=== PATIENT | male | born 1980 | race Caucasian/White ===

== ENCOUNTER 2024-05-23 13:17 | Inpatient (IN) ==
--- NOTE | 2024-05-23 14:05 | XRay Report ---
XR chest 1V portable CLINICAL HISTORY: Chest pain, nonspecific COMPARISON STUDY: 03/15/2024 FINDINGS: The present examination now demonstrates a dense bibasilar airspace opacities with air bron chograms. There are bilateral pleural effusions. There are also prominent reticular densities in the mid and upper lung zones bilaterally. Pulmonary vascularity remains unremarkable. IMPRESSION: Bilateral pneumonia with pleural effusions. ACT 112: Negative or not required by law. Electronically signed by: Cecilia Thomas M.D. 05/23/2024 2:03 PM
[2024-05-23 14:14] LABS: Basophils # (auto) 0.02 K/uL (0.00-0.20); Basophils % (auto) 0.1 %; Eosinophils # (auto) 0.03 K/uL (0.00-0.50); Eosinophils % (auto) 0.2 %; Hematocrit (blood only) 39.8 % (42.0-52.0); Hemoglobin 13.3 g/dl (14.0-18.0); Immature Granulocytes # (auto) 0.06 K/uL (0.01-0.20); Immature Granulocytes % (auto) 0.4 %; Lymphocytes # (auto) 2.46 K/uL (1.20-3.40); Lymphocytes % (auto) 16.5 %; Mean Corpuscular Hemoglobin 29.3 pg (25.0-34.0); Mean Corpuscular Hgb Conc 33.4 g/dL (32.0-36.0); Mean Corpuscular Volume 87.7 fL (80.0-100.0); Mean Platelet Volume 11.4 fL (9.4-12.4); Monocytes # (auto) 1.46 K/uL (0.11-0.59); Monocytes % (auto) 9.8 %; Neutrophils # (auto) 10.85 K/uL (1.40-6.50); Platelet Count 520 K/uL (130-400); RDW Coefficient of Variation 14.7 % (11.5-14.5); RDW Standard Deviation 46.8 fL (36.4-46.3); Red Blood Count 4.54 M/uL (4.70-6.10); White Blood Count 14.88 K/ul (4.8-10.8)
[2024-05-23 14:19] LABS: Anion Gap 9 (3-11); BUN Creatinine Ratio 14.4 (10-20); Blood Urea Nitrogen 15 mg/dl (6-23); Calcium 9.1 mg/dl (8.6-10.3); Carbon Dioxide 29 mmol/L (21-32); Chloride 102 mmol/L (98-107); Creatinine Clr Calc Pharmacy 72.9 ml/min; Glucose 91 mg/dl (70-99(Fasting)); Potassium 3.5 mmol/L (3.5-5.1); Sodium 140 mmol/L (136-145)
[2024-05-23 14:20] LABS: Alanine Aminotransferase 24 U/L (7-52); Albumin Globulin Ratio 1.4 (0.9-2); Albumin Level 3.9 gm/dl (3.4-5.0); Alkaline Phosphatase 74 U/L (34-104); Aspartate Aminotransferase 29 U/L (13-39); Bilirubin,Total 0.8 mg/dl (0.2-1.0); Globulin 2.7 gm/dl (2.5-4.0); Lipase < 3 U/L (11-82); Total Protein 6.6 gm/dl (6.0-8.3)
[2024-05-23 14:46] LABS: Troponin I High Sensitivity 1491.4 pg/ml (0-20)
[2024-05-23] MEDS: OPTIRAY 320 125ml IV ONE (15:28)
--- NOTE | 2024-05-23 15:50 | CT Scan Report ---
CT angio chest PE protocol CT DOSE: 321.9 mGy.cm HISTORY: PE chf. TECHNIQUE: Multiple CTA images of the chest were obtained after the intravenous administration of 118 ml Optiray. Coronal and sagittal MIPS were obtained from the axial data set and were submitted for review. All measurements were obtained according to NASCET criteria. A dose lowering technique was u tilized adhering to the principles of ALARA. COMPARISON STUDY: None FINDINGS: There are large bilateral pleural effusions with the adjacent compressive atelectasis. Ther e is no evidence of pulmonary embolism. There is diffuse prominence of the interstitial lung markings with perihilar haziness. In conjunction with cardiomegaly, this is consistent with CHF. Multiple marilu eolar nodules and groundglass opacities are also found associated with condition and it would be diff icult to exclude a pulmonary nodule on the basis of this examination. The upper airway is unremarkable. There is no evidence of aortic aneurysm or pericardial effusion. Th ere is no significant adenopathy. The upper abdominal images are noncontributory. IMPRESSION: No evidence of a pulmonary embolism. Findings consistent with cardiogenic pulmonary edema . ACT 112: Negative or not required by law. The above report was generated using voice recognition software. It may contain grammatical, syntax o r spelling errors. Electronically signed by: Cecilia Thomas M.D. 05/23/2024 3:49 PM
--- NOTE | 2024-05-23 15:52 | Emergency Department Note ---
Impression & Plan Acute non-ST elevation myocardial infarction (NSTEMI), Pneumonia, Congestive heart failure with cardiomyopathy and cardiomegaly, Acute hypoxic respiratory failure ED Provider Note NAME: JADE ROGERS AGE: 44 SEX: M : 1980 ARRIVES VIA: Walk-In INFORMANT: Patient, ED PROVIDER(S): Gricelda Baxter MD CHIEF COMPLAINT: Shortness of breath, heart failure HPI: this is a 44-year-old male presenting for shortness of breath x 5 days. Patient states that he was seen at an outside hospital yesterday where he was told he had a possible heart attack and diagnosed heart failure. He states he was being transferred to an outside hospital but could not do this due to childcare. Now he has childcare and presents here due to another doctor that he sees being in the area. He notes shortness of breath. He notes no chest pain however. He report exertional shortness of breath. Seen about 1 week ago at outside urgent care where he had signs of pneumonia on x-ray and was started on antibiotics, inhalers and steroids. ROS: See above HPI for pertinent positives & negatives. A total of 10 systems reviewed and were otherwise negative. PAST MEDICAL HISTORY: See Below PAST SURGICAL HISTORY: See Below FAMILY HISTORY: See Below SOCIAL HISTORY: See Below HOME MEDICATIONS: See Below ALLERGIES: See Below VITALS: See Below PHYSICAL EXAMINATION: General: resting comfortably in no acute distress Head: Normocephalic and atraumatic Eyes: Normal inspection, extraocular muscles intact Ear, nose, throat: Normal external exam Neck: Normal range of motion Respiratory: Crackles at the bases Cardiovascular: Regular rate/rhythm, no murmur GI: soft, nontender, no guarding or rebound Extremities: nontender, moves all extremities Neuro: The patient awake and alert, appropriately conversive, no focal deficits, symmetric faces Skin: Warm, dry, and intact MEDICAL DECISION MAKING: This is a 44-year-old male presenting for shortness of breath x 5 days. Patient reportedly had outside labs that showed elevated troponin and signs of heart failure as per the patient. -Vital signs reviewed showing tachycardia, hypoxia with 3 L oxygen requirement. He has signs of fluid overload with leg swelling, pleural effusions -Able to review the records outside facility where he was thought to be in either new onset heart failure from an NSTEMI versus sepsis from pneumonia. Patient left AGAINST MEDICAL ADVICE at this hospital presented here 1 day later. -Chest Xray independently interpreted by me showing likely large pleural effusions bilaterally versus focal opacities bilaterally -Patient troponin is elevated significantly here -The bloodwork is reviewed showing a leukocytosis of 14.88 with neutrophilic predominance. Otherwise electrolytes are within normal limits. Patient's troponin is significantly elevated at 1491. -Based on EKG as below, consider NSTEMI is high likelihood. Also consider pneumonia as this is what is reported on chest x-ray however this could be CHF concomitantly -Will start patient on heparin drip at this time for suspected NSTEMI. -Will met the patient for CHF, NSTEMI, possible pneumonia -Care discussed Dr. Street for admission Differential diagnosis: STEMI, NSTEMI, CHF, PE, pneumonia, sepsis Independent History obtained from: [facility] interpreted by me: ECG: ECG independently interpreted by me with sinus tachycardia rate of 128, normal [place], normal QRS, normal QTc, no ST segment elevations consistent with STEMI criteria Cardiac Monitoring: An order was placed for continuous cardiac monitoring. The monitor shows a rate of 112 with sinus tachycardia rhythm. Critical Care Note: I have personally spent 35 minutes of critical care time in the direct management of this patient. This includes bedside care, interpretation of diagnostic studies, and testing, discussion with consultants, patient, and family members, and other required patient management activities. This 35 minutes is in excess of all separately billable procedures. Past Med/Surg History Problem List (Updated 05/24/24 @ 13:26 by Gricelda Baxter MD) Acute hypoxic respiratory failure (Acute) Congestive heart failure with cardiomyopathy and cardiomegaly (Acute) Pneumonia (Acute) Acute non-ST elevation myocardial infarction (NSTEMI) (Acute) Valvular heart disease PNA (pneumonia) NSTEMI (non-ST elevated myocardial infarction) New onset of congestive heart failure Peripheral vascular disease Tobacco use Chronic kidney disease, stage I Persistent albuminuria Elevated bilirubin Serum calcium elevated Stenosis of right iliac artery Dyslipidemia Microalbuminuria Scapular dyskinesis Leg pain, right Foot pain, left (Acute) Diabetes mellitus (Chronic) Cellulitis of elbow (Acute) Foot pain, left (Acute) Hypoglycemia (Acute) Hypoglycemia (Acute) Encounter for pre-operative examination Elevated blood pressure reading Skin lesion Uncontrolled type 1 diabetes mellitus with retinopathy, with long-term current use of insulin (Chronic) Diabetic proliferative retinopathy Vitamin D deficiency Right shoulder pain Adhesive capsulitis of right shoulder Encounter for pre-operative examination Status post arthroscopy of shoulder Pain, dental (Chronic) Impacted teeth Tobacco abuse (Chronic) Soft tissue mass Depression Diabetes mellitus type 1 Medical History Hyperlipidemia Surgical History H/O arthroscopy of shoulder History of tooth extraction H/O shoulder surgery History of eye surgery Family History Father Diabetes Other No family history of adverse response to anesthesia Denies family history of Ovarian cancer Prostate cancer Heart disease Breast cancer Colorectal cancer Social History Smoking Status: Current every day smoker Tobacco Type: Cigarettes Age Started Using Tobacco: 17; packs per day: 1; Cigarettes Per Day: 1 PPD; Second Hand Exposure: No; Do You Dip or Chew Tobacco: No; Tobacco Cessation Education Requested by Patient: No Hx Alcohol Use: No Hx Substance Use: No Preferred Language: Trinidadian Communication Ability: Effective 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 Apprentice Required: No Beliefs That Will Affect Care: None marital status: Single Current Living Situation: Family Current Living Situation Comment: Lives at home with children current occupational status: unemployed Other Information That Helps Us Care for You: No Feels Safe at Home: Yes Safety Concerns: Feels Safe At This Time Diet: regular caffeine: Yes Dental Care, Regularly: Yes Physical Activity Frequency: Does not Exercise Seatbelt Use: never Assistive Devices: None Allergies Allergies Allergy/AdvReac Type Severity Reaction Status Date / Time mirtazapine AdvReac Mild Fatigued Verified 03/18/24 10:38 Home Meds Home Medications Medication Instructions Recorded Confirmed cholecalciferol (vitamin D3) 100 5,000 unit PO DAILY 09/11/22 05/23/24 mcg (4,000 unit) tablet albuterol sulfate 90 mcg/actuation 2 puff inhalation QID PRN 05/23/24 05/23/24 aerosol inhaler sob/wheeze amoxicillin 875 mg-potassium 1 tab PO BID 05/23/24 05/23/24 clavulanate 125 mg tablet insulin aspart U-100 100 unit/mL 100 unit subcut UD 05/23/24 05/23/24 subcutaneous solution (Novolog U-100 Insulin aspart) insulin glargine 100 unit/mL 25 - 30 unit subcut UD 05/23/24 05/23/24 subcutaneous solution (Lantus U-100 Insulin) lisinopril 2.5 mg tablet 2.5 mg PO UD 05/23/24 05/23/24 Previous Rx's Medication Instructions Recorded blood pressure monitor (Blood #1 ea 12/19/22 Pressure Kit) insulin syringe,safety needle 0.5 #700 ea 03/13/23 mL 30 gauge x 5/16" (BD SafetyGlide Insulin Syringe) blood sugar diagnostic (OneTouch #100 ea 06/15/23 Verio test strips) blood-glucose meter,continuous #1 ea 06/16/23 (Dexcom G6 Bed Operator) glucagon 3 mg/actuation nasal 3 mg intranasal ONCE #2 ea 10/21/23 spray (Baqsimi) urine glucose-ketones test #50 ea 11/04/23 atorvastatin 10 mg tablet 10 mg PO DAILY #30 tabs 04/13/24 blood-glucose sensor (Dexcom G6 #9 ea 04/18/24 Sensor device) blood-glucose transmitter (Dexcom #1 ea 04/18/24 G6 Transmitter device) Results & Data (ED) Vital Signs Vital Signs - 24 hr 05/23/24 13:31 05/23/24 13:56 05/23/24 13:56 Temperature 36.6 C Temperature Source Temporal Artery Scan Pulse Rate 117 H Pulse Rate [Apical] 110 H Pulse Rate from SpO2 Sensor Pulse Rhythm Pulse Rhythm [Apical] Respiratory Rate 20 18 Respiratory Effort / Characteristics Non-Labored Spontaneous Non-Labored Spontaneous Respiratory Depth Normal Normal Respiratory Pattern Regular Regular Blood Pressure 149/80 H Blood Pressure [Right Arm] 151/110 H Blood Pressure Mean 103 Blood Pressure Mean [Right Arm] 123 Blood Pressure Position Sitting Blood Pressure Position [Right Arm] Sitting Pulse Oximetry 90 87 L 92 Oxygen Delivery Method Room Air Nasal Cannula Nasal Cannula Oxygen Flow Rate 0 2 Sepsis Recent Fever Within 48 Hours No Sepsis New/Unexplained Change in Mental Status N/A Sepsis Action Taken by Nursing No Action Required Oxygen Flow Rate - Titration 2 Pulse Oximetry Post Tiitration 92 05/23/24 13:56 05/23/24 14:11 05/23/24 15:55 Temperature Temperature Source Pulse Rate 110 H 106 H Pulse Rate [Apical] 117 H Pulse Rate from SpO2 Sensor Pulse Rhythm Regular Pulse Rhythm [Apical] Regular Respiratory Rate 24 24 Respiratory Effort / Characteristics Non-Labored Spontaneous Respiratory Depth Normal Respiratory Pattern Regular Blood Pressure Blood Pressure [Right Arm] 161/104 H Blood Pressure Mean Blood Pressure Mean [Right Arm] 123 Blood Pressure Position Blood Pressure Position [Right Arm] Pulse Oximetry 92 92 Oxygen Delivery Method Nasal Cannula Nasal Cannula Oxygen Flow Rate 2 3 Sepsis Recent Fever Within 48 Hours Sepsis New/Unexplained Change in Mental Status Sepsis Action Taken by Nursing Oxygen Flow Rate - Titration Pulse Oximetry Post Tiitration 05/23/24 16:21 Temperature Temperature Source Pulse Rate 108 H Pulse Rate [Apical] Pulse Rate from SpO2 Sensor 108 H Pulse Rhythm Pulse Rhythm [Apical] Respiratory Rate 25 H Respiratory Effort / Characteristics Respiratory Depth Respiratory Pattern Blood Pressure Blood Pressure [Right Arm] Blood Pressure Mean Blood Pressure Mean [Right Arm] Blood Pressure Position Blood Pressure Position [Right Arm] Pulse Oximetry 92 Oxygen Delivery Method Oxygen Flow Rate Sepsis Recent Fever Within 48 Hours Sepsis New/Unexplained Change in Mental Status Sepsis Action Taken by Nursing Oxygen Flow Rate - Titration Pulse Oximetry Post Tiitration Laboratory Data 05/24/24 05:42 05/24/24 05:42 Lab Results 05/23/24 05/23/24 Range/Units 13:44 15:18 WBC 14.88 H (4.8-10.8) K/ul RBC 4.54 L (4.70-6.10) M/uL Hgb 13.3 L (14.0-18.0) g/dl Hct 39.8 L (42.0-52.0) % MCV 87.7 (80.0-100.0) fL MCH 29.3 (25.0-34.0) pg MCHC 33.4 (32.0-36.0) g/dL RDW Std Deviation 46.8 H (36.4-46.3) fL RDW Coeff of Ulises 14.7 H (11.5-14.5) % Plt Count 520 H (130-400) K/uL MPV 11.4 (9.4-12.4) fL Immature Gran % (Auto) 0.4 % Neut % (Auto) 73.0 % Lymph % (Auto) 16.5 % [place] % (Auto) 9.8 % Eos % (Auto) 0.2 % Baso % (Auto) 0.1 % Neut # (Auto) 10.85 H (1.40-6.50) K/uL Lymph # (Auto) 2.46 (1.20-3.40) K/uL [place] # (Auto) 1.46 H (0.11-0.59) K/uL Eos # (Auto) 0.03 (0.00-0.50) K/uL Baso # (Auto) 0.02 (0.00-0.20) K/uL Immature Gran # (Auto) 0.06 (0.01-0.20) K/uL PT 12.1 H (9.0-12.0) Seconds INR 1.1 (0.9-1.1) APTT 27 (21-31) Seconds PTT Ratio 1.0 Sodium 140 (136-145) mmol/L Potassium 3.5 (3.5-5.1) mmol/L Chloride 102 (98-107) mmol/L Carbon Dioxide 29 (21-32) mmol/L Anion Gap 9 (3-11) BUN 15 (6-23) mg/dl Creatinine 1.04 (0.6-1.4) mg/dl Est Cr Clr Drug Dosing 72.9 ml/min eGFR 90.80 BUN/Creatinine Ratio 14.4 (10-20) Glucose 91 (70-99(Fasting)) mg/dl Calcium 9.1 (8.6-10.3) mg/dl Total Bilirubin 0.8 (0.2-1.0) mg/dl AST 29 (13-39) U/L ALT 24 (7-52) U/L Alkaline Phosphatase 74 (34-104) U/L Troponin I High Sens 1491.4 H* 1554.4 H* (0-20) pg/ml Total Protein 6.6 (6.0-8.3) gm/dl Albumin 3.9 (3.4-5.0) gm/dl Globulin 2.7 (2.5-4.0) gm/dl Albumin/Globulin Ratio 1.4 (0.9-2) Lipase < 3 L (11-82) U/L Administered Medications Aspirin (Aspirin 81 Mg Ectab) 81 mg PO DAILY KIERAN Stop: 06/23/24 08:59 Last Admin: 05/24/24 08:00 Dose: 81 mg Documented By: COURTNEY Atorvastatin Calcium (Atorvastatin 40 Mg Tab) 40 mg PO [facility] Stop: 06/23/24 08:59 Last Admin: 05/24/24 08:00 Dose: 40 mg Documented By: COURTNEY Clopidogrel Bisulfate (Clopidogrel Bisulfate 75 Mg Tab) 75 mg PO [facility] Stop: 06/23/24 08:59 Last Admin: 05/24/24 07:59 Dose: 75 mg Documented By: COURTNEY Dextrose (Dextrose 50% 50 Ml Syringe) 25 - 50 ml IV UD PRN; Protocol PRN Reason: Hypoglycemia Protocol Stop: 06/22/24 16:46 Last Admin: 05/24/24 06:27 Dose: 25 ml Documented By: [facility] Furosemide (Furosemide 40 Mg/4 Ml Vial) 40 mg IV BID17 [facility] Stop: 06/23/24 08:59 Last Admin: 05/24/24 08:01 Dose: 40 mg Documented By: COURTNEY Heparin Sodium/Dextrose (Heparin 96682 Unit/500 Ml D5w) 25,000 units in 500 mls @ 15 mls/hr IV .Q24H [facility]; Protocol Stop: 06/22/24 16:14 Last Titration: 05/24/24 07:14 Dose: 750 units/hr, 15 mls/hr Documented By: NEW Co-signed By: COURTNEY Titration: 05/24/24 00:27 Dose: 700 units/hr, 14 mls/hr Documented By: NEW Co-signed By: ALEX Admin: 05/23/24 17:45 Dose: 700 units/hr, 14 mls/hr Documented By: MARIANA Co-signed By: PAMELAD Insulin Aspart (Insulin Aspart Per Unit Charge) 0 units SC ACHS [facility] Stop: 06/22/24 20:59 Last Admin: 05/24/24 11:44 Dose: Not Given Documented By: Admin: 05/24/24 07:52 Dose: Not Given Documented By: Admin: 05/23/24 20:39 Dose: Not Given Documented By: NALLELY Lisinopril (Lisinopril 2.5 Mg Tab) 2.5 mg PO BID [facility] Stop: 06/22/24 20:59 Last Admin: 05/24/24 08:01 Dose: 2.5 mg Documented By: Admin: 05/23/24 22:29 Dose: 2.5 mg Documented By: NALLELY Metoprolol Tartrate (Metoprolol Tartrate 25 Mg Tab) 12.5 mg PO BID [facility] Stop: 06/22/24 16:49 Last Admin: 05/24/24 08:00 Dose: 12.5 mg Documented By: Admin: 05/23/24 22:29 Dose: 12.5 mg Documented By: Admin: 05/23/24 17:38 Dose: 12.5 mg Documented By: MARIANA Nitroglycerin (Nitroglycerin 2% Ointment 30gm Tube) 0.5 inch EXT Q6H [facility] Stop: 06/22/24 16:59 Last Admin: 05/24/24 11:27 Dose: 0.5 inch Documented By: Admin: 05/24/24 06:03 Dose: 0.5 inch Documented By: Admin: 05/23/24 22:29 Dose: 0.5 inch Documented By: Admin: 05/23/24 18:07 Dose: 0.5 inch Documented By: MARIANA Discontinued Medications Clopidogrel Bisulfate (Clopidogrel Bisulfate 300 Mg Tab) 300 mg PO NOW STA Stop: 05/23/24 16:43 Last Admin: 05/23/24 17:37 Dose: 300 mg Documented By: MARIANA Furosemide (Furosemide 40 Mg/4 Ml Vial) 40 mg IV ONE ONE Stop: 05/23/24 16:43 Last Admin: 05/23/24 17:38 Dose: 40 mg Documented By: MARIANA Heparin Sodium (Porcine) (Heparin Sod (Porcine) 1000 Unit/Ml) 1 units IV NOW ONE Stop: 05/23/24 16:15 Last Admin: 05/23/24 17:43 Dose: 4,000 units Documented By: MARIANA Co-signed By: JENNIFER Heparin Sodium/Dextrose (Heparin Iv Adult Wt-Based Low-Dose W/ Initial Bolus Protocol) 1 each IV NOW STA; Protocol Stop: 05/23/24 16:00 Last Admin: 05/23/24 18:05 Dose: Not Given Documented By: MARIANA Insulin Glargine (Lantus Per Unit Charge) 10 units SQ NOW ONE Stop: 05/23/24 17:11 Last Admin: 05/23/24 17:41 Dose: 10 units Documented By: MARIANA Co-signed By: JENNIFER Ioversol (Optiray 320 125ml) 118 ml IV ONCE ONE Stop: 05/23/24 15:28 Last Admin: 05/23/24 15:28 Dose: 118 ml Documented By: [facility] Imaging Data Radiologist's Impression: Chest X-Ray 05/23/24 13:37 XR chest 1V portable CLINICAL HISTORY: Chest pain, nonspecific COMPARISON STUDY: 03/15/2024 FINDINGS: The present examination now demonstrates a dense bibasilar airspace opacities with air bronchograms. There are bilateral pleural effusions. There are also prominent reticular densities in the mid and upper lung zones bilaterally. Pulmonary vascularity remains unremarkable. IMPRESSION: Bilateral pneumonia with pleural effusions. ACT 112: Negative or not required by law. Electronically signed by: Cecilia Thomas M.D. 05/23/2024 2:03 PM Chest CTA 05/23/24 15:05 CT angio chest PE protocol CT DOSE: 321.9 mGy.cm HISTORY: PE chf. TECHNIQUE: Multiple CTA images of the chest were obtained after the intravenous administration of 118 ml Optiray. Coronal and sagittal MIPS were obtained from the axial data set and were submitted for review. All measurements were obtained according to NASCET criteria. A dose lowering technique was utilized adhering to the principles of ALARA. COMPARISON STUDY: None FINDINGS: There are large bilateral pleural effusions with the adjacent compressive atelectasis. There is no evidence of pulmonary embolism. There is diffuse prominence of the interstitial lung markings with perihilar haziness. In conjunction with cardiomegaly, this is consistent with CHF. Multiple alveolar nodules and groundglass opacities are also found associated with condition and it would be difficult to exclude a pulmonary nodule on the basis of this examination. The upper airway is unremarkable. There is no evidence of aortic aneurysm or pericardial effusion. There is no significant adenopathy. The upper abdominal images are noncontributory. IMPRESSION: No evidence of a pulmonary embolism. Findings consistent with cardiogenic pulmonary edema. ACT 112: Negative or not required by law. The above report was generated using voice recognition software. It may contain grammatical, syntax or spelling errors. Electronically signed by: Cecilia Thomas M.D. 05/23/2024 3:49 PM Discharge Plan Visit Data Chief Complaint: Shortness of Breath/Dyspnea Stated Complaint: SOB, ED Provider: Gricelda Baxter Discharge Problem: Acute non-ST elevation myocardial infarction (NSTEMI), Pneumonia, Congestive heart failure with cardiomyopathy and cardiomegaly, Acute hypoxic respiratory failure Patient Disposition: Admitted As Inpatient Discharge Instructions Interventions: ED Discharge Assessment Last Done: 05/23/24 20:57
--- NOTE | 2024-05-23 16:08 | Electrocardiogram Report ---
Test Reason : Blood Pressure : */* mmHG Vent. Rate : 128 BPM Atrial Rate : 128 BPM P-R Int : 114 ms QRS Dur : 76 ms QT Int : 304 ms P-R-T Axes : 43 68 160 degrees QTcB Int : 443 ms Sinus tachycardia Possible Left atrial enlargement Abnormal ECG When compared with ECG of 15-Mar-2024 08:46, Vent. rate has increased by 48 bpm Nonspecific T wave abnormality now evident in Inferior leads T wave inversion no longer evident in Anterior leads Confirmed by Ethan Rodriguez ([id number]) on 05/23/2024 4:06:31 PM Referred By: Confirmed By: Ethan Rodriguez
--- NOTE | 2024-05-23 16:18 | History & Physical Report ---
Date of Service May 23, 2024 Assessment & Plan (1) New onset of congestive heart failure: (2) NSTEMI (non-ST elevated myocardial infarction): (3) Peripheral vascular disease: (4) Tobacco use: (5) Chronic kidney disease, stage I: Plan 44-year-old male with past medical history of poorly controlled type I DM, CKD, PVD who left [facility] AMA after being diagnosed with an NSTEMI 05/22/2024, and he was been treated for pneumonia in the last week who presents to the ER with dyspnea, hypoxia a uptrending troponin and clinical evidence of CHF. Secondary pneumonia is also suspected due to persistent leukocytosis and mixed opacities in addition to edema. Patient has been heparinized for new acute decompensated heart failure without ST elevation on EKG. He is admitted for treatment of new CHF with Lasix, will continue treatment for potential underlying pneumonia, and consult cardiology for ischemic workup? Catheterization Recent NSTEMI, new onset heart failure Seen at OSH, patient left AGAINST MEDICAL ADVICE 05/22/2024 3L new oxygen requirement with fluid overload of the legs, bilateral pleural effusions CTA with bilateral pleural effusions, no PE, and multiple prior glass capacities/pulmonary edema Multiple cardiac risk factors including type I DM poorly controlled, tobacco use, hypertension. Patient with an uncle with an MT at age 37 and his father had an MT at 50s Suspect progressive angina, unstable angina and possible type I event morning of 05/22 Initial troponin 1491.4, repeat pending. Trended every 6 hours. OSH 2035 --> 1495 on 05/22 at [facility]. Uptrending today Echo pending Continue statin increased to 40 mg, adjust further based on AM lipid panel. - +Metoprolol 12.5mg BID tartrate - Nitro 0.5inch q6h Lasix 40 mg IV twice daily, potassium supplementation ordered Pneumonia Leukocytosis of 14 with neutrophilic predominance Has had chills in the last week and a cough preceding his chest pain, received 1 dose of an antibiotic yesterday and is otherwise not taking prednisone or an antibiotic since. Chest x-ray: Bilateral pneumonia CTAchest: No acute PE. Consistent with CHF, some groundglass opacities, pulmonary edema Will continue on treatment with Rocephin/doxycycline for immunity acquired pneumonia. Suspect predominantly due to NSTEMI and new onset heart failure Type I DM Last A1c 8% Reviewed patient's insulin pump on admission. Per settings uses approximately 20 units basal, 4-6 meals sliding scale with meals SSI based on basal rate ordered, will transition to pharmacy controlled glycemic management from pump due to patient having some difficulty with his pump recently. BSG 91 adequate at time of admission CKD Baseline creatinine around 0.93 Continue KARLA Hypertension Continue KARLA, metoprolol Peripheral vascular disease With ongoing tobacco use Had been seen for claudication in 2022. Preferred conservative medical therapy and was continued on cilostazol at that time. Has not been taking this recently. Aspirin, anticoagulation as noted DVT prophylaxis: Anticoagulated Diet: Clears/DM2, n.p.o. midnight pending cath evaluation CODE STATUS: Full code Disposition: PCU History of Present Illness Primary Care Provider: Jignesh Kingston DO Jm is a 44-year-old male with past medical history of CKD, PVD, tobacco use, uncontrolled type 1 diabetes, depression who presents to the ER with 5 days of dyspnea and fatigue, was told at an OSH that he may have had a heart attack and heart failure and was being transferred to another hospital but could not follow through with this due to childcare needs. After securing childcare does return to the ER at [facility] as he has providers in the area. Reports pneumonia on chest x-ray 1 week ago and was started on antibiotics, inhalers, steroids Isreal is seen at the bedside. Reports he had intermittent chest pain with exertion for a few weeks, but hadn't followed up on this yet. Missed his stress test due to son having th eflu. last week chest pain is much worse with exertion and going up stairs, takes longer to improve. yesterday occured for the first time while sleeping and woke him from sleep. That was the first time he had cp at rest. Did seem more severe than previously. Went to [facility] and was dx with NSTEMI. Left AMA due to childcare conerns Today 2-3x episdoes of cehst pain at rest lasting less than a minute. Chest pain free on admit assessment. Shortness of breath developed abruptly yesterday, and progressively worsening since. WOrse trying to lay flat/sleep. Legs are swollen in the last day. takes baby aspirin daily usually, did not take today beacuse they gave him 3 doses yesterday, a steroid, and an antibiotic yesterday Patient's uncle had an MT at age 37, father had an MT in 50s prescribed lisinopril but hasn't taken recently due to lightheadedness Is also had a feeling of feverishness and chills although no documented temperature in the last week. Has had a cough. DM1, on insulin pump. Not sure of basal rate. Not sure of 24 hour TDD. 20 u basal, 4-6 per meal based on PUMP No aspirin today Medical History: Reviewed Medications: Reviewed Surgical History: Reviewed Family history: Reviewed Allergies: Reviewed Social History: +Tobacco use. 1ppd. No ETOH Code Status: Full. Surrogate DM Yenifer Cleary. Allergies Allergy/AdvReac Type Severity Reaction Status Date / Time mirtazapine AdvReac Mild Fatigued Verified 03/18/24 10:38 Home Medications Medication Instructions Recorded Confirmed Type cholecalciferol (vitamin D3) 100 5,000 unit PO DAILY 09/11/22 03/25/24 History mcg (4,000 unit) tablet blood pressure monitor (Blood #1 ea 12/19/22 03/25/24 Rx Pressure Kit) insulin syringe,safety needle 0.5 #700 ea 03/13/23 03/25/24 Rx mL 30 gauge x 5/16" (BD SafetyGlide Insulin Syringe) blood sugar diagnostic (OneTouch #100 ea 06/15/23 03/25/24 Rx Verio test strips) blood-glucose meter,continuous #1 ea 06/16/23 03/25/24 Rx (Dexcom G6 Production Mechanic) glucagon 3 mg/actuation nasal 3 mg intranasal ONCE #2 ea 10/21/23 03/25/24 Rx spray (Baqsimi) urine glucose-ketones test #50 ea 11/04/23 03/25/24 Rx Lantus U-100 Insulin 100 unit/mL 25 - 30 unit (0.25 - 0.3 mL) 11/23/23 03/25/24 Rx subcutaneous solution (insulin subcut HS #3 vials glargine) lisinopril 2.5 mg tablet 2.5 mg PO BID #180 tabs 03/25/24 03/25/24 Rx atorvastatin 10 mg tablet 10 mg PO DAILY #30 tabs 04/13/24 Rx blood-glucose sensor (Dexcom G6 #9 ea 04/18/24 04/18/24 Rx Sensor device) blood-glucose transmitter (Dexcom #1 ea 04/18/24 04/18/24 Rx G6 Transmitter device) insulin aspart U-100 100 unit/mL See Rx Instructions .Route 04/26/24 Rx subcutaneous solution .COMPLEX #80 mL Past Med/Surg History Problem List (Updated 05/23/24 @ 16:[address] MD) NSTEMI (non-ST elevated myocardial infarction) New onset of congestive heart failure Peripheral vascular disease Tobacco use Chronic kidney disease, stage I Persistent albuminuria Elevated bilirubin Serum calcium elevated Stenosis of right iliac artery Dyslipidemia Microalbuminuria Scapular dyskinesis Leg pain, right Foot pain, left (Acute) Diabetes mellitus (Chronic) Cellulitis of elbow (Acute) Foot pain, left (Acute) Hypoglycemia (Acute) Hypoglycemia (Acute) Encounter for pre-operative examination Elevated blood pressure reading Skin lesion Uncontrolled type 1 diabetes mellitus with retinopathy, with long-term current use of insulin (Chronic) Diabetic proliferative retinopathy Vitamin D deficiency Right shoulder pain Adhesive capsulitis of right shoulder Encounter for pre-operative examination Status post arthroscopy of shoulder Pain, dental (Chronic) Impacted teeth Tobacco abuse (Chronic) Soft tissue mass Depression Diabetes mellitus type 1 Medical History Hyperlipidemia Surgical History H/O arthroscopy of shoulder History of tooth extraction H/O shoulder surgery History of eye surgery Family History Father Diabetes Other No family history of adverse response to anesthesia Denies family history of Ovarian cancer Prostate cancer Heart disease Breast cancer Colorectal cancer Social History Smoking Status: Current every day smoker Tobacco Type: Cigarettes Age Started Using Tobacco: 17; packs per day: 1; Cigarettes Per Day: 1 ppd- ADVISED; Second Hand Exposure: No; Do You Dip or Chew Tobacco: No; Hx Alcohol Use: Yes Alcohol type: beer and hard liquor Hx Substance Use: No Preferred Language: Chinese Communication Ability: Effective Cosmetic Account Coordinator Required: No Beliefs That Will Affect Care: None marital status: Single Current Living Situation: Family Current Living Situation Comment: LIVES W/ SONS current occupational status: unemployed Feels Safe at Home: Yes Diet: regular caffeine: Yes Dental Care, Regularly: Yes Physical Activity Frequency: Does not Exercise Seatbelt Use: never Assistive Devices: Glasses Physical Exam Physical Exam: General: A&Ox3. NAD. Cooperative. HEENT: Atraumatic, normocephalic. Pulm: Bibasilar rales. Comfortable on 3L NC. Cardiac: Regular, tachycardic. Radial pulses intact and symmetrical. +JVD Abdominal: Nontender, nondistended, soft. BS present. Ext: Bilateral LE pitting edema RUE with healing scabs/wounds from picking and cat scratches. No areas of demarkated erythema/warmth/tenderness suggestive of cellulitis Results & Data Results & Data Vital Signs (Past 12 Hours) Vital Signs Temp Pulse Pulse Resp BP BP Pulse Ox 05/23/24 15:55 117 H 24 161/104 H 92 05/23/24 14:11 106 H 05/23/24 13:56 110 H 24 92 05/23/24 13:56 110 H 18 151/110 H 92 05/23/24 13:56 87 L 05/23/24 13:31 36.6 C 117 H 20 149/80 H 90 O2 Del Method O2 Flow Rate 05/23/24 15:55 Nasal Cannula 3 05/23/24 14:11 05/23/24 13:56 Nasal Cannula 2 05/23/24 13:56 Nasal Cannula 2 05/23/24 13:56 Nasal Cannula 0 05/23/24 13:31 Room Air PG Care Time/CCT Total # of Minutes Spent Total Time Spent with Patient: Total time spent is greater than 50% in coordination of care (as documented) at patient's floor/unit and/or counseling patient: Coding Level of Care Code 42549 INT INP/OBS CARE 3/75MIN Diagnoses New onset of congestive heart failure I50.9 NSTEMI (non-ST elevated myocardial infarction) I21.4 Peripheral vascular disease I73.9 Tobacco use Z72.0 Chronic kidney disease, stage I N18.1
[2024-05-23] MEDS ORDERED: GLUCOSE 40% GEL 15 GM TUBE PO PRN (16:47)
[2024-05-23] MEDS ORDERED: PHARMACY GLYCEMIC MGMT CONSULT PRN (16:47)
[2024-05-23] MEDS ORDERED: GLUCAGON FOR INJ 1 MG VIAL SQ PRN (16:47)
[2024-05-23] MEDS ORDERED: GLUCOSE 10 TAB/TUBE PO PRN (16:47)
[2024-05-23] MEDS ORDERED: NITROGLYCERIN SL 0.4 MG/TAB TAB SL PRN (16:47)
[2024-05-23 17:07] LABS: INR 1.1 (0.9-1.1); Partial Thromboplastin Time 27 Seconds (21-31); Prothrombin Time 12.1 Seconds (9.0-12.0)
[2024-05-23] MEDS: CLOPIDOGREL BISULFATE 300 MG TAB PO STA (17:37)
[2024-05-23] MEDS: METOPROLOL TARTRATE 25 MG TAB PO SCH (17:38)
[2024-05-23] MEDS: FUROSEMIDE 40 MG/4 ML VIAL IV ONE (17:38)
[2024-05-23] MEDS: LANTUS PER UNIT CHARGE SQ ONE (17:41)
[2024-05-23] MEDS: HEPARIN SOD (PORCINE) 1000 UNIT/ML IV ONE (17:43)
[2024-05-23] MEDS: HEPARIN 25000 UNIT/500 ML D5W 25,000 UNITS/500 ML BAG IV SCH (17:45)
[2024-05-23] MEDS: Heparin IV Adult Wt-Based Low-Dose w/ INITIAL Bolus Protocol IV STA (18:05)
[2024-05-23] MEDS: NITROGLYCERIN 2% OINTMENT 30GM TUBE EXT SCH (18:07)
[2024-05-23] MEDS: INSULIN ASPART PER UNIT CHARGE SC SCH (20:39)
--- OUTSIDE RECORDS SUMMARY | 2024-05-23 20:58 | External Medical Summary ---
Author Name Unknown Address Unknown Organization R4LH:[facility] [address] [address] Laboratory Report Ordering Provider Test Date Status APRIL AIKEN 05/22/2024 15:19:00 Final Observation Date Value Abnormality Reference (Units ) Status Urine WBC 05/22/2024 15:43 4-6 Abnormal ZTF (/hpf) Fi nal Urine RBC 05/22/2024 15:43 0-4 ZTFR (/hpf) F inal Urine Bacteria 05/22/2024 15:43 None NONE (/h pf) Final Epithelial Cells 05/22/2024 15:43 0-5 ZTF (/ lpf) Final Finely Granular Casts 05/22/2024 15:43 0-1 0 (/lpf) Final Mucous, Urine 05/22/2024 15:43 None Seen Abnormal NONE Final Performing Location [facility] [address] [place] [id number]
--- OUTSIDE RECORDS SUMMARY | 2024-05-23 20:58 | External Medical Summary ---
Author Name Unknown Address Unknown Organization R4LH:[facility] [address] [address] Laboratory Report Ordering Provider Test Date Status APRIL AIKEN 05/22/2024 15:24:00 Final Observation Date Value Abnormality Reference (Units ) Status High Sensitivity Troponin I 05/22/2024 16:05 1495 Above upper panic limits <18 (ng/L) Final CubresaCoulter Access hs-Tro ponin I assay CRITICAL VALUE CALLED / READ BACK BY: DR. Zavala at ER 05/22/24 16:04v NL Performing Location [facility] [address] [address]
--- OUTSIDE RECORDS SUMMARY | 2024-05-23 20:58 | External Medical Summary ---
Author Name Unknown Address Unknown Organization R4LH:[facility] [address] [address] Laboratory Report Ordering Provider Test Date Status TANJA AIKENRaven 05/22/2024 13:55:00 Final Observation Date Value Abnormality Reference (Units ) Status B-Type Natriuretic Peptide 05/22/2024 14:50 1183 Above high normal <100 (pg/mL) Final Less than 100 pg/mL: heart f ailure is improbable. Greater than 100 pg/mL; heart failure is increasingly probable. At levels greater than 500 pg/mL; heart failure is the most likely diagnosis. BNP results should always be interpreted in the context of other clinical information, especially in the range between 100 and 500 pg/mL. *NEJM 350, No.7; 010-996; 05/18/03 Performing Location [facility] [address] [address]
--- OUTSIDE RECORDS SUMMARY | 2024-05-23 20:58 | External Medical Summary ---
Author Name Unknown Address Unknown Organization R4LH:[facility] [address] [address] Laboratory Report Ordering Provider Test Date Status APRIL AIKEN 05/22/2024 15:24:00 Final Observation Date Value Abnormality Reference (Units ) Status Lactic Acid 05/22/2024 15:54 3.3 Above upper panic pérez its 0.4-2.0 (mmol/L) Final CRITICAL VALUE CALLED / READ BACK BY: DR. Zavala 05/22/24 16:50 NL Performing Location [facility] [address] [address]
--- OUTSIDE RECORDS SUMMARY | 2024-05-23 20:58 | External Medical Summary ---
Author Name Unknown Address Unknown Organization R4LH:[facility] [address] [address] Laboratory Report Ordering Provider Test Date Status APRIL AIKEN 05/22/2024 15:19:00 Final Observation Date Value Abnormality Reference (Units ) Status UA Culture Screen 05/22/2024 15:43 Negative screen. Culture not indicated. Final Urine Clarity 05/22/2024 15:43 Clear CLER Final Urine Color 05/22/2024 15:43 Yellow YELL Final Specific [place], Urine 05/22/2024 15:43 1.025 1.000-1.025 Final Urine pH 05/22/2024 15:43 6.0 5.0-8.0 Final Urine Leukocyte Esterase 05/22/2024 15:43 Negative NEGAT Final Urine Nitrites 05/22/2024 15:43 Negative NEGAT Final Protein, Urine 05/22/2024 15:43 Moderate Abnormal NEGAT (mg/dL) Final Glucose, Urine 05/22/2024 15:43 Negative NEGAT (mg/dL) Final Urine Ketones 05/22/2024 15:43 Trace Abnormal NEGAT Final Urine Urobilinogen 05/22/2024 15:43 0.2 0.0-1.0 (mg/dL) Final Urine Bilirubin 05/22/2024 15:43 Negative NEGAT Final Blood, Urine 05/22/2024 15:43 Negative NEGAT Final Urine Source 05/22/2024 15:19 Clean Catch Urine Final Performing Location [facility] [address] [address]
--- OUTSIDE RECORDS SUMMARY | 2024-05-23 20:58 | External Medical Summary ---
Author Name Unknown Address Unknown Organization R4LH:[facility] [address] [address] Laboratory Report Ordering Provider Test Date Status DAVID MÉNDEZALEXIVIJI 05/22/2024 13:49:00 Final Observation Date Value Abnormality Reference (Units ) Status Prothrombin Time 05/22/2024 14:23 14.0 11.9-1 4.5 (Sec) Final INR 05/22/2024 14:23 1.1 Fin al Performing Location [facility] [address] [place] [address]
--- OUTSIDE RECORDS SUMMARY | 2024-05-23 20:58 | External Medical Summary ---
Author Name Unknown Address Unknown Organization R1WR:[facility] [address] [place] [address] Laboratory Report Ordering Provider Test Date Status APRIL AIKEN 05/22/2024 16:13:00 Final Observation Date Value Abnormality Reference (Units ) Status Glucose, POC 05/22/2024 16:14 168 Above high normal 70 -99 (mg/dL) Final Performing Location [facility] [address] [place] [address]
--- OUTSIDE RECORDS SUMMARY | 2024-05-23 20:58 | External Medical Summary ---
Author Name Unknown Address Unknown Organization R1WR:[facility] [address] [place] [address] Laboratory Report Ordering Provider Test Date Status APRIL HERNANDEZ 05/22/2024 14:08:00 Final Observation Date Value Abnormality Reference (Units ) Status Specimen Description 05/22/2024 13:50 Blood Final Special Requests 05/23/2024 12:56 RAC Final Culture 05/23/2024 12:56 Pending Fin al Report Status 05/23/2024 12:56 Pending Final Performing Location [facility] [address] [place] [address]
--- OUTSIDE RECORDS SUMMARY | 2024-05-23 20:58 | External Medical Summary ---
Author Name Unknown Address Unknown Organization R4LH:[facility] [address] [address] Laboratory Report Ordering Provider Test Date Status APRIL AIKEN 05/22/2024 14:24:00 Final Observation Date Value Abnormality Reference (Units ) Status High Sensitivity Troponin I 05/22/2024 15:41 2043 Above upper panic limits <18 (ng/L) Final BeckmanCoulter Access hs-Tro ponin I assay CRITICAL VALUE CALLED / READ BACK BY: DR CHEN,ER, [id number] NL Performing Location [facility] [address] [address]
--- OUTSIDE RECORDS SUMMARY | 2024-05-23 20:58 | External Medical Summary ---
Author Name Unknown Address Unknown Organization R1WR:[facility] [address] [place] [address] Laboratory Report Ordering Provider Test Date Status APRIL AIKEN 05/22/2024 14:12:00 Final Observation Date Value Abnormality Reference (Units) Status pH POC 5 14:11 7.423 Above high normal 7.32-7.42 Final pCO2 POC 5 14:11 41.5 41-51 (mm Hg) Final pO2 POC 5 14:11 28.9 25-50 (mm Hg) Final HCO3 POC 5 14:11 27.1 Above high normal 22-26 (mmol/L) Final Base Excess Venous 5 14:11 2.3 Above high normal 0-2 (mmol/L) Final Hematocrit POC 5 14:11 45 40.0-51.0 (%) Final Hemoglobin POC 5 14:11 14.7 13.7-17.5 (g/dL) Final COHB POC 5 14:11 1.2 0.5-1.4 (%) Final MetHb POC 5 14:11 0.5 0.4-1.5 (%) Final FO2Hb Venous POC 5 14:11 51.8 Below low normal 70-80 (%) Final SO2 POC 5 14:11 52.7 Below low normal 70-85 (%) Final Sodium POC 5 14:11 140 136-145 (mmol/L) Final Potassium POC 5 14:11 3.5 3.5-5.1 (mmol/L) Final Chloride POC 5 14:11 99 98-107 (mmol/L) Final TCO2 POC 5 14:11 28.3 20-31 (mmol/L) Final Glucose POC 5 14:11 159 Above high normal 70-99 (mg/dL) Final Ionized Calcium POC 5 14:11 1.12 Below low normal 1.15-1.30 (mmol/L) Final Lactate POC 5 14:11 2.9 Above high normal 0.4-2.0 (mmol/L) Final Temperature POC 5 14:11 37.0 Final Eyad Test POC 5 14:11 N/A Final Sample Type POC 5 14:11 Venous Final Site POC 5 14:11 VENIPUNCTURE Final pH Temp. Cor. POC 5 14:11 7.423 Above high normal 7.32-7.42 Final pCO2 Temp. Cor. POC 5 14:11 41.5 41-51 (mm Hg) Final pO2 Temp. Cor. POC 5 14:11 28.9 25-50 (mm Hg) Final Interference note: 5 14:11 Therapeutic levels of Hydroxocobalamin may cause lower than expected Final values for carboxyhemoglobin (COHb) and methemoglobin (MetHb). Performing Location [facility] [address] [place] [address]
--- OUTSIDE RECORDS SUMMARY | 2024-05-23 20:58 | External Medical Summary ---
Author Name Unknown Address Unknown Organization R1WR:[facility] [address] [place] [address] Laboratory Report Ordering Provider Test Date Status APRIL HERNANDEZ 05/22/2024 13:50:00 Final Observation Date Value Abnormality Reference (Units ) Status Specimen Description 05/22/2024 13:50 Blood Final Special Requests 05/23/2024 12:56 LAC Final Culture 05/23/2024 12:56 Pending Fin al Report Status 05/23/2024 12:56 Pending Final Performing Location [facility] [address] [place] [address]
--- OUTSIDE RECORDS SUMMARY | 2024-05-23 20:59 | External Medical Summary | Summary of Care ---
Author Name Unknown Organization [facility] Address [address] [place] [address] Phone [phone] Care Team Providers Care Lens Grinding Machine Operator Name Role Phone Jignesh Kingston DO Primary Care Provider + Encounter Details Date Type Department Care Team (Late st Contact Info) Description 04/25/2024 Population Health External Data Unspecified Department Allergies Active Allergy Reactions Criticality Noted Date Comments Mirtazapine 01/22/2022 Other Reaction(s): Fatigued documented as of this encounter (statuses as of 04/25/2024) Medications OneTouch Verio In Vitro Strip USE TO TEST BLOOD SUGAR 7 8 TIMES DAILY 12/29/19 Active Lantus 100 UNIT/ML Subcutaneous Solution 12 Units at bedtime. 12/27/19 Active ReliOn Insulin Syringe 31G X 5/16" 0.5 ML USE FOUR PER DAY WITH INSULIN 01/20/20 Active GlucaGen HypoKit 1 MG Injection Solution Reconstituted NEEDED FOR HYPOGLYCEMIA 12/27/19 Active traZODone HCl 50 MG Oral Tablet (Desyrel) Take 1 Tablet by mouth at bedtime. Take 1-2 tabs at bedtime Active Insulin Aspart 100 UNIT/ML Subcutaneous Solution Pen-injector (novoLOG) Inject 0-10 Units under the skin 4 times a day before meals and at bedtime. Sliding scale based on glucose Active Vitamin D3 1.25 MG (56792 UT) Oral Capsule TAKE 1 CAPSULE BY MOUTH ONCE A WEEK FOR 14 WEEKS 10/05/19 Active Nicotine 14 MG/24HR Transdermal Patch 24 Hour (Nicoderm CQ) APPLY 1 PATCH TOPICALLY ONCE DAILY 10/06/19 22 Active Atorvastatin Calcium 10 MG Oral Tablet (Lipitor) Take 1 Tablet by mouth in the morning. Active Dexcom G6 Sensor CHANGE EVERY 10 DAYS 09/11/19 24 Active Dexcom G6 Transmitter 10/02/19 24 Active Baqsimi One Pack 3 MG/DOSE Nasal Powder USE 3MG INTRANASALLY ONCE . 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 10/23/2021 documented as of this encounter (statuses as of 04/25/2024) Resolved Problems Problem Noted Date Diagnosed Date Resolved Date Food insecurity 03/16/2023 04/16/2023 Overview: Per [facility] Protocol documented as of this encounter (statuses as of 04/25/2024) Social History Tobacco Use Types Packs/Day Years Used Date Smoking Tobacco: Every Day Cigarettes Smokeless Tobacco: Never Comments:trying to quit Alcohol Use Standard Drinks/Week Comments Never 0 (1 standard drink = 0.6 oz pur e alcohol) Humiliation, Afraid, Rape, and Kick questionnair e Answer Date Recorded Within the last year, have y ou been afraid of your partner or ex-partner? No 03/04/2023 Within the last year, have y ou been humiliated or emotionally abused in other ways by your partner or ex-partner? No Within the last year, have y ou been kicked, hit, slapped, or otherwise physically hurt by your partner or ex-partner? No 03/04/2023 Within the last year, have y ou been raped or forced to have any kind of sexual activity by your partner or ex-partner? No 03/04/2023 Social Connection and Isolation Panel [NHANES] A nswer Date Recorded In a typical week, how many times do you talk on the phone with family, friends, or neighbors? Once a week 03/04/2023 How often do you get together with friends or re latives? Once a week 03/04/2023 How often do you attend gnosticism or judaism serv ices? Never 03/04/2023 Do you belong to any clubs o r organizations such as gnosticism groups, unions, fraternal or athletic groups, or school groups? No 03/04/2023 How often do you attend meet ings of the clubs or organizations you belong to? Never 03/04/2023 Are you , , di vorced, , never , or living with a partner? Never 03/04/2023 AUDIT-C Answer Date Recorded Q1: How often do you have a drink containing alc ohol? Monthly or less 03/04/2023 Q2: How many drinks containi ng alcohol do you have on a typical day when you are drinking? 1 or 2 03/04/2023 Q3: How often do you have si x or more drinks on one occasion? Never 03/04/2023 Overall Financial Resource Strain (CARDIA) Answe r Date Recorded How hard is it for you to pa y for the very basics like food, housing, medical care, and heating? Not hard at all 03/04/2023 [facility] - Occupational Stress Questionnaire Answer Date Recorded Do you feel stress - tense, restless, nervous, or anxious, or unable to sleep at night because your mind is troubled all the time - these days? To some extent 03/04/2023 Exercise Vital Sign Answer Date Recorde d On average, how many days pe r week do you engage in moderate to strenuous exercise (like a brisk walk)? 0 days 03/04/2023 On average, how many minutes do you engage in exercise at this level? 0 min 03/04/2023 Hunger Vital Sign Answer Date Recorded Within the past 12 months, y ou worried that your food would run out before you got the money to buy more. Never true 04/20/19 25 Within the past 12 months, t he food you bought just didn't last and you didn't have money to get more. Never true 04/20/2024 PRAPARE - Transportation Answer Date Re corded In the past 12 months, has l ack of transportation kept you from medical appointments or from getting medications? No 02/05 In the past 12 months, has l ack of transportation kept you from meetings, work, or from getting things needed for daily living? No 03/04/2023 Housing Stability Vital Sign Answer José Miguel e Recorded In the last 12 months, was t here a time when you were not able to pay the mortgage or rent on time? No 03/04/2023 In the last 12 months, how many places have you lived? 1 03/04/2023 In the last 12 months, was t here a time when you did not have a steady place to sleep or slept in a long term (including now)? No 03/04/2023 Childcare Answer Date Recorded Do you feel overwhelmed with taking care of a child, family member or friend? No 04/20/2024 Does your family need help f inding childcare? (Household - for ages 0-17 years) Not on file 04/20/2024 Clothing Answer Date Recorded Have you been unable to get clothing when it was really needed? No 04/20/2024 Is your family able to get c lothes or diapers when needed? (Household - for ages 0-17 years) Not on file 04/20/2024 Personal Safety Answer Date Recorded Do you feel unsafe or have concerns for your saf ety? No 04/20/2024 Do you have concerns for you r family's safety? (Household - for ages 0-17 years) Not on file 04/20/2024 Utilities Answer Date Recorded Do you have trouble paying y our heating, water, or electric bill? No 04/20/2024 Is your family able to pay t he heat, water, or electric bill? (Household - for ages 0-17 years) Not on file 04/20/2024 Does your family have access to good internet? (Household - for ages 0-17 years) Not on file 04/20/2024 Employment Status Answer Date Recorded Are you unemployed or without regular income? No 04/20/2024 Does the household have a re gular source of income? (Household - for ages 0-17 years) Not on file 04/20/2024 Social Connections Answer Date Recorded How often do you feel lonely or isolated from th ose around you? Never 04/20/2024 Financial Resource Strain Answer Date R ecorded Do you have any trouble payi ng for your medications, or do you think you might in the future? No 04/20/2024 Does your family have troubl e paying for medicine? (Household - for ages 0-17 years) Not on file 04/20/2024 Transportation Needs Answer Date Record ed READ ONLY Do you have troubl e getting a ride to medical visits or work? Never True 04/20/2024 Does your family have a hard time getting a ride to doctors visits? (Household - for ages 0-17 years) Not on file 04/20/2024 Has lack of transportation k ept you from medical appointments, meetings, work, or from getting things needed for daily living? Check all that apply. No 04/20/2024 Do you (or your family) have trouble finding or paying for a ride (transportation)? (Household - for ages 0-17 years) Not on file 04/20/2024 Housing Stability Answer Date Recorded Do you currently live in a s helter or have no steady place to sleep at night? No 04/20/2024 READ ONLY Do you think you a re at risk of becoming homeless? No 04/20/2024 Does your family worry about paying for your home or becoming homeless? (Household - for ages 0-17 years) Not on file 0 04/20/2024 Are you homeless or worried that you might be in the future? No 04/20/2024 Are you (or your family) shahla eless or worried that you might be in the future? (Household - for ages 0-17 years) Not on file Food Insecurity Answer Date Recorded Do you need food for this week? No 04/20/2024 Are you able to get enough f ood for your family? (Household - for ages 0-17 years) Not on file 04/20/2024 Does your family need food t his week? (Household - for ages 0-17 years) Not on file 04/20/2024 Do you always have enough fo od for your family? (Household - for ages 0-17 years) Not on file 04/20/2024 Sex and Gender Information Value Date Recorded Sex Assigned at Not on file Legal Sex Male 5:15 AM EST Gender Identity Not on file Sexual Orientation Not on file Occupation Industry Job Start Date Job End Date unemployed Not on file Not on file Not on file documented as of this encounter Plan of Treatment Upcoming Encounters Date Type Department Care Team (Late st Contact Info) Description 05/17/2024 1:00 PM EST Office Visit Hepatology, [facility] [address] [facility] [place] [id number] Sujata Gordon MD [address] [place] [id number] 11/18/2024 12:45 PM EDT Office Visit Ophthalmology, [facility] [address] [facility] [place] [phone] Burak Cervantes DO [address] [facility] [place] [address] Michelle Nurse Ophthalmology [address] [facility] [place] [address] Michelle Cloth Burler [address] [facility] [place] [id number] Health Maintenance Due Date Last Done Comments GFR 1980 Lipid Panel 1980 HbA1c 1986 Depression Screening 1992 HIV Screening 1995 Albumin/Creatinine Ratio 1998 Diabetic Foot Exam 1998 Hepatitis C Screening 1998 DTap/Tdap Vaccines (1 - Tdap) 1999 Hepatitis B Vaccine (1 of 3 - 19+ 3-dose series) 1999 Pneumococcal Vaccine: Pediatrics (0 to 5 Years) and At-Risk Patients (6 to 18 Years and 19+ Years) (1 of 2 - PCV) 1999 COVID-19 Vaccine ( - season) 2023 Influenza Vaccine (FLU shot) (#1) 2023 Diabetic Eye Exam 02/22/2025 02/23/2024, , 11/19/2023, Additional history exists HPV (Gardasil) Vaccine Aged Out No lo nger eligible based on patient's age to complete this topic MENINGOCOCCAL (MENACTRA/MENVEO) Aged Out No longer eligible based on patient's age to complete this topic documented as of this encounter Medical Devices Not on filedocumented as of this encounter Care Teams Lens Grinding Machine Operator Relationship Specialty Start Date End Date Jignesh Kingston DO [address] [place] [address] [place] [address] PCP - General Family Medicine 11/25/22 documented as of this encounter
--- OUTSIDE RECORDS SUMMARY | 2024-05-23 20:59 | External Medical Summary | Summary of Care ---
Author Name Unknown Organization [facility] Address [address] [facility] [place] [address] Phone [phone] Care Team Providers Care Sandblaster Stone Name Role Phone Jignesh Kingston DO Primary Care Provider + Reason for Visit * Reason Comments NEW PATIENT New pt ref by Zainab TRACY for jaundice. Encounter Details Date Type Department Care Team (Late st Contact Info) Description 05/17/2024 1:00 PM EST Office Visit Hepatology, [facility] [address] [facility] [place] [address] Sujata Gordon MD [address] [facility] [place] [address] Jaundice* Allergies Active Allergy Reactions Criticality Noted Date Comments Mirtazapine 01/22/2022 Other Reaction(s): Fatigued documented as of this encounter (statuses as of 05/17/2024) Medications OneTouch Verio In Vitro Strip USE TO TEST BLOOD SUGAR 7 8 TIMES DAILY 12/29/19 20 Active Lantus 100 UNIT/ML Subcutaneous Solution 12 Units at bedtime. 12/27/19 20 Active ReliOn Insulin Syringe 31G X 5/16" 0.5 ML USE FOUR PER DAY WITH INSULIN 01/20/20 20 Active GlucaGen HypoKit 1 MG Injection Solution Reconstituted NEEDED FOR HYPOGLYCEMIA 12/27/19 20 Active traZODone HCl 50 MG Oral Tablet (Desyrel) Take 1 Tablet by mouth at bedtime. Take 1-2 tabs at bedtime Active Insulin Aspart 100 UNIT/ML Subcutaneous Solution Pen-injector (novoLOG) Inject 0-10 Units under the skin 4 times a day before meals and at bedtime. 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 Never 03/04/2023 Do you belong to any clubs o r organizations such as sikh groups, unions, fraternal or athletic groups, or [...] and heating? Not hard at all 03/04/2023 [facility] - Occupational Stress Questionnaire Answer Date Recorded [...] place to sleep or slept in a [place] facility (including now)? No 03/04/2023 Childcare Answer Date [...] ages 0-17 years) Not on file 04/20/2024 Food Insecurity Answer Date Recorded Within the past 12 months, y ou worried that your food would run out before you got the money to buy more. Never true 04/20/19 25 Within the past 12 months, t he food you bought just didn't last and you didn't have money to get more. Never true 04/20/2024 Do you need food for this week? No 04/20/2024 Sex and Gender Information Value Date Recorded Sex Assigned at Not on file Legal Sex Male 5:15 AM EST Gender Identity Not on file Sexual Orientation Not on file Occupation Industry Job Start Date Job End Date unemployed Not on file Not on file Not on file documented as of this encounter Last Filed Vital Signs Vital Sign Reading Time Taken Comments Blood Pressure 126/82 05/17/2024 12:47 PM EST Pulse - - Temperature 36.8 C (98.2 F) 05/17/2024 12:[address] Respiratory Rate - - Oxygen Saturation - - Inhaled Oxygen Concentration - - Weight 55.1 kg (121 lb 8 oz) 05/17/2024 12:47 PM EST Height - - Body Mass Index - - documented in this encounter Progress Notes * Sujata Gordon MD - 05/17/2024 12:56 PM EST Hepatology [facility] CC: jaundice Referred by Zainab Mahmood - works with [employer] HPI: 44 male referred for jaundice. No records and no available labs. He is not yellow today. He reports no evidence of scleral icterus or yellowing to his skin prior within the last year or years prior that he recalls. No family history of liver problems. He does not recall ever having jaundice even as a child. No belly pain, no nausea, vomiting, diarrhea, no weight loss. No family hx of colon cancer. Not known to have fatty liver. No exposure to iv drugs, new partners, no tattoos. No reports of colicky abdominal pain. Pmhx: Type 1 dm Pshx: none Medications as below All: Mirtazapine Soc hx: Smokes 1 ppd- vapes No ethanol Lives with his two boys () - his Not working Fam hx: None reported Past Medical History: Diagnosis Date Type 1 diabetes mellitus (HCC) Current Outpatient Medications Medication Sig Dispense Refill Atorvastatin Calcium 10 MG Oral Tablet (Lipitor) Take 1 Tablet by mouth in the morning. Dexcom G6 Sensor CHANGE EVERY 10 DAYS Dexcom G6 Transmitter OneTouch Verio In Vitro Strip USE TO TEST BLOOD SUGAR 7 8 TIMES DAILY Lantus 100 UNIT/ML Subcutaneous Solution 12 Units at bedtime. (Patient not taking: Reported on 05/17/2024) ReliOn Insulin Syringe 31G X 5/16" 0.5 ML USE FOUR PER DAY WITH INSULIN GlucaGen HypoKit 1 MG Injection Solution Reconstituted NEEDED FOR HYPOGLYCEMIA traZODone HCl 50 MG Oral Tablet (Desyrel) Take 1 Tablet by mouth at bedtime. Take 1-2 tabs at bedtime (Patient not taking: Reported on 03/04/2023) Insulin Aspart 100 UNIT/ML Subcutaneous Solution Pen-injector (novoLOG) Inject 0-10 Units under theskin 4 times a day before meals and at bedtime. Sliding scale based on glucose (Patient not taking:Reported on 05/17/2024) Vitamin D3 1.25 MG (02059 UT) Oral Capsule TAKE 1 CAPSULE BY MOUTH ONCE A WEEK FOR 14 WEEKS (Patient not taking: Reported on 11/19/2023) Nicotine 14 MG/24HR Transdermal Patch 24 Hour (Nicoderm CQ) APPLY 1 PATCH TOPICALLY ONCE DAILY (Patient not taking: Reported on 03/04/2023) Baqsimi One Pack 3 MG/DOSE Nasal Powder USE 3MG INTRANASALLY ONCE . No current facility-administered medications for this visit. Review of patient's allergies indicates: Allergen Reactions Mirtazapine Other Reaction(s): Fatigued Social History Socioeconomic History Marital status: Single Spouse name: Not on file Number of children: Not on file Years of education: Not on file Highest education level: Not on file Occupational History Occupation: unemployed Tobacco Use Smoking status: Every Day Types: Cigarettes Smokeless tobacco: Never Tobacco comments: trying to quit Vaping Use Vaping status: Some Days Substances: Nicotine Substance and Sexual Activity Alcohol use: Never Drug use: Never Sexual activity: Not on file Other Topics Concern Not on file Social History Narrative Not on file Social Needs Financial Resource Strain: Low Risk (04/20/2024) Financial Resource Strain Do you have any trouble paying for your medications, or do you think you might in the future? (Adult - for ages 18 years and over): No Does your family have trouble paying for medicine? (Household - for ages 0-17 years): Not on file Food Insecurity: No Food Insecurity (04/20/2024) Food Insecurity Worried About Running Out of Food in the Last Year: Never true Ran Out of Food in the Last Year: Never true Do you need food for this week? (Adult - for ages 18 years and over): No Transportation Needs: No Transportation Needs (04/20/2024) Transportation Needs Do you have trouble getting a ride to medical visits or work? (Adult - for ages 18 years and over):Never True Does your family have a hard time getting a ride to doctors visits? (Household - for ages 0-17 years): Not on file Has lack of transportation kept you from medical appointments, meetings, work, or from getting things needed for daily living? Check all that apply. (Adult - for ages 18 years and over): No Do you (or your family) have trouble finding or paying for a ride (transportation)? (Household - for ages 0-17 years): Not on file Social Connections: Socially Integrated (04/20/2024) Social Connections How often do you feel lonely or isolated from those around you? (Adult - for ages 18 years and over): Never Housing Stability: Low Risk (04/20/2024) Housing Stability Do you currently live in a [place] or have no steady place to sleep at night? (Adult - for ages 18 years and over): No Do you think you are at risk of becoming homeless? (Adult - for ages 18 years and over): No Does your family worry about paying for your home or becoming homeless? (Household - for ages 0-17 years): Not on file Are you homeless or worried that you might be in the future? (Adult - for ages 18 years and over): No Are you (or your family) homeless or worried that you might be in the future? (Household - for ages0-17 years): Not on file Family History Problem Relation Name Age of Onset Thyroid Disorder Mother Diabetes Sister ROS: Constitutional: No report of fever, chills, night sweats. There have been no non-intentional weightchanges. Eyes: No recent changes in visual acuity or blurring of vision. ENT: No change in auditory acuity, sense of smell or taste. CV: No chest pain, palpitations, dyspnea on exertion. Respiratory: No wheezing, cough, sputum production. : No dysuria, polyuria, change in urinary frequency. GI: Per HPI, otherwise negative. Psychiatric: No chronic changes in mood, affect or sensorium. Musculoskeletal: No myalgias, arthralgias, or joint pains. Neurological: No change in gait, change in maintenance of balance, neurologic injuries. Physical Exam Constitutional: BP 126/82 | Temp 36.8 C (98.2 F) | Wt 55.1 kg (121 lb 8 oz) Well developed, well nourished male in no apparent distress. Eyes: Conjunctivae and sclerae are clear and non-icteric. Pupils are equally round and reactive to light, extra-ocular movements intact. ENT: Nares are patent and without discharge. Oropharynx is clear and without erythema or exudates. Buccal mucosa is moist. Neck: Supple; there is no adenopathy. No supraclavicular adenopathy is noted. CV: Heart is regular without murmur, rub or gunnar. Pulm: Clear to percussion and auscultation. GI: Abdomen is soft, non-tender, with normo-active bowel sounds in all four quadrants. Psychiatric: The patient is alert and oriented in all four spheres. Mood is euthymic. Affect is appropriate for the situation. Skin: No rashes were noted. Musculoskeletal: Gait is normal. Patient is able to transfer from sitting position to exam table without assistance. No labs available for review A/P: ? Jaundice- he is not jaundiced currently nor does he reports a history of that No labs to suggest an elevated bilirubin Not clear exactly what this referral was for He seems asymptomatic He is approaching the age to get a colon cancer screening and this was recommended at the age of 45as he reports he is not aware of parents or siblings having a diagnosis of colon cancer or polyps We spoke of what jaundice is - yellowing to eyes and skin - causes for it can be biliary obstruction, gilbert's syndrome. Ordered a hepatic function panel and fractionation of bilirubin in addition an acute hepatitis panel If gilbert's is confirmed (higher indirect bilirubin)- this I a benign condition, no further work-up needed. If reports of recurrent elevated lft's and or reports of true jaundice, consider an abd zeynep to evaluate cbd and gallbaldder. No reported history of liver problems or history to suggest chronic liver disease. Fup prn Sujata Gordon MD documented in this encounter Nursing Notes * Phoebe Lucio CMA - 05/17/2024 12:46 PM EST Chief Complaint Patient presents with NEW PATIENT New pt ref by Zainab TRACY for jaundice. documented in this encounter Plan of Treatment Upcoming Encounters Date Type Department Care Team (Late st Contact Info) Description 11/18/2024 12:45 PM EDT Office Visit Ophthalmology, [facility] [address] [facility] [place] [phone] Burak Cervantes, DO [address] [facility] [place] [address] Michelle Nurse Ophthalmology [address] [facility] [place] [address] Michelle Shift Supervisor [place] [address] [place] [address] Scheduled Orders Name Type Priority Associated Diagnoses Orde r Schedule HEPATIC FUNCTION PANEL Lab Routine Jaundice Expected: 05/17/2024, Expires: 05/17/2025 BILIRUBIN, TOTAL Lab Routine Jaundice Expected: 05/17/2024, Expires: 05/17/2025 BILIRUBIN, DIRECT Lab Routine Jaundice Expected: 05/17/2024, Expires: 05/17/2025 ACUTE HEPATITIS PANEL Lab Routine Jaundice Expected: 05/17/2024, Expires: 05/17/2025 Health Maintenance Due Date Last Done Comments [...] of 2 - PCV) 1999 COVID-19 Vaccine (1 - season) 2023 Influenza Vaccine (FLU shot) [...] Not on filedocumented as of this encounter Visit Diagnoses Diagnosis Jaundice- Primary Jaundice, unspecified, not of documented in this encounter Care Teams Sandblaster Stone Relationship Specialty Start Date End Date Jignesh Kingston DO [address] [place] [address] [place] [address] PCP - General Family Medicine 11/25/22 documented as of this encounter
--- OUTSIDE RECORDS SUMMARY | 2024-05-23 20:59 | External Medical Summary ---
Author Name Unknown Address Unknown Organization R4H:[facility] [address] [place] [address] Laboratory Report Ordering Provider Test Date Status APRIL AIKEN 05/22/2024 13:49:00 Final Observation Date Value Abnormality Reference (Units ) Status Glucose 05/22/2024 14:29 146 Above high normal 70-99 (mg/dL) Final BUN 05/22/2024 14:29 13 7-18 (mg/dL) Final Creatinine 05/22/2024 14:29 1.07 0.60-1.30 (m g/dL) Final eGFR 05/22/2024 14:29 88 >59 (mL/min/1 .73m2) Final eGFR = 142 X [min(Scr/k,1)]* *a [max(Scr/k,1)-1.200x0.9938age X 1.012 [if female] Where Scr is serum creatinine; k is 0.7 for females and 0.9 males; a is -0.241 for females and -0.302 for males; min indicates the minimum of Scr/k or 1, max indicates the maximum of Scr/k or 1 Sodium 05/22/2024 14:29 138 136-145 (mmol /L) Final Potassium 05/22/2024 14:29 3.8 3.6-5.0 (mmol /L) Final Chloride 05/22/2024 14:29 96 Below low normal 101-11 1 (mmol/L) Final CO2 05/22/2024 14:29 24 21-31 (mmol/L ) Final Anion Gap 05/22/2024 14:29 22 Above high normal 6-16 (mmol/L) Final Calcium 05/22/2024 14:29 9.6 8.4-10.5 (mg/ dL) Final Total Protein 05/22/2024 14:29 7.2 6.0-8.3 ( g/dL) Final Albumin 05/22/2024 14:29 3.7 3.2-5.5 (g/dL ) Final Bilirubin, Total 05/22/2024 14:29 1.1 Above high saundra l 0.2-1.0 (mg/dL) Final AST 05/22/2024 14:29 39 10-42 (U/L) F inal ALT 05/22/2024 14:29 24 10-60 (U/L) F inal Alkaline Phosphatase 05/22/2024 14:29 72 42 -121 (U/L) Final Performing Location [facility] [address] [place] [address]
--- OUTSIDE RECORDS SUMMARY | 2024-05-23 20:59 | External Medical Summary ---
Author Name Unknown Address Unknown Organization R4LH:[facility] [address] [place] [address] Laboratory Report Ordering Provider Test Date Status APRIL AIKEN 05/22/2024 13:49:00 Final Observation Date Value Abnormality Reference (Units ) Status Lactic Acid 05/22/2024 14:36 4.3 Above upper panic pérez its 0.4-2.0 (mmol/L) Final CRITICAL VALUE CALLED / READ BACK BY: RAMONE Corbett RN ER [id number] MARTIN Performing Location [facility] [address] [place] [address]
--- OUTSIDE RECORDS SUMMARY | 2024-05-23 20:59 | External Medical Summary ---
Author Name Unknown Address Unknown Organization R4:[facility] [address] [place] [address] Laboratory Report Ordering Provider Test Date Status APRIL AIKEN 05/22/2024 13:49:00 Final Observation Date Value Abnormality Reference (Units ) Status WBC 05/22/2024 14:13 13.2 Above high normal 4.0-9 .1 (X10E+09/L) Final RBC 05/22/2024 14:13 4.83 4.6-6.1 (X10E +12/L) Final Hemoglobin 05/22/2024 14:13 14.2 13.4-17.5 (g /dL) Final Hematocrit 05/22/2024 14:13 42.8 40.0-51.0 (% ) Final MCV 05/22/2024 14:13 88.7 79-92 (fL) Fi nal MCH 05/22/2024 14:13 29.5 26.0-32.0 (pg ) Final MCHC 05/22/2024 14:13 33.2 32-37 (g/dL) Final Platelets 05/22/2024 14:13 560 Above high normal 150-3 30 (X10E+09/L) Final PERIPHERAL SMEAR REVIEWED gi ant platelets seen on smear increased platelets RDW 05/22/2024 14:13 15.0 Above high normal 11.6-14.4 (%) Final Neutrophils 05/22/2024 14:13 85.8 Above high normal 34.0-67.9 (%) Final Lymphocytes 05/22/2024 14:13 10.1 Below low normal 21.8 -53.1 (%) Final Monocytes 05/22/2024 14:13 3.6 Below low normal 5.3-12 .2 (%) Final Eosinophils 05/22/2024 14:13 0.2 Below low normal 0.8- 7.0 (%) Final Basophils 05/22/2024 14:13 0.3 0.1-1.2 (%) F inal Absolute Neutrophils 05/22/2024 14:13 11.30 Abo ve high normal 1.6-6.1 (X10E+09/L) Final Absolute Lymphocytes 05/22/2024 14:13 1.30 1.3-3.6 (X10e+03/uL) Final Absolute Monocytes 05/22/2024 14:13 0.50 0.3- 0.8 (X10E+09/L) Final Absolute Eosinophils 05/22/2024 14:13 0.00 0.00-0.50 (X10E+09/L) Final Absolute Basophils 05/22/2024 14:13 0.00 0.00-0.10 (X10E+09/L) Final Performing Location [facility] [address] [place] [address] [address]
--- OUTSIDE RECORDS SUMMARY | 2024-05-23 20:59 | External Medical Summary ---
Author Name Unknown Address Unknown Organization R4LH:[facility] [address] [place] [address] Laboratory Report Ordering Provider Test Date Status DAVID MARIOCEAPRIL 05/22/2024 13:49:00 Final Observation Date Value Abnormality Reference (Units ) Status aPTT 05/22/2024 14:24 29.1 22.6-34.3 (SE C) Final Performing Location [facility] [address] [place] [address]
--- OUTSIDE RECORDS SUMMARY | 2024-05-23 20:59 | External Medical Summary | Summary of Care ---
Author Name Unknown Organization [facility] Address [address] [place] [address] Phone [phone] Care Team Providers Care Administrative Services Assistant Name Role Phone Thee Jignesh Jose PUTNAM Primary Care Provider + Reason for Visit * Reason Onset Date Comments Test Results Imaging Study 05/18/2024 Encounter Details Date Type Department Care Team ([facility] st Contact Info) Description 05/18/2024 Telephone [facility] [address] [place] [address] James Berger PA-C [address] [place] [address] Test Results Imaging Study Allergies Active Allergy Reactions Criticality Noted Date Comments Mirtazapine 01/22/2022 Other Reaction(s): Fatigued documented as of this encounter (statuses as of 05/18/2024) Medications OneTouch Verio In Vitro Strip USE TO TEST BLOOD SUGAR 7 8 TIMES DAILY 0 Active Insulin Aspart 100 UNIT/ML Subcutaneous Solution Pen-injector (novoLOG) Inject 0-10 Units under the skin 4 times a day before meals and at bedtime. Sliding scale based on glucose Active Vitamin D3 1.25 MG (68765 UT) Oral Capsule 2 Active Atorvastatin Calcium 10 MG Oral Tablet (Lipitor) Take 1 Tablet by mouth in the morning. Active Dexcom G6 Sensor CHANGE EVERY 10 DAYS 4 Active Dexcom G6 Transmitter 4 Active Baqsimi One Pack 3 MG/DOSE Nasal Powder USE 3MG INTRANASALLY ONCE . 4 Active Lisinopril 2.5 MG Oral Tablet (Prinivil) Take 1 Tablet by mouth in the morning. 4 Active Amoxicillin-Pot Clavulanate 875-125 MG Oral Tablet (Augmentin)Indic ations:Acute non-recurrent frontal sinusitis Take 1 Tablet by mouth in the morning and 1 Tablet before bedtime. Do all this for 10 days. 20 Tablet 5 025 Active Proventil HFA 108 (90 Base) MCG/ACT Inhalation Aerosol SolutionIndicati ons:LRTI (lower respiratory tract infection) Inhale 2 Puffs by mouth 4 times a day as needed for Shortness of Breath or Wheezing. 6.7 g 5 Active Promethazine-DM 6.25-15 MG/5ML Oral SyrupIndications :LRTI (lower respiratory tract infection) Take 5 mL by mouth 4 times a day as needed for Cough. 120 mL 1 5 Active predniSONE 20 MG Oral Tablet (Deltasone)Indic ations:LRTI (lower respiratory tract infection) Take 1 Tablet by mouth in the morning for 5 days. 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 Never 03/04/2023 Do you belong to any clubs o r organizations such as pentecostal groups, unions, fraternal or athletic groups, or [...] and heating? Not hard at all 03/04/2023 [facility] of Occupat ional Health - Occupational Stress [...] the money to buy more. Never true 05/18/19 25 Within the past 12 months, t he food you bought just didn't last and you didn't have money to get more. Never true 05/18/2024 PRAPARE - Transportation Answer Date Re corded [...] place to sleep or slept in a jail (including now)? No 03/04/2023 Childcare Answer Date Recorded Do you feel overwhelmed with taking care of a child, family member or friend? No 05/18/2024 Does your family need help f inding childcare? (Household - for ages 0-17 years) Not on file 05/18/2024 Clothing Answer Date Recorded Have you been unable to get clothing when it was really needed? No 05/18/2024 Is your family able to get c lothes or diapers when needed? (Household - for ages 0-17 years) Not on file 05/18/2024 Personal Safety Answer Date Recorded Do you feel unsafe or have concerns for your saf ety? No 05/18/2024 Do you have concerns for you r family's safety? (Household - for ages 0-17 years) Not on file 05/18/2024 Utilities Answer Date Recorded Do you have trouble paying y our heating, water, or electric bill? No 05/18/2024 Is your family able to pay t he heat, water, or electric bill? (Household - for ages 0-17 years) Not on file 05/18/2024 Does your family have access to good internet? (Household - for ages 0-17 years) Not on file 05/18/2024 Employment Status Answer Date Recorded Are you unemployed or without regular income? No 05/18/2024 Does the household have a re gular source of income? (Household - for ages 0-17 years) Not on file 05/18/2024 Social Connections Answer Date Recorded How often do you feel lonely or isolated from th ose around you? Never 05/18/2024 Financial Resource Strain Answer Date R ecorded Do you have any trouble payi ng for your medications, or do you think you might in the future? No 05/18/2024 Does your family have troubl e paying for medicine? (Household - for ages 0-17 years) Not on file 05/18/2024 Transportation Needs Answer Date Record ed READ ONLY Do you have troubl e getting a ride to medical visits or work? Never True 05/18/2024 Does your family have a hard time getting a ride to doctors visits? (Household - for ages 0-17 years) Not on file 05/18/2024 Has lack of transportation k ept you from medical appointments, meetings, work, or from getting things needed for daily living? Check all that apply. No 05/18/2024 Do you (or your family) have trouble finding or paying for a ride (transportation)? (Household - for ages 0-17 years) Not on file 05/18/2024 Housing Stability Answer Date Recorded Do you currently live in a s helter or have no steady place to sleep at night? No 05/18/2024 READ ONLY Do you think you a re at risk of becoming homeless? No 05/18/2024 Does your family worry about paying for your home or becoming homeless? (Household - for ages 0-17 years) Not on file 0 05/18/2024 Are you homeless or worried that you might be in the future? No 05/18/2024 Are you (or your family) shahla eless [...] the money to buy more. Never true 05/18/19 25 Within the past 12 months, t he food you bought just didn't last and you didn't have money to get more. Never true 05/18/2024 Do you need food for this week? No 05/18/2024 Sex and Gender Information Value Date Recorded Sex Assigned at Not on file Legal Sex Male 5:15 AM EST Gender Identity Not on file Sexual Orientation Not on file Occupation Industry Job Start Date Job End Date unemployed Not on file Not on file Not on file documented as of this encounter Miscellaneous Notes * Telephone Encounter - Cele Schmitt LPN - 05/18/2024 12:51 PM EST I spoke with patient as per phone call and relayed James's message/plan of care. He verbalized understanding and agreed with plan of care. He voiced no questions/concerns at this time. * Telephone Encounter - James Berger PA-C - 05/18/2024 12:02 PM EST Chest XR concern for possible infection. Will send in zpack. Continue with both antibiotics. Radiologist recommending followup with CT scan for further determination given findings. Please speak to your primary care provider soon for further evaluation. documented in this encounter Plan of Treatment Upcoming Encounters Date Type Department Care Team (Late st Contact Info) Description 11/18/2024 12:45 PM EDT Office Visit Ophthalmology, [facility] [address] [place] [phone] Burak Cervantes DO [address] [facility] [place] [address] Michelle Nurse Ophthalmology [address] [facility] [place] [phone] Michelle Experience Planning Strategist [address] [facility] [place] [address] Health Maintenance Due Date Last Done Comments [...] filedocumented as of this encounter Care Teams Administrative Services Assistant Relationship Specialty Start Date End Date Jignesh Kingston DO [address] [place], [place] [address] [address] PCP - General Family Medicine 11/25/22 documented as of this encounter
--- OUTSIDE RECORDS SUMMARY | 2024-05-23 20:59 | External Medical Summary | Summary of Care ---
Author Name Unknown Organization [facility] Address [address] [place] [address] Phone [phone] Care Team Providers Care Flanging Machine Operator Name Role Phone Jignesh Kingston DO Primary Care Provider + Encounter Details Date Type Department Care Team (Late st Contact Info) Description 05/20/2024 Orders Only PATIENT PORTAL DO NOT DELETE THIS DEPT USED BY [place] [id number] Allergies Active Allergy Reactions Criticality Noted Date Comments Mirtazapine 01/22/2022 Other Reaction(s): Fatigued documented as of this encounter (statuses as of 05/20/2024) Medications OneTouch Verio In Vitro Strip USE TO TEST BLOOD SUGAR 7 8 TIMES DAILY 0 Active Insulin Aspart 100 UNIT/ML Subcutaneous Solution Pen-injector (novoLOG) Inject 0-10 Units under the skin 4 times a day before meals and at bedtime. 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 Never 03/04/2023 Do you belong to any clubs o r organizations such as christianity groups, unions, fraternal or athletic groups, or [...] and heating? Not hard at all 03/04/2023 [facility] of Occupat ional Health - Occupational [...] place to sleep or slept in a chcf (including now)? No 03/04/2023 Childcare Answer Date [...] 11/18/2024 12:45 PM EDT Office Visit Ophthalmology, [facility] [address] [facility] [place] [phone] Burak Cervantes, DO [address] [facility] [place] [address] Michelle Nurse Ophthalmology [address] [place] [address] Michelle Blood Bank Laboratory Professional [address] [place] [address] Health Maintenance Due Date Last Done Comments [...] filedocumented as of this encounter Care Teams Flanging Machine Operator Relationship Specialty Start Date End Date Jignesh Kingston DO [address] [place] [address] [place] [address] PCP - General Family Medicine 11/25/22 documented as of this encounter
--- OUTSIDE RECORDS SUMMARY | 2024-05-23 20:59 | External Medical Summary | Summary of Care ---
Author Name Unknown Organization [facility] Address [address] [place] [address] Phone [phone] Care Team Providers Care Lighting Engineer Name Role Phone Jignesh Kingston DO Primary Care Provider + Reason for Visit * Reason Comments Cold Symptoms Encounter Details Date Type Department Care Team (Latest Contact Info) Description 05/18/2024 9:50 AM EST [facility]venient Care Visit [facility] [address] [place] [address] James Berger PA-C [address] [place] [address] Acute non-recurrent frontal sinusitis*; LRTI (lower respiratory tract infection) Allergies Active Allergy Reactions Criticality Noted Date Comments Mirtazapine 01/22/2022 Other Reaction(s): Fatigued documented as of this encounter (statuses as of 05/18/2024) Medications OneTouch Verio In Vitro Strip USE TO TEST BLOOD SUGAR 7 8 TIMES DAILY 12/29/19 20 Active Insulin Aspart 100 UNIT/ML Subcutaneous Solution Pen-injector (novoLOG) Inject 0-10 Units under the skin 4 times a day before meals and at bedtime. Sliding scale based on glucose Active Vitamin D3 1.25 MG (64498 UT) Oral Capsule 10/05/19 22 Active Atorvastatin Calcium 10 MG Oral Tablet (Lipitor) Take 1 Tablet by mouth in the morning. Active Dexcom G6 Sensor CHANGE EVERY 10 DAYS 09/11/19 24 Active Dexcom G6 Transmitter 10/02/19 24 Active Baqsimi One Pack 3 MG/DOSE Nasal Powder USE 3MG INTRANASALLY ONCE . 10/21/19 24 Active Lisinopril 2.5 MG Oral Tablet (Prinivil) Take 1 Tablet by mouth in the morning. 02/18/20 24 Active Amoxicillin-Pot Clavulanate 875-125 MG Oral Tablet (Augmentin)Indica tions:Acute non-recurrent frontal sinusitis Take 1 Tablet by mouth in the morning and 1 Tablet before bedtime. Do all this for 10 days. 20 Tablet 05/18/19 25 025 Active Proventil HFA 108 (90 Base) MCG/ACT Inhalation Aerosol SolutionIndicatio ns:LRTI (lower respiratory tract infection) Inhale 2 Puffs by mouth 4 times a day as needed for Shortness of Breath or Wheezing. 6.7 g 05/18/19 25 Active Promethazine-DM 6.25-15 MG/5ML Oral SyrupIndications: LRTI (lower respiratory tract infection) Take 5 mL by mouth 4 times a day as needed for Cough. 120 mL 1 05/18/19 25 Active predniSONE 20 MG Oral Tablet (Deltasone)Indica tions:LRTI (lower respiratory tract infection) Take 1 Tablet by mouth in the morning for 5 days. 5 Tablet 05/18/19 25 025 Active Lantus 100 UNIT/ML Subcutaneous Solution 12 Units at bedtime. 12/27/19 025 Discontin ued(Patie nt preferenc e/discont inuation) ReliOn Insulin Syringe 31G X 5/16" 0.5 ML USE FOUR PER DAY WITH INSULIN 01/20/20 025 Discontin ued(Patie nt preferenc e/discont inuation) GlucaGen HypoKit 1 MG Injection Solution Reconstituted NEEDED FOR HYPOGLYCEMIA 12/27/19 025 Discontin ued(Patie nt preferenc e/discont inuation) traZODone HCl 50 MG Oral Tablet (Desyrel) Take 1 Tablet by mouth at bedtime. Take 1-2 tabs at bedtime 025 Discontin ued(Patie nt preferenc e/discont inuation) Nicotine 14 MG/24HR Transdermal Patch 24 Hour (Nicoderm CQ) APPLY 1 PATCH TOPICALLY ONCE DAILY 10/06/19 025 Discontin ued(Patie nt preferenc e/discont inuation) documented as of this encounter (statuses as [...] Tobacco: Every Day Vaporizer Smokeless Tobacco: Never Tobacco Cessation:Ready to Q uit: No; Counseling Given: No Comments:Former cigarette smoker Alcohol Use Standard Drinks/Week Comments Never 0 [...] week 03/04/2023 How often do you attend pentecostalism or adventist serv ices? Never 03/04/2023 Do you belong to any clubs o r organizations such as pentecostalism groups, unions, fraternal or athletic groups, or [...] and heating? Not hard at all 03/04/2023 [facility] - Occupational Stress [...] place to sleep or slept in a retirement (including now)? No 03/04/2023 Childcare Answer Date [...] No 05/18/2024 Does the household have a [facility] source [facility] income? (Household - for ages [...] Sign Reading Time Taken Comments Blood Pressure 146/94 05/18/2024 9:44 AM EST Pulse 108 05/18/2024 9:44 AM EST Temperature 37.1 C (98.8 F) 05/18/2024 9:44 AM ES T Respiratory Rate 20 05/18/2024 9:44 AM EST Oxygen Saturation 96% 05/18/2024 9:44 AM EST Inhaled Oxygen Concentration - - Weight 55.3 kg (122 lb) 05/18/2024 9:44 AM EST w ith shoes Height - - Body Mass Index - - documented in this encounter Progress Notes * James Berger PA-C - 05/18/2024 9:55 AM EST [facility] Basic Exam Isreal Morelos is a 44 year old year old male who presents for evaluation of shortness of breath since a couple of days ago. Had the flu about 2.5 weeks ago and has not felt complete resolution of symptoms. Coughing as well. Having a runny and stuffy nose. Left ear is popping a lot. Feeling a bit short of breath even at rest. No wheezing. He reports most recent A1c 6.7. Review of Systems HENT: Positive for congestion, ear pain and rhinorrhea. PAST MEDICAL HISTORY: Past Medical History: Diagnosis Date Type 1 diabetes mellitus (HCC) Past Surgical History: Procedure Laterality Date MISCELLANEOUS ORDER ([facility] ONLY) ACT 112 signed, 01/27/2020 OTHER Laser surgery for [employer] Social History Tobacco Use Smoking status: Every Day Types: Vaporizer Smokeless tobacco: Never Tobacco comments: Former cigarette smoker Substance Use Topics Alcohol use: Never Vaping/E-Cigarette Use Vaping/E-Cigarette Use Current Some Day User Vaping/E-Cigarette Substances Nicotine Yes Vaping/E-Cigarette Devices Patient Active Problem List Diagnosis Proliferative diabetic retinopathy of both eyes with macular edema associated with type 1 diabetes mellitus (HCC) Review of patient's allergies indicates: Allergen Reactions Mirtazapine Other Reaction(s): Fatigued Current Outpatient Medications Medication Sig Dispense Refill OneTouch Verio In Vitro Strip USE TO TEST BLOOD SUGAR 7 8 TIMES DAILY GlucaGen HypoKit 1 MG Injection Solution Reconstituted NEEDED FOR HYPOGLYCEMIA Insulin Aspart 100 UNIT/ML Subcutaneous Solution Pen-injector (novoLOG) Inject 0-10 Units under theskin 4 times a day before meals and at bedtime. Sliding scale based on glucose Vitamin D3 1.25 MG (77700 UT) Oral Capsule Atorvastatin Calcium 10 MG Oral Tablet (Lipitor) Take 1 Tablet by mouth in the morning. Dexcom G6 Sensor CHANGE EVERY 10 DAYS Dexcom G6 Transmitter Baqsimi One Pack 3 MG/DOSE Nasal Powder USE 3MG INTRANASALLY ONCE . ReliOn Insulin Syringe 31G X 5/16" 0.5 ML USE FOUR PER DAY WITH INSULIN (Patient not taking: Reported on 05/18/2024) Nicotine 14 MG/24HR Transdermal Patch 24 Hour (Nicoderm CQ) APPLY 1 PATCH TOPICALLY ONCE DAILY (Patient not taking: Reported on 05/18/2024) Lisinopril 2.5 MG Oral Tablet (Prinivil) Take 1 Tablet by mouth in the morning. (Patient not taking: Reported on 05/18/2024) No current facility-administered medications for this visit. Nursing Notes and Vital Signs reviewed. BP 146/94 (BP Site: Left Arm, BP Position: Sitting, BP Cuff Size: Regular) Comment (BP Cuff Size): small adult long | Pulse 108 | Temp 37.1 C (98.8 F) | Resp 20 | Wt 55.3 kg (122 lb) Comment: with shoes | SpO2 96% Physical Exam Vitals and nursing note reviewed. Constitutional: Appearance: Normal appearance. HENT: Head: Normocephalic. Right Ear: Tympanic membrane normal. Left Ear: Tympanic membrane normal. Ears: Comments: Fluid noted behind bilateral TM Nose: Nose normal. Mouth/Throat: Mouth: Mucous membranes are moist. Pharynx: Oropharynx is clear. Eyes: Extraocular Movements: Extraocular movements intact. Conjunctiva/sclera: Conjunctivae normal. Cardiovascular: Rate and Rhythm: Normal rate and regular rhythm. Pulmonary: Effort: Pulmonary effort is normal. Breath sounds: Normal breath sounds. No stridor. No wheezing, rhonchi or rales. Comments: Decreased air movement throughout Musculoskeletal: General: Normal range of motion. Cervical back: Normal range of motion and neck supple. Skin: General: Skin is warm. Neurological: General: No focal deficit present. Mental Status: He is alert and oriented to person, place, and time. Psychiatric: Mood and Affect: Mood normal. ASSESSMENT: Acute non-recurrent frontal sinusitis (Primary) - Amoxicillin-Pot Clavulanate 875-125 MG Oral Tablet (Augmentin); Take 1 Tablet by mouth in the morning and 1 Tablet before bedtime. Do all this for 10 days. - XR CHEST 2 VIEWS LRTI (lower respiratory tract infection)-- bronchiolitis vs possible pna - predniSONE 20 MG Oral Tablet (Deltasone); Take 1 Tablet by mouth in the morning for 5 days. Discussed with patient this can increase his glucose and to monitor closely-- adjust insulin as needed - Proventil HFA 108 (90 Base) MCG/ACT Inhalation Aerosol Solution; Inhale 2 Puffs by mouth 4 times a day as needed for Shortness of Breath or Wheezing. - Promethazine-DM 6.25-15 MG/5ML Oral Syrup; Take 5 mL by mouth 4 times a day as needed for Cough. - XR CHEST 2 VIEWS-- formal radiology read pending, may need to add on zpack pending results Educated patient t go to ER with any concerning changes, including worsening shortness of breathing, lower oxygen saturations. Return or make appointment with PCP if no improvement within 3-5 days. James Berger PA-C [address] [address] * Cele Schmitt LPN - 05/18/2024 9:45 AM EST Patient spelled last name and verbalized birthdate to verify identity. Nursing Notes: CC: Chief Complaint Patient presents with Cold Symptoms Brief Hx: patient present for SOB even when sitting, dry cough this AM, body aches, weakness. He denies fever, wheezing. He reports he had suspected influenza about 2.5 weeks ago. Duration/Onset: 05/15/24 OTC meds: none Accompanied by: none No work excuse needed. documented in this encounter Plan of Treatment Upcoming Encounters Date Type Department Care Team (Late st Contact Info) Description 11/18/2024 12:45 PM EDT [facility] [address] [place] [id number] Burak Cervantes, DO [address] [facility] [place] [address] Michelle Nurse Ophthalmology [address] [place] [address] Michelle Wireless Team Member [address] [place] [address] Health Maintenance Due Date Last Done [...] Not on filedocumented as of this encounter Procedures Procedure Name Priority Date/Time Associated Diagnosis Comments XR CHEST 2 VIEWS STAT 05/18/2024 10:1 3 AM EST LRTI (lower respiratory tract infection) documented in this encounter Results * XR CHEST 2 VIEWS (05/18/2024 10:13 AM EST) Anatomical Region Laterality Modality Chest Digital Radiogra phy 05/18/2024 11:0 2 AM EST Impressions 05/18/2024 11:00 AM EST IMPRESSION 1. Significant increased interstitial markings in the mid to lower lung lal. Differential would include none cardiac pulmonary edema, and infection particularly atypical infection, lymphangitic spread of carcinomatosis if patient has underlying malignancy recommend chest CT for further evaluation. Narrative 05/18/2024 11:00 AM EST EXAM XR CHEST 2 VIEWS-05/18/2024 10:13 am HISTORY shortness of breath, cough COMPARISON No Comparison. TECHNIQUE PA and lateral films of the chest were obtained FINDINGS Cardiac silhouette is within normal limits for size. There is diffuse increased interstitial markings in the lung lal particularly in the mid to lower lung lal. Ezio B-lines are noted in the lung bases. There are no consolidations. There are no effusions. There is relative sparing of the upper lobes. Procedure Note Lisbet Hernandez MD - 05/18/2024 EXAM XR CHEST 2 VIEWS-05/18/2024 10:13 am HISTORY shortness of breath, cough COMPARISON No Comparison. TECHNIQUE PA and lateral films of the chest were obtained FINDINGS Cardiac silhouette is within normal limits for size. There is diffuseincreased interstitial markings in the lung lal particularly in the midto lower lung lal. Ezio B-lines are noted in the lung bases. Thereare no consolidations. There are no effusions. There is relative sparingof the upper lobes. IMPRESSION IMPRESSION 1. Significant increased interstitial markings in the mid to lower lungfields. Differential would include none cardiac pulmonary edema, andinfection particularly atypical infection, lymphangitic spread ofcarcinomatosis if patient has underlying malignancy recommend chest CT forfurther evaluation. James Berger PA-C RADIOLOGY (RAD GENER AL) Final Result documented in this encounter Visit Diagnoses Diagnosis Acute non-recurrent frontal sinusitis- Primary LRTI (lower respiratory tract infection) Other diseases of respiratory system, not elsewhere classified documented in this encounter Care Teams Lighting Engineer Relationship Specialty Start Date End Date Jignesh Kingston DO [address] [place] [address] [place] [address] PCP - General Family Medicine 11/25/22 documented as of this encounter
[2024-05-23] MEDS: lisinopril 2.5 MG TAB PO SCH (22:29)
[2024-05-23 23:20] LABS: Adenovirus PCR Not Detected (NotDetected); Bordetella parapertussis PCR Not Detected (NotDetected); Bordetella pertussis PCR Not Detected (NotDetected); Chlamydia pneumoniae PCR Not Detected (NotDetected); Coronavirus 229E PCR Not Detected (NotDetected); Coronavirus CoV-2 (COVID19)PCR Not Detected (NotDetected); Coronavirus HKU1 PCR Not Detected (NotDetected); Coronavirus NL63 PCR Not Detected (NotDetected); Coronavirus OC43PCR Not Detected (NotDetected); Human Metapneumovirus PCR Not Detected (NotDetected); Influenza A PCR Not Detected (NotDetected); Influenza B PCR Not Detected (NotDetected); Mycoplasma pneumoniae PCR Not Detected (NotDetected); Parainfluenza Virus 1 PCR Not Detected (NotDetected); Parainfluenza Virus 2 PCR Not Detected (NotDetected); Parainfluenza Virus 3 PCR Not Detected (NotDetected); Parainfluenza Virus 4 PCR Not Detected (NotDetected); Respiratory Syncytial VirusPCR Not Detected (NotDetected); Rhinovirus/Enterovirus PCR Not Detected (NotDetected)
[2024-05-24 00:16] LABS: ANTI-Xa, UFH(UnfractionatedHep 0.34 IU/ml (0.3-0.7)
[2024-05-24] MEDS: DEXTROSE 50% 50 ML SYRINGE IV PRN (06:27)
[2024-05-24 06:43] LABS: Basophils # (auto) 0.06 K/uL (0.00-0.20); Basophils % (auto) 0.5 %; Eosinophils # (auto) 0.09 K/uL (0.00-0.50); Eosinophils % (auto) 0.7 %; Hematocrit (blood only) 39.1 % (42.0-52.0); Immature Granulocytes # (auto) 0.04 K/uL (0.01-0.20); Immature Granulocytes % (auto) 0.3 %; Lymphocytes # (auto) 4.17 K/uL (1.20-3.40); Lymphocytes % (auto) 34.5 %; Mean Corpuscular Hemoglobin 28.8 pg (25.0-34.0); Mean Corpuscular Hgb Conc 33.2 g/dL (32.0-36.0); Mean Corpuscular Volume 86.5 fL (80.0-100.0); Mean Platelet Volume 11.3 fL (9.4-12.4); Monocytes # (auto) 1.16 K/uL (0.11-0.59); Monocytes % (auto) 9.6 %; Neutrophils # (auto) 6.57 K/uL (1.40-6.50); Neutrophils % (auto) 54.4 %; Platelet Count 531 K/uL (130-400); RDW Coefficient of Variation 14.8 % (11.5-14.5); RDW Standard Deviation 46.5 fL (36.4-46.3); Red Blood Count 4.52 M/uL (4.70-6.10); White Blood Count 12.09 K/ul (4.8-10.8)
[2024-05-24 07:01] LABS: ANTI-Xa, UFH(UnfractionatedHep 0.22 IU/ml (0.3-0.7)
[2024-05-24 07:17] LABS: BUN Creatinine Ratio 15.2 (10-20); Calcium 8.6 mg/dl (8.6-10.3); Chol HDL Ratio 2.9 (0-5); Creatinine Clr Calc Pharmacy 82.5 ml/min; Potassium 3.4 mmol/L (3.5-5.1)
[2024-05-24] MEDS: CLOPIDOGREL BISULFATE 75 MG TAB PO SCH (07:59)
[2024-05-24] MEDS: ATORVASTATIN 40 MG TAB PO SCH (08:00)
[2024-05-24] MEDS: ASPIRIN 81 MG ECTAB PO SCH (08:00)
[2024-05-24] MEDS: FUROSEMIDE 40 MG/4 ML VIAL IV SCH (08:01)
[2024-05-24 08:40] LABS: Estimated Average Glucose 143 mg/dl; Hemoglobin A1C 6.6 % (4.5-5.6)
--- NOTE | 2024-05-24 09:55 | Hospitalist Progress Note ---
Date of Service May 24, 2024 Assessment & Plan (1) New onset of congestive heart failure: Plan: -2nd to recent NSTEMI Echo pending Continue statin increased to 40 mg, adjust further based on AM lipid panel. - +Metoprolol 12.5mg BID tartrate - Nitro 0.5inch q6h Lasix 40 mg IV twice daily (2) NSTEMI (non-ST elevated myocardial infarction): Plan: -on heparin drip - awaiting cardiology consult for possible cath (3) PNA (pneumonia): Plan: -Chest x-ray: Bilateral pneumonia CTAchest: No acute PE. Consistent with CHF, some ground glass opacities, pulmonary edema Will continue on treatment with Rocephin/doxycycline for immunity acquired pneumonia. -Suspect predominantly due to NSTEMI and new onset heart failure (4) Peripheral vascular disease: Plan: Aspirin, anticoagulation (5) Tobacco use: Plan: educated on smoking cessation (6) Chronic kidney disease, stage I: Plan: - Baseline creatinine around 0.93 Continue KARLA Plan 44-year-old male with past medical history of poorly controlled type I DM, CKD, PVD who left [facility] after being diagnosed with an NSTEMI 05/22/2024, and he was been treated for pneumonia in the last week who presents to the ER with dyspnea, hypoxia a uptrending troponin and clinical evidence of CHF. Secondary pneumonia is also suspected due to persistent leukocytosis and mixed opacities in addition to edema. Patient has been heparinized for new acute decompensated heart failure without ST elevation on EKG. He is admitted for treatment of new CHF with Lasix, will continue treatment for potential underlying pneumonia, and consult cardiology for ischemic workup? Catheterization Recent NSTEMI, new onset heart failure Seen at OSH, patient left AGAINST MEDICAL ADVICE 05/22/2024 3L new oxygen requirement with fluid overload of the legs, bilateral pleural effusions CTA with bilateral pleural effusions, no PE, and multiple prior glass capacities/pulmonary edema Multiple cardiac risk factors including type I DM poorly controlled, tobacco use, hypertension. Patient with an uncle with an LA at age 37 and his father had an LA at 50s Suspect progressive angina, unstable angina and possible type I event morning of 05/22 Initial troponin 1491.4, repeat pending. Trended every 6 hours. OSH 2035 --> 1495 on 05/22 at [facility]. Uptrending today Echo pending Continue statin increased to 40 mg, adjust further based on AM lipid panel. - +Metoprolol 12.5mg BID tartrate - Nitro 0.5inch q6h Lasix 40 mg IV twice daily, potassium supplementation ordered Pneumonia Leukocytosis of 14 with neutrophilic predominance Has had chills in the last week and a cough preceding his chest pain, received 1 dose of an antibiotic yesterday and is otherwise not taking prednisone or an antibiotic since. Chest x-ray: Bilateral pneumonia CTAchest: No acute PE. Consistent with CHF, some groundglass opacities, pulmonary edema Will continue on treatment with Rocephin/doxycycline for immunity acquired pneumonia. Suspect predominantly due to NSTEMI and new onset heart failure Type I DM Last A1c 8% Reviewed patient's insulin pump on admission. Per settings uses approximately 20 units basal, 4-6 meals sliding scale with meals SSI based on basal rate ordered, will transition to pharmacy controlled glycemic management from pump due to patient having some difficulty with his pump recently. BSG 91 adequate at time of admission CKD Baseline creatinine around 0.93 Continue KARLA Hypertension Continue KARLA, metoprolol Peripheral vascular disease With ongoing tobacco use Had been seen for claudication in 2022. Preferred conservative medical therapy and was continued on cilostazol at that time. Has not been taking this recently. Aspirin, anticoagulation as noted DVT prophylaxis: Anticoagulated Diet: Clears/DM2, n.p.o. midnight pending cath evaluation CODE STATUS: Full code Disposition: PCU Admission and Anticipated Discharge Date Admission Date: May 23, 2024 Subjective Pt states breathing as improved. No chest pain. Review of Systems Review of Systems: CONST: Negative for fever, body aches and chills. HENT: Negative for neck pain/stiffness, headache, congestion, sore throat, swelling. EYES: Negative for discharge/pain or vision changes. RESP: Negative for cough/hemoptysis and shortness of breath. CV: Negative chest pain, difficulty breathing, palpitations. ABD: Negative pain, nausea, vomiting. : Negative increase frequency, dysuria, blood in urine or stool. MUSC: Negative for muscle aches, edema. SKIN: Negative rash, lesions/sores. NEURO: Negative headache, dizziness, weakness. Physical Exam Physical Exam: GENERAL APPEARANCE NAD, activity normal for age, well developed/ well nourished, no cyanosis, pallor, or diaphoresis. EYES lids/conjunctiva normal. EARS/NOSE/THROAT Mucous membranes moist, nares normal, lips/teeth normal uvula midline without oral pharyngeal erythema, exudate or swelling TMs normal bilaterally. No lymphangitis/lymphedema. HEAD/NECK normocephalic atraumatic, no facial trauma, neck is supple. RESPIRATORY respiratory effort normal, speaks in full sentences, no tripod position, no accessory muscle use. Lungs clear to auscultation without rhonchi, wheezes, rales CARDIAC Regular rate and rhythm, no edema. ABDOMINAL Soft, ND/NT. No evidence of fluid wave. No pulsatile masses on exam, rebound tenderness, Parrish sign or pain over Mcburney's point. MUSCLES/EXTREMITIES No abnormal range of motion, no swelling. SKIN Warm, pink and dry. No rashes, dermatoses, petechiae or lesions. NEUROLOGICAL Speech is clear and appropriate. Normal level of consciousness. Gait and coordination are normal. 5/5 strength in all extremities. PSYCH Normal mood and affect. Judgement/competence is appropriate Results & Data Results & Data Vital Signs (Past 12 Hours) Vital Signs Temp Pulse Pulse Resp BP BP Pulse Ox 05/24/24 07:00 36.5 C 89 18 120/77 95 05/24/24 02:33 36.7 C 90 22 120/79 96 05/24/24 00:19 102 H 05/24/24 00:10 36.6 C 103 H 22 144/94 H 93 05/24/24 00:08 05/23/24 23:18 92 H 17 96 05/23/24 23:15 147/101 H 05/23/24 23:00 93 H 21 142/106 H 96 05/23/24 22:45 151/102 H 05/23/24 22:42 95 H 22 94 05/23/24 22:36 105 H 29 H 92 05/23/24 22:30 146/94 H 05/23/24 22:15 140/95 05/23/24 22:11 05/23/24 22:00 138/94 Pulse Ox O2 Del Method O2 Del Method O2 Flow Rate O2 Flow Rate 05/24/24 07:00 Nasal Cannula 4 05/24/24 02:33 Nasal Cannula 4 05/24/24 00:19 05/24/24 00:10 Nasal Cannula 4 05/24/24 00:08 Room Air 05/23/24 23:18 4 05/23/24 23:15 05/23/24 23:00 4 05/23/24 22:45 05/23/24 22:42 05/23/24 22:36 05/23/24 22:30 05/23/24 22:15 05/23/24 22:11 94 Nasal Cannula 4 05/23/24 22:00 PG Care Time/CCT Total # of Minutes Spent Total Time Spent with Patient: Total time spent is greater than 50% in coordination of care (as documented) at patient's floor/unit and/or counseling patient: Coding Level of Care Code 30561 SUB INP/OBS CARE 2/35MIN Diagnoses New onset of congestive heart failure I50.9 NSTEMI (non-ST elevated myocardial infarction) I21.4 PNA (pneumonia) J18.9 Peripheral vascular disease I73.9 Tobacco use Z72.0 Chronic kidney disease, stage I N18.1
--- NOTE | 2024-05-24 09:57 | XCELERA ---
[id number] \\[email or web address]-[facility]IE\[email or web address]_PDF_[email or web address]\[id number]
--- NOTE | 2024-05-24 10:04 | Cardiology Consultation ---
Date of Consultation May 24, 2024 Assessment & Plan (1) NSTEMI (non-ST elevated myocardial infarction): (2) New onset of congestive heart failure: (3) Peripheral vascular disease: (4) Valvular heart disease: (5) Dyslipidemia: Plan 1. NSTEMI: Patient appears to have had an acute coronary syndrome in the past few days. Biomarkers slowly trending downwards. Most of the chest pain he experienced at the time of admission was likely related to his pulmonary vascular congestion. No chest pain currently. Symptoms improved. Multiple risk factors for coronary disease to include his diabetes, tobacco abuse and peripheral vascular disease. I recommend coronary angiography which will be performed during this hospitalization. I explained the risks and alternatives to the patient. He is willing to proceed. Will continue heparin, dual antiplatelet therapy and nitrates currently. Also on beta-blockade. 2. Acute left ventricular systolic failure: Severely reduced LV systolic function. Presentation consistent with pulmonary edema. He has been complaining of some dyspnea for several weeks. Unclear if he could have had an event even more remotely. Undergoing a diuresis with improvement in symptoms. After angiography and possible revascularization will need to start a standard heart failure regimen to include metoprolol succinate, Entresto, and SGLT2 inhibitor and spironolactone. 3. Valvular heart disease: He has an element of mitral and aortic reg urgitation. Will likely improve as his hemodynamics improved. Appears functional. 4. Hyperlipidemia: Will intensify his antilipid regimen. History of Present Illness Reason for Consultation: NSTEMI, congestive heart failure Requesting Physician: Jad Attending Physician: Vladimir Gabriel MD History of Present Illness The patient is a 44-year-old gentleman without a known history of cardiac disease who presented earlier in the week to an outside facility for symptoms of dyspnea and chest discomfort. He was noted at that time to have elevated biomarkers consistent with an NSTEMI and advised to undergo a transfer to facilitate a further workup. However, the patient elected to go home to take care of his 2 children. He continued to have symptoms and yesterday due to severe dyspnea and chest pressure he came to our facility. He was noted to have significant pulmonary edema and elevated biomarkers. Medical therapy was initiated and he was admitted for treatment. The patient states that approximate 1 month ago he began have some symptoms of chest discomfort with activity. This was most noticeable with carrying things and going up stairs. It seems that he was scheduled for an outpatient stress test but missed that appointment due to other obligations. He has been more short of breath recently. Activity has been limited by left calf claudication. He is known to have an element of peripheral vascular disease. Generally speaking he is not limited by dyspnea. He denies symptoms of palpitations, dizziness or lightheadedness. He has not noticed any lower extremity edema although he was told at the outside hospital that he had some left leg edema. His breathing is much improved today. He was able to lie flat which has not been able to do for several days. No chest pressure currently. Allergies Allergy/AdvReac Type Severity Reaction Status Date / Time mirtazapine AdvReac Mild Fatigued Verified 03/18/24 10:38 Home Medications Medication Instructions Recorded Confirmed Type cholecalciferol (vitamin D3) 100 5,000 unit PO DAILY 09/11/22 05/23/24 History mcg (4,000 unit) tablet blood pressure monitor (Blood #1 ea 12/19/22 03/25/24 Rx Pressure Kit) insulin syringe,safety needle 0.5 #700 ea 03/13/23 03/25/24 Rx mL 30 gauge x 5/16" (BD SafetyGlide Insulin Syringe) blood sugar diagnostic (OneTouch #100 ea 06/15/23 03/25/24 Rx Verio test strips) blood-glucose meter,continuous #1 ea 06/16/23 03/25/24 Rx (Dexcom G6 Television Presenter) glucagon 3 mg/actuation nasal 3 mg intranasal ONCE #2 ea 10/21/23 05/23/24 Rx spray (Baqsimi) urine glucose-ketones test #50 ea 11/04/23 03/25/24 Rx atorvastatin 10 mg tablet 10 mg PO DAILY #30 tabs 04/13/24 05/23/24 Rx blood-glucose sensor (Dexcom G6 #9 ea 04/18/24 04/18/24 Rx Sensor device) blood-glucose transmitter (Dexcom #1 ea 04/18/24 04/18/24 Rx G6 Transmitter device) albuterol sulfate 90 mcg/actuation 2 puff inhalation QID PRN 05/23/24 05/23/24 History aerosol inhaler sob/wheeze amoxicillin 875 mg-potassium 1 tab PO BID 05/23/24 05/23/24 History clavulanate 125 mg tablet insulin aspart U-100 100 unit/mL 100 unit subcut UD 05/23/24 05/23/24 History subcutaneous solution (Novolog U-100 Insulin aspart) insulin glargine 100 unit/mL 25 - 30 unit subcut UD 05/23/24 05/23/24 History subcutaneous solution (Lantus U-100 Insulin) lisinopril 2.5 mg tablet 2.5 mg PO UD 05/23/24 05/23/24 History Patient History Medical History Hyperlipidemia Surgical History H/O arthroscopy of shoulder History of tooth extraction H/O shoulder surgery History of eye surgery Family History Father Diabetes Other No family history of adverse response to anesthesia Denies family history of Ovarian cancer Prostate cancer Heart disease Breast cancer Colorectal cancer Social History Smoking Status: Current every day smoker Tobacco Type: Cigarettes Age Started Using Tobacco: 17; packs per day: 1; Cigarettes Per Day: 1 PPD; Second Hand Exposure: No; Do You Dip or Chew Tobacco: No; Tobacco Cessation Education Requested by Patient: No Hx Alcohol Use: No Hx Substance Use: No Preferred Language: Cameroonian Communication Ability: Effective Infection Control Manager Required: No Beliefs That Will Affect Care: None marital status: Single Current Living Situation: Family Current Living Situation Comment: Lives at home with children current occupational status: unemployed Other Information That Helps Us Care for You: No Feels Safe at Home: Yes Safety Concerns: Feels Safe At This Time Diet: regular caffeine: Yes Dental Care, Regularly: Yes Physical Activity Frequency: Does not Exercise Seatbelt Use: never Assistive Devices: None Review of Systems Review of Systems: Per HPI Physical Exam Physical Exam: The patient is alert and oriented. Mood and affect appeared normal. He answered all questions appropriately. HEENT: Pupils are equal and reactive to light and accommodation. Extraocular movements are intact. The sclerae are anicteric. Neuro: Cranial nerves intact Lungs: Clear to auscultation bilaterally. He has good air movement without use of accessory muscles. No rales wheezes or rhonchi. Cardiac: Heart demonstrates a regular rate and rhythm. Normal S1 and S2. Holosystolic murmur Pulses: The patient has palpable radial pulses bilaterally that are equal in intensity Extremities: There was no evidence of hypoperfusion. There is no cyanosis or clubbing. Trace edema bilaterally Skin: I did not appreciate any rashes on examination today. Results & Data Vital Signs (Past 12 Hours) Vital Signs Temp Pulse Pulse Resp BP BP Pulse Ox 05/24/24 07:00 36.5 C 89 18 120/77 95 05/24/24 02:33 36.7 C 90 22 120/79 96 05/24/24 00:19 102 H 05/24/24 00:10 36.6 C 103 H 22 144/94 H 93 05/24/24 00:08 05/23/24 23:18 92 H 17 96 05/23/24 23:15 147/101 H 05/23/24 23:00 93 H 21 142/106 H 96 05/23/24 22:45 151/102 H 05/23/24 22:42 95 H 22 94 05/23/24 22:36 105 H 29 H 92 05/23/24 22:30 146/94 H 05/23/24 22:15 140/95 05/23/24 22:11 05/23/24 22:00 138/94 Pulse Ox O2 Del Method O2 Del Method O2 Flow Rate O2 Flow Rate 05/24/24 07:00 Nasal Cannula 4 05/24/24 02:33 Nasal Cannula 4 05/24/24 00:19 05/24/24 00:10 Nasal Cannula 4 05/24/24 00:08 Room Air 05/23/24 23:18 4 05/23/24 23:15 05/23/24 23:00 4 05/23/24 22:45 05/23/24 22:42 05/23/24 22:36 05/23/24 22:30 05/23/24 22:15 05/23/24 22:11 94 Nasal Cannula 4 05/23/24 22:00 Laboratory Results Abnormal Lab Results 05/23/24 05/23/24 05/23/24 13:44 15:18 17:24 WBC 14.88 H RBC 4.54 L Hgb 13.3 L Hct 39.8 L MCV 87.7 MCH 29.3 MCHC 33.4 RDW Std Deviation 46.8 H RDW Coeff of Ulises 14.7 H Plt Count 520 H MPV 11.4 Immature Gran % (Auto) 0.4 Neut % (Auto) 73.0 Lymph % (Auto) 16.5 Graves % (Auto) 9.8 Eos % (Auto) 0.2 Baso % (Auto) 0.1 Neut # (Auto) 10.85 H Lymph # (Auto) 2.46 Graves # (Auto) 1.46 H Eos # (Auto) 0.03 Baso # (Auto) 0.02 Immature Gran # (Auto) 0.06 PT 12.1 H INR 1.1 APTT 27 PTT Ratio 1.0 Heparin Anti-Xa, Unfract Sodium 140 Potassium 3.5 Chloride 102 Carbon Dioxide 29 Anion Gap 9 BUN 15 Creatinine 1.04 Est Cr Clr Drug Dosing 72.9 eGFR 90.80 BUN/Creatinine Ratio 14.4 Glucose 91 POC Glucose 179 H Estimat Average Glucose Hemoglobin A1c Calcium 9.1 Total Bilirubin 0.8 AST 29 ALT 24 Alkaline Phosphatase 74 Troponin I High Sens 1491.4 H* 1554.4 H* Total Protein 6.6 Albumin 3.9 Globulin 2.7 Albumin/Globulin Ratio 1.4 Triglycerides Cholesterol LDL Cholesterol, Calc VLDL Cholesterol, Calc HDL Cholesterol Cholesterol/HDL Ratio Lipase < 3 L Adenovirus (PCR) B. pertussis DNA (PCR) B.parapertussis DNA PCR C. pneumoniae DNA (PCR) Coronavirus OC43 (PCR) Coronavirus HKU1 (PCR) Coronavirus 229E (PCR) SARS-CoV-2 (PCR) Coronavirus NL63 (PCR) Human Metapneumovir PCR Influenza Type A (PCR) Influenza Type B (PCR) M. pneumoniae (PCR) Parainfluenza 1 (PCR) Parainfluenza 2 (PCR) Parainfluenza 3 (PCR) Parainfluenza 4 (PCR) RSV (PCR) Entero/Rhino (PCR) 05/23/24 05/23/24 05/23/24 20:35 22:13 23:49 WBC RBC Hgb Hct MCV MCH MCHC RDW Std Deviation RDW Coeff of Ulises Plt Count MPV Immature Gran % (Auto) Neut % (Auto) Lymph % (Auto) Graves % (Auto) Eos % (Auto) Baso % (Auto) Neut # (Auto) Lymph # (Auto) Graves # (Auto) Eos # (Auto) Baso # (Auto) Immature Gran # (Auto) PT INR APTT PTT Ratio Heparin Anti-Xa, Unfract 0.34 Sodium Potassium Chloride Carbon Dioxide Anion Gap BUN Creatinine Est Cr Clr Drug Dosing eGFR BUN/Creatinine Ratio Glucose POC Glucose 79 Estimat Average Glucose Hemoglobin A1c Calcium Total Bilirubin AST ALT Alkaline Phosphatase Troponin I High Sens Total Protein Albumin Globulin Albumin/Globulin Ratio Triglycerides Cholesterol LDL Cholesterol, Calc VLDL Cholesterol, Calc HDL Cholesterol Cholesterol/HDL Ratio Lipase Adenovirus (PCR) Not Detected B. pertussis DNA (PCR) Not Detected B.parapertussis DNA PCR Not Detected C. pneumoniae DNA (PCR) Not Detected Coronavirus OC43 (PCR) Not Detected Coronavirus HKU1 (PCR) Not Detected Coronavirus 229E (PCR) Not Detected SARS-CoV-2 (PCR) Not Detected Coronavirus NL63 (PCR) Not Detected Human Metapneumovir PCR Not Detected Influenza Type A (PCR) Not Detected Influenza Type B (PCR) Not Detected M. pneumoniae (PCR) Not Detected Parainfluenza 1 (PCR) Not Detected Parainfluenza 2 (PCR) Not Detected Parainfluenza 3 (PCR) Not Detected Parainfluenza 4 (PCR) Not Detected RSV (PCR) Not Detected Entero/Rhino (PCR) Not Detected 05/24/24 05/24/24 05/24/24 00:19 05:42 06:16 WBC 12.09 H RBC 4.52 L Hgb 13.0 L Hct 39.1 L MCV 86.5 MCH 28.8 MCHC 33.2 RDW Std Deviation 46.5 H RDW Coeff of Ulises 14.8 H Plt Count 531 H MPV 11.3 Immature Gran % (Auto) 0.3 Neut % (Auto) 54.4 Lymph % (Auto) 34.5 Graves % (Auto) 9.6 Eos % (Auto) 0.7 Baso % (Auto) 0.5 Neut # (Auto) 6.57 H Lymph # (Auto) 4.17 H Graves # (Auto) 1.16 H Eos # (Auto) 0.09 Baso # (Auto) 0.06 Immature Gran # (Auto) 0.04 PT INR APTT PTT Ratio Heparin Anti-Xa, Unfract 0.22 L Sodium 142 Potassium 3.4 L Chloride 101 Carbon Dioxide 32 Anion Gap 9 BUN 14 Creatinine 0.92 Est Cr Clr Drug Dosing 82.5 eGFR 105.19 BUN/Creatinine Ratio 15.2 Glucose 53 L* POC Glucose 91 57 L* Estimat Average Glucose 143 Hemoglobin A1c 6.6 H Calcium 8.6 Total Bilirubin AST ALT Alkaline Phosphatase Troponin I High Sens Total Protein Albumin Globulin Albumin/Globulin Ratio Triglycerides 66 Cholesterol 122 LDL Cholesterol, Calc 67 VLDL Cholesterol, Calc 13 HDL Cholesterol 42 Cholesterol/HDL Ratio 2.9 Lipase Adenovirus (PCR) B. pertussis DNA (PCR) B.parapertussis DNA PCR C. pneumoniae DNA (PCR) Coronavirus OC43 (PCR) Coronavirus HKU1 (PCR) Coronavirus 229E (PCR) SARS-CoV-2 (PCR) Coronavirus NL63 (PCR) Human Metapneumovir PCR Influenza Type A (PCR) Influenza Type B (PCR) M. pneumoniae (PCR) Parainfluenza 1 (PCR) Parainfluenza 2 (PCR) Parainfluenza 3 (PCR) Parainfluenza 4 (PCR) RSV (PCR) Entero/Rhino (PCR) 05/24/24 05/24/24 06:19 06:44 WBC RBC Hgb Hct MCV MCH MCHC RDW Std Deviation RDW Coeff of Ulises Plt Count MPV Immature Gran % (Auto) Neut % (Auto) Lymph % (Auto) Graves % (Auto) Eos % (Auto) Baso % (Auto) Neut # (Auto) Lymph # (Auto) Graves # (Auto) Eos # (Auto) Baso # (Auto) Immature Gran # (Auto) PT INR APTT PTT Ratio Heparin Anti-Xa, Unfract Sodium Potassium Chloride Carbon Dioxide Anion Gap BUN Creatinine Est Cr Clr Drug Dosing eGFR BUN/Creatinine Ratio Glucose POC Glucose 59 L* 134 H Estimat Average Glucose Hemoglobin A1c Calcium Total Bilirubin AST ALT Alkaline Phosphatase Troponin I High Sens Total Protein Albumin Globulin Albumin/Globulin Ratio Triglycerides Cholesterol LDL Cholesterol, Calc VLDL Cholesterol, Calc HDL Cholesterol Cholesterol/HDL Ratio Lipase Adenovirus (PCR) B. pertussis DNA (PCR) B.parapertussis DNA PCR C. pneumoniae DNA (PCR) Coronavirus OC43 (PCR) Coronavirus HKU1 (PCR) Coronavirus 229E (PCR) SARS-CoV-2 (PCR) Coronavirus NL63 (PCR) Human Metapneumovir PCR Influenza Type A (PCR) Influenza Type B (PCR) M. pneumoniae (PCR) Parainfluenza 1 (PCR) Parainfluenza 2 (PCR) Parainfluenza 3 (PCR) Parainfluenza 4 (PCR) RSV (PCR) Entero/Rhino (PCR) Diagnostic Findings Echocardiogram 05/24/2024: Severely reduced LV systolic function with ejection fraction of 25 to 30%. Regional wall motion realities consistent with anterior myocardial infarction. Mild aortic regurgitation and mild to moderate mitral regurgitation. Elevated pulmonary pressures. Pleural effusions noted. Chest CTA did not reveal any evidence of pulmonary embolus or aortic disease. Chest x-ray demonstrated severe bilateral pulmonary edema and pleural effusions. PG Care Time/CCT Total # of Minutes Spent Total Time Spent with Patient: Total time spent is greater than 50% in coordination of care (as documented) at patient's floor/unit and/or counseling patient: Coding Level of Care Code 49626 IN/OBS CONSULT LVL 4,60M Diagnoses NSTEMI (non-ST elevated myocardial infarction) I21.4 New onset of congestive heart failure I50.9 Peripheral vascular disease I73.9 Valvular heart disease I38 Dyslipidemia E78.5
[2024-05-24] MEDS: HEPARIN (PORCINE) 1000 UNIT/ML 10 ML (CATH LAB USE ONLY) ONE (14:10)
[2024-05-24] MEDS: fentaNYL citrate PF 100 MCG/2 ML VIAL ONE (14:10)
[2024-05-24] MEDS: niCARdipine 2,000 MCG/20 ML SYR ONE (14:11)
[2024-05-24] MEDS: MIDAZOLAM HCL 1 MG/ML 2ML VIAL ONE (14:11)
[2024-05-24] MEDS: OPTIRAY 350 ONE (14:13)
[2024-05-24] MEDS: NITROGLYCERIN/D5W 100MCG/ML 20ML SYR ONE (14:13)
[2024-05-24 14:20] LABS: ANTI-Xa, LMWH(Low Molecular Wt 0.21 IU/ML (< 0.10)
--- NOTE | 2024-05-24 14:20 | Cardiac Catheterization ---
[facility] Data: Inpatient Nursing Aide Cardiac Status Clinical evaluation leading to the procedure Diagnostic Physicians Name: Ethan Rodriguez MD Closure Device Recommendations: PCI without planned CABG Cardiac Cath Procedure Full Procedure Date May 24, 2024 Pre-Procedure Diagnosis Pre-Procedure Diagnosis: Non STEMI AUC Score AUC Score: 8 Post-Procedure Diagnosis Post-Procedure Diagnosis: Severe CAD and Elevated Intracardiac Pressures Procedure(s) Performed Procedure(s) Performed: Coronary Angiography and Left Heart Cath Senior Data Warehouse Developer Ethan Rodriguez MD Beverage Steward(s) none Estimated Blood Loss Estimated Blood Loss: 5cc Medication(s) Medication(s): Fentanyl, Heparin, Lidocaine 1%, Nicardipine, Nitroglycerin and Versed Summary of Findings Procedure performed: Left heart catheterization, selective coronary angiography Staff mechanical estimator: Ethan Rodriguez MD Indication: The patient is a 44-year-old gentleman without a known history of coronary disease who presented with chest pain and elevated cardiac biomarkers. Also noted to have severely reduced LV systolic function. Procedure in detail: The patient was informed of the risks benefits and alternatives to the intended procedure, he understood such and wished to proceed. He was taken to the cardiac catheterization suite in a fasting state. Conscious sedation was administered per protocol and the patient was monitored electrocardiographically throughout today's procedure. The right wrist area was prepped and draped in u sual sterile fashion. This area was anesthetized using subcutaneous administration of a lidocaine solution. The right radial artery was then accessed using Seldinger technique, and a arterial sheath was placed at this site over a guidewire. The sheath was used to facilitate passage of the cardiac catheter for coronary angiography and left heart catheterization. Coronary angiogram was then obtained in multiple orthogonal views prior to removal of the catheter. At the conclusion of the procedure the sheath was removed and hemostasis was achieved at the access site using manual pressure. The patient tolerated procedure well, there were no immediate complications. Equipment used: 5 [place] 4 Findings: Coronary angiography Left Main: Left main was normal in size and caliber with some mild tapering at the bifurcation of the LAD and left circumflex. No obstructive lesions. Left anterior descending: This vessel is relatively small in caliber. He had had a 70% lesion just proximal to the takeoff of a large diagonal system. The ongoing vessel was relatively small and quite diminutive at the apex. The large branching diagonal system had a 70% stenosis after a large initial branch. Left circumflex: Left circumflex was a small nondominant vessel. There is a complex lesion estimated at 90% in its proximal portion at the takeoff of an OM branch which filled via [id number] collaterals. The ongoing AV groove vessel was diminutive and had some disease in its distal portion. Right coronary artery: Right coronary was a large dominant vessel. He had had a 80% lesion in its proximal to midportion. There were luminal irregularities throughout the remainder of the vessel and approximately 50% lesion in the proximal posterior lateral branch and some nonobstructive disease in the PDA as well. Impression: Right dominant coronary system Severe three-vessel coronary disease involving the mid LAD, large first diagonal system, mid circumflex and proximal to mid right coronary. Elevated left ventricular filling pressures No evidence of aortic stenosis Hemodynamics Rest Ao:: 97/63 mmHg Final Ao: 109/62 mmHg LV: 93/6 mmHg LVEDP 18 mmHg Recommendations Recommendations: PCI without planned CABG Specimens Specimens: None Contrast (mls) 30 Procedural Complication(s) None Disposition PCU I attest to the content of the Intraoperative Record and any orders documented therein. Any exceptions are noted below. [facility] Card Cath Procedure Codes Cardiac Catheterization Procedure 1: Cardiovascular Cath Procedures: 27921 Coronaries and LHC (+/-LV) Moderate Sedation Procedure 1: Sedation/Anesthesia: 28112 Mod Sedation by the same physician;Init15 Min Child Age 5 & Up Procedure 2: Sedation/Anesthesia: 54831 Mod Sedation by the same physician; Ea [id number] Minutes PG Care Time/CCT Total # of Minutes Spent Total Time Spent with Patient: Total time spent is greater than 50% in coordination of care (as documented) at patient's floor/unit and/or counseling patient:
--- NOTE | 2024-05-24 14:20 | Post Anesthesia Assessment ---
Date of Service May 24, 2024 Post Sedation Assessment Vital Signs Temp Pulse Pulse Resp BP BP Pulse Ox 05/24/24 13:31 83 18 135/82 90 05/24/24 10:57 90 05/24/24 10:57 05/24/24 10:26 36.6 C 87 18 125/81 95 05/24/24 07:00 36.5 C 89 18 120/77 95 05/24/24 02:33 36.7 C 90 22 120/79 96 05/24/24 00:19 102 H 05/24/24 00:10 36.6 C 103 H 22 144/94 H 93 05/24/24 00:08 05/23/24 23:18 92 H 17 96 05/23/24 23:15 147/101 H 05/23/24 23:00 93 H 21 142/106 H 96 05/23/24 22:45 151/102 H 05/23/24 22:42 95 H 22 94 05/23/24 22:36 105 H 29 H 92 05/23/24 22:30 146/94 H 05/23/24 22:15 140/95 05/23/24 22:11 05/23/24 22:00 138/94 05/23/24 21:45 98 H 34 H 139/98 94 05/23/24 21:39 115 H 27 H 89 L 05/23/24 21:15 97 H 21 139/104 H 94 05/23/24 21:03 96 H 22 93 05/23/24 21:00 146/102 H 05/23/24 20:45 136/96 05/23/24 20:30 133/93 05/23/24 20:15 95 H 18 125/90 95 05/23/24 20:09 94 H 21 95 05/23/24 20:00 141/100 H 05/23/24 19:45 99 H 28 H 132/90 94 05/23/24 19:42 98 H 24 92 05/23/24 19:30 98 H 25 H 140/95 91 05/23/24 19:15 103 H 22 134/93 92 05/23/24 19:03 113 H 35 H 93 05/23/24 19:00 161/106 H 05/23/24 18:21 110 H 28 H 148/98 H 93 05/23/24 18:16 109 H 05/23/24 18:00 111 H 24 150/105 H 95 05/23/24 17:30 113 H 28 H 163/110 H 93 05/23/24 17:00 160/107 H 05/23/24 16:21 108 H 25 H 92 05/23/24 15:55 117 H 24 161/104 H 92 Pulse Ox O2 Del Method O2 Del Method O2 Flow Rate O2 Flow Rate 05/24/24 13:31 Nasal Cannula 3 05/24/24 10:57 05/24/24 10:57 Nasal Cannula 3 05/24/24 10:26 Room Air 4 05/24/24 07:00 Nasal Cannula 4 05/24/24 02:33 Nasal Cannula 4 05/24/24 00:19 05/24/24 00:10 Nasal Cannula 4 05/24/24 00:08 Room Air 05/23/24 23:18 4 05/23/24 23:15 05/23/24 23:00 4 05/23/24 22:45 05/23/24 22:42 05/23/24 22:36 05/23/24 22:30 05/23/24 22:15 05/23/24 22:11 94 Nasal Cannula 4 05/23/24 22:00 05/23/24 21:45 05/23/24 21:39 05/23/24 21:15 05/23/24 21:03 05/23/24 21:00 05/23/24 20:45 05/23/24 20:30 05/23/24 20:15 4 05/23/24 20:09 4 05/23/24 20:00 05/23/24 19:45 4 05/23/24 19:42 4 05/23/24 19:30 Nasal Cannula 4 05/23/24 19:15 Nasal Cannula 4 05/23/24 19:03 Nasal Cannula 4 05/23/24 19:00 05/23/24 18:21 05/23/24 18:16 05/23/24 18:00 05/23/24 17:30 Nasal Cannula 4 05/23/24 17:00 05/23/24 16:21 05/23/24 15:55 Nasal Cannula 3 Recovery Score Activity: Moves 4 extremities Respiration: Deep Breath/Cough Circulation: +/-20% PreAnes Value Consciousness: Fully Awake Oxygen Saturation: O2 needed for >90% Discharge Sedation Level of Care: Fast Track Phase II Post Sedation Plan On clinical assessment, the patient appears to have tolerated the sedation without complications. Patient is recovering as anticipated. Patient will continue to be monitored by nursing and may be discharged when sedation discharge criteria are met per below protocol. Upon Completions of procedure up to 15 minutes continue every 5 minute vital signs and the P.A.R. score; then discharge to a Phase I or Fast Track to Phase II per the following guidelines: * Discharge Patient to appropriate Phase II area if PAR is 8 or greater or return to pre- procedure baseline. The post - procedure orders will be as directed. * If PAR score is less than 8 or not return to pre-procedure baseline then patient will follow Phase I monitoring till PAR is reached for Phase II. The Phase I may be done in procedure room or may call to secure a Phase I area. * If naloxone or flumazenil are used for reversal, hold in Phase I for continued monitoring from when last reversal dose was given for a minimum of 60 minutes or longer pending the nurse and/or physician discretion of patient condition before discharge to Phase II. Please call the Sedation Physician to re-evaluate and complete post-note for discharge to Phase II area. Do NOT discharge from procedure sedation or Phase 1 until post- sedation evaluation note is complete by procedure /sedation MD Sedation Discharge Instructions to be given to the patient at discharge to home.
--- NOTE | 2024-05-24 14:59 | Pharmacy Report ---
Pharmacy Glycemic Short Note 2 - Date of Service May 24, 2024 - Glycemic Short BSG Results (Last 24 hours): 05/23/24 05/23/24 05/24/24 17:24 20:35 00:19 Glucose POC Glucose 179 H 79 91 05/24/24 05/24/24 05/24/24 05:42 06:16 06:19 Glucose 53 L* POC Glucose 57 L* 59 L* 05/24/24 05/24/24 06:44 11:36 Glucose POC Glucose 134 H 104 H OUTPATIENT ANTIDIABETIC REGIMEN: * insulin pump - if pump failure 10-12 units reported, patient does not know settings for pump * previously following with [facility] - during that time basal 10 units, "guestimates" bolus doses 4-8 units with meals. ASSESSMENT: * 44 year old admitted with new CHF, NSTEMI. NPO this morning undergoing cardiology/clinical lab technologist assessment. Home insulin pump documented as discontinued on admission. Pharmacy consulted for glycemic management. Patient received 10 units of basal insulin yesterday, however BSGs low this AM 50s - treated per hypoglycemia protocol. * BSGs 100s today, now s/p clinical lab technologist and diet starting. Will order basal insulin for HS time, will trial lower dosing of 7 units at HS as unclear if any PO intake at all today. Patient is type 1 diabetic so will need basal insulin. Will continue with looser novolog parameters for now. PLAN FOR INPATIENT GLYCEMIC CONTROL: * Hold outpatient oral diabetes medications * Basal insulin * Lantus 7 units HS * Bolus insulin * NovoLog per scale ACHS or Q6hrs while NPO * Goal Range: Low 110 mg/dL - High 180 mg/dL * Correction Factor: 40 mg/dL/unit * Nutritional / Prandial insulin per carb ratio of 1 unit per 15 grams CHO consumed
[2024-05-24] MEDS: LANTUS PER UNIT CHARGE SQ SCH (20:37)
[2024-05-25] MEDS: INSULIN ASPART PER UNIT CHARGE SC SCH ×3 (00:08→17:15)
[2024-05-25 07:15] LABS: Basophils # (auto) 0.06 K/uL (0.00-0.20); Basophils % (auto) 0.7 %; Eosinophils # (auto) 0.19 K/uL (0.00-0.50); Eosinophils % (auto) 2.3 %; Hematocrit (blood only) 37.3 % (42.0-52.0); Hemoglobin 12.2 g/dl (14.0-18.0); Immature Granulocytes # (auto) 0.03 K/uL (0.01-0.20); Immature Granulocytes % (auto) 0.4 %; Lymphocytes # (auto) 2.68 K/uL (1.20-3.40); Lymphocytes % (auto) 32.3 %; Mean Corpuscular Hemoglobin 28.6 pg (25.0-34.0); Mean Corpuscular Hgb Conc 32.7 g/dL (32.0-36.0); Mean Corpuscular Volume 87.6 fL (80.0-100.0); Mean Platelet Volume 11.2 fL (9.4-12.4); Monocytes # (auto) 0.94 K/uL (0.11-0.59); Monocytes % (auto) 11.3 %; Neutrophils # (auto) 4.39 K/uL (1.40-6.50); Platelet Count 459 K/uL (130-400); RDW Coefficient of Variation 14.6 % (11.5-14.5); RDW Standard Deviation 46.5 fL (36.4-46.3); Red Blood Count 4.26 M/uL (4.70-6.10); White Blood Count 8.29 K/ul (4.8-10.8)
[2024-05-25 07:19] LABS: ANTI-Xa, UFH(UnfractionatedHep < 0.10 IU/ml (0.3-0.7)
[2024-05-25 07:28] LABS: BUN Creatinine Ratio 17.5 (10-20); Calcium 8.5 mg/dl (8.6-10.3); Creatinine Clr Calc Pharmacy 78.2 ml/min; Potassium 3.5 mmol/L (3.5-5.1)
[2024-05-25] MEDS ORDERED: Nursing to Pharmacy Communication SCH ×2 (07:30→14:00)
--- NOTE | 2024-05-25 09:24 | Hospitalist Progress Note ---
Date of Service May 25, 2024 Assessment & Plan (1) New onset of congestive heart failure: Plan: -2nd to recent NSTEMI Echo pending Continue statin increased to 40 mg, adjust further based on AM lipid panel. - +Metoprolol 12.5mg BID tartrate - Nitro 0.5inch q6h Lasix 40 mg IV twice daily (2) NSTEMI (non-ST elevated myocardial infarction): Plan: -on heparin drip -cath showed multi vessel CAD -pt elected for PCI with stent today -cardiology following (3) PNA (pneumonia): Plan: -Chest x-ray: Bilateral pneumonia CTAchest: No acute PE. Consistent with CHF, some ground glass opacities, pulmonary edema Will continue on treatment with Rocephin/doxycycline for immunity acquired pneumonia. -Suspect predominantly due to NSTEMI and new onset heart failure (4) Peripheral vascular disease: Plan: Aspirin, anticoagulation (5) Tobacco use: Plan: educated on smoking cessation (6) Chronic kidney disease, stage I: Plan: - Baseline creatinine around 0.93 Continue KARLA Plan 44-year-old male with past medical history of poorly controlled type I DM, CKD, PVD who left [facility] after being diagnosed with an NSTEMI 05/22/2024, and he was been treated for pneumonia in the last week who presents to the ER with dyspnea, hypoxia a uptrending troponin and clinical evidence of CHF. Secondary pneumonia is also suspected due to persistent leukocytosis and mixed opacities in addition to edema. Patient has been heparinized for new acute decompensated heart failure without ST elevation on EKG. He is admitted for treatment of new CHF with Lasix, will continue treatment for potential underlying pneumonia, and consult cardiology for ischemic workup? Cathet erization DVT prophylaxis: Anticoagulated Diet: Clears/DM2, n.p.o. midnight pending cath evaluation CODE STATUS: Full code Disposition: PCU Admission and Anticipated Discharge Date Admission Date: May 23, 2024 Subjective Pt states breathing as improved. No chest pain. Review of Systems Review of Systems: CONST: Negative for fever, body aches and chills. HENT: Negative for neck pain/stiffness, headache, congestion, sore throat, swelling. EYES: Negative for discharge/pain or vision changes. RESP: Negative for cough/hemoptysis and shortness of breath. CV: Negative chest pain, difficulty breathing, palpitations. ABD: Negative pain, nausea, vomiting. : Negative increase frequency, dysuria, blood in urine or stool. MUSC: Negative for muscle aches, edema. SKIN: Negative rash, lesions/sores. NEURO: Negative headache, dizziness, weakness. Physical Exam Physical Exam: GENERAL APPEARANCE NAD, activity normal for age, well developed/ well nourished, no cyanosis, pallor, or diaphoresis. EYES lids/conjunctiva normal. EARS/NOSE/THROAT Mucous membranes moist, nares normal, lips/teeth normal uvula midline without oral pharyngeal erythema, exudate or swelling TMs normal bilaterally. No lymphangitis/lymphedema. HEAD/NECK normocephalic atraumatic, no facial trauma, neck is supple. RESPIRATORY respiratory effort normal, speaks in full sentences, no tripod position, no accessory muscle use. Lungs clear to auscultation without rhonchi, wheezes, rales CARDIAC Regular rate and rhythm, no edema. ABDOMINAL Soft, ND/NT. No evidence of fluid wave. No pulsatile masses on exam, rebound tenderness, Parrish sign or pain over Mcburney's point. MUSCLES/EXTREMITIES No abnormal range of motion, no swelling. SKIN Warm, pink and dry. No rashes, dermatoses, petechiae or lesions. NEUROLOGICAL Speech is clear and appropriate. Normal level of consciousness. Gait and coordination are normal. 5/5 strength in all extremities. PSYCH Normal mood and affect. Judgement/competence is appropriate Results & Data Results & Data Vital Signs (Past 12 Hours) Vital Signs Temp Pulse Pulse Resp BP Pulse Ox O2 Del Method 05/25/24 08:28 Nasal Cannula 05/25/24 07:10 37.0 C 86 18 127/78 94 Nasal Cannula 05/25/24 05:50 86 130/77 05/25/24 02:46 36.9 C 90 18 116/71 95 Nasal Cannula 05/25/24 00:02 91 H 124/80 05/24/24 23:00 37 C 86 16 105/66 94 Nasal Cannula 05/24/24 22:00 86 O2 Flow Rate 05/25/24 08:28 2 05/25/24 07:10 2.0 05/25/24 05:50 05/25/24 02:46 2 05/25/24 00:02 05/24/24 23:00 2 05/24/24 22:00 PG Care Time/CCT Total # of Minutes Spent Total Time Spent with Patient: Total time spent is greater than 50% in coordination of care (as documented) at patient's floor/unit and/or counseling patient: Coding Level of Care Code 81995 SUB INP/OBS CARE 2/35MIN Diagnoses New onset of congestive heart failure I50.9 NSTEMI (non-ST elevated myocardial infarction) I21.4 PNA (pneumonia) J18.9 Peripheral vascular disease I73.9 Tobacco use Z72.0 Chronic kidney disease, stage I N18.1
--- NOTE | 2024-05-25 11:30 | Pharmacy Report ---
Pharmacy Glycemic Short Note 2 - Date of Service May 25, 2024 - Glycemic Short BSG Results (Last 24 hours): 05/24/24 05/24/24 05/24/24 11:36 16:03 19:45 Glucose POC Glucose 104 H 147 H 182 H 05/25/24 05/25/24 05/25/24 00:02 06:13 06:31 Glucose 86 POC Glucose 158 H 82 05/25/24 11:14 Glucose POC Glucose 92 OUTPATIENT ANTIDIABETIC REGIMEN: * insulin pump - if pump failure 10-12 units reported, patient does not know settings for pump * previously following with [facility] - during that time basal 10 units, "guestimates" bolus doses 4-8 units with meals. ASSESSMENT: 05/25 * Patient received total of 11 units of insulin yesterday, of which 7 units were basal insulin * Fasting BSG 82 mg/dL - NPO today for PCI/stent * Lunch BSG 92 mg/dL - will have a scale for HS for basal 6-7 units 05/24 * 44 year old admitted with new CHF, NSTEMI. NPO this morning undergoing cardiology/labor relations analyst assessment. Home insulin pump documented as discontinued on admission. Pharmacy consulted for glycemic management. Patient received 10 units of basal insulin yesterday, however BSGs low this AM 50s - treated per hypoglycemia protocol. * BSGs 100s today, now s/p labor relations analyst and diet starting. Will order basal insulin for HS time, will trial lower dosing of 7 units at HS as unclear if any PO intake at all today. Patient is type 1 diabetic so will need basal insulin. Will continue with looser novolog parameters for now. PLAN FOR INPATIENT GLYCEMIC CONTROL: * Hold outpatient oral diabetes medications * Basal insulin * Lantus 6-7 units HS * Bolus insulin * NovoLog per scale ACHS or Q6hrs while NPO * Goal Range: Low 110 mg/dL - High 180 mg/dL * Correction Factor: 40 mg/dL/unit * Nutritional / Prandial insulin per carb ratio of 1 unit per 15 grams CHO consumed
--- NOTE | 2024-05-25 17:11 | Cardiology Progress Note ---
Date of Service May 25, 2024 Assessment & Plan (1) NSTEMI (non-ST elevated myocardial infarction): (2) New onset of congestive heart failure: (3) Peripheral vascular disease: (4) Valvular heart disease: (5) Dyslipidemia: Plan 1. NSTEMI: Related to severe multivessel coronary disease. ARLINE-3 flow at the time of his procedure. No current symptoms. We had an extensive discussion regarding options for revascularization to include multivessel stenting versus surgical revascularization. We weighed the pros and cons of both approaches including the anticipated recovery. Using shared decision making we have elected to proceed with percutaneous intervention tomorrow. Will continue dual antiplatelet therapy and beta-blockade. 2. Acute left ventricular systolic failure: Much improved. He is affected a reasonable diuresis and his symptoms have improved significantly. Examination also normalized. Will continue diuretics currently. Will switch his metoprolol to tartrate to metoprolol succinate. Will continue on KARLA inhibition for the time being. I will add spironolactone. Will plan on an SGLT2 inhibitor before discharge. 3. Valvular heart disease: He has an element of mitral and aortic regurgitation. Will likely improve as his hemodynamics improved. Appears functional. 4. Hyperlipidemia: Will intensify his antilipid regimen. 5. Cardiomyopathy: Given his degree of LV dysfunction and his recent event I think he would be a good candidate for discharge with a LifeVest. I can begin this process. Admission and Anticipated Discharge Date Admission Date: May 23, 2024 Subjective This evening the patient claimed to be feeling well. He was anxious to be more mobile. He did not describe any additional chest pain. Breathing is much better. He was actually able to lie flat to sleep last night. Review of Systems Review of Systems: Per HPI Physical Exam Physical Exam: The patient is alert and oriented. Mood and affect appeared normal. He answered all questions appropriately. HEENT: Pupils are equal and reactive to light and accommodation. Extraocular movements are intact. The sclerae are anicteric. Neuro: Cranial nerves intact Lungs: Clear to auscultation bilaterally. He has good air movement without use of accessory muscles. No rales wheezes or rhonchi. Cardiac: Heart demonstrates a regular rate and rhythm. Normal S1 and S2. Holosystolic murmur Pulses: The patient has palpable radial pulses bilaterally that are equal in intensity Extremities: There was no evidence of hypoperfusion. There is no cyanosis or clubbing. Trace edema bilaterally. Good perfusion of the right hand. Skin: I did not appreciate any rashes on examination today. Results & Data Vital Signs (Past 12 Hours) Vital Signs Temp Pulse Pulse Resp BP Pulse Ox O2 Del Method 05/25/24 15:11 36.3 C L 92 H 18 109/71 94 Nasal Cannula 05/25/24 13:05 87 05/25/24 10:37 36.6 C 87 16 125/76 93 Nasal Cannula 05/25/24 08:28 Nasal Cannula 05/25/24 07:10 37.0 C 86 18 127/78 94 Nasal Cannula 05/25/24 07:00 80 05/25/24 05:50 86 130/77 O2 Flow Rate 05/25/24 15:11 2.0 05/25/24 13:05 05/25/24 10:37 2.0 05/25/24 08:28 2 05/25/24 07:10 2.0 05/25/24 07:00 05/25/24 05:50 Laboratory Results Abnormal Lab Results 05/24/24 05/25/24 05/25/24 19:45 00:02 06:13 WBC RBC Hgb Hct MCV MCH MCHC RDW Std Deviation RDW Coeff of Ulises Plt Count MPV Immature Gran % (Auto) Neut % (Auto) Lymph % (Auto) [place] % (Auto) Eos % (Auto) Baso % (Auto) Neut # (Auto) Lymph # (Auto) [place] # (Auto) Eos # (Auto) Baso # (Auto) Immature Gran # (Auto) Heparin Anti-Xa, Unfract Sodium Potassium Chloride Carbon Dioxide Anion Gap BUN Creatinine Est Cr Clr Drug Dosing eGFR BUN/Creatinine Ratio Glucose POC Glucose 182 H 158 H 82 Calcium 05/25/24 05/25/24 05/25/24 06:31 11:14 16:18 WBC 8.29 RBC 4.26 L Hgb 12.2 L Hct 37.3 L MCV 87.6 MCH 28.6 MCHC 32.7 RDW Std Deviation 46.5 H RDW Coeff of Ulises 14.6 H Plt Count 459 H MPV 11.2 Immature Gran % (Auto) 0.4 Neut % (Auto) 53.0 Lymph % (Auto) 32.3 [place] % (Auto) 11.3 Eos % (Auto) 2.3 Baso % (Auto) 0.7 Neut # (Auto) 4.39 Lymph # (Auto) 2.68 [place] # (Auto) 0.94 H Eos # (Auto) 0.19 Baso # (Auto) 0.06 Immature Gran # (Auto) 0.03 Heparin Anti-Xa, Unfract < 0.10 L Sodium 142 Potassium 3.5 Chloride 101 Carbon Dioxide 37 H Anion Gap 4 BUN 17 Creatinine 0.97 Est Cr Clr Drug Dosing 78.2 eGFR 98.72 BUN/Creatinine Ratio 17.5 Glucose 86 POC Glucose 92 218 H Calcium 8.5 L Diagnostic Findings Cardiac catheterization performed yesterday revealed severe three-vessel coronary disease involving the mid LAD, large diagonal branch, small circumflex and mid RCA. Elevated LV filling pressures PG Care Time/CCT Total # of Minutes Spent Total Time Spent with Patient: Total time spent is greater than 50% in coordination of care (as documented) at patient's floor/unit and/or counseling patient: Coding Level of Care Code 09787 SUB INP/OBS CARE 2/35MIN Diagnoses NSTEMI (non-ST elevated myocardial infarction) I21.4 New onset of congestive heart failure I50.9 Peripheral vascular disease I73.9 Valvular heart disease I38 Dyslipidemia E78.5
[2024-05-25] MEDS: LANTUS PER UNIT CHARGE SQ SCH (20:30)
[2024-05-26] MEDS: CARBOHYDRATES FOR HYPOGLYCEMIA PO PRN (06:36)
[2024-05-26 07:35] LABS: Basophils # (auto) 0.06 K/uL (0.00-0.20); Basophils % (auto) 0.8 %; Eosinophils # (auto) 0.16 K/uL (0.00-0.50); Eosinophils % (auto) 2.1 %; Hematocrit (blood only) 39.1 % (42.0-52.0); Hemoglobin 12.7 g/dl (14.0-18.0); Immature Granulocytes # (auto) 0.02 K/uL (0.01-0.20); Immature Granulocytes % (auto) 0.3 %; Lymphocytes # (auto) 2.21 K/uL (1.20-3.40); Lymphocytes % (auto) 28.6 %; Mean Corpuscular Hemoglobin 28.3 pg (25.0-34.0); Mean Corpuscular Hgb Conc 32.5 g/dL (32.0-36.0); Mean Corpuscular Volume 87.3 fL (80.0-100.0); Mean Platelet Volume 11.1 fL (9.4-12.4); Monocytes # (auto) 0.98 K/uL (0.11-0.59); Monocytes % (auto) 12.7 %; Neutrophils # (auto) 4.31 K/uL (1.40-6.50); Neutrophils % (auto) 55.5 %; Platelet Count 429 K/uL (130-400); RDW Coefficient of Variation 14.4 % (11.5-14.5); RDW Standard Deviation 45.4 fL (36.4-46.3); Red Blood Count 4.48 M/uL (4.70-6.10); White Blood Count 7.74 K/ul (4.8-10.8)
[2024-05-26 07:51] LABS: BUN Creatinine Ratio 17.7 (10-20); Calcium 8.4 mg/dl (8.6-10.3); Potassium 3.6 mmol/L (3.5-5.1)
[2024-05-26] MEDS: SPIRONOLACTONE 25 MG TAB PO SCH (08:57)
[2024-05-26] MEDS: METOPROLOL SUCC 25MG EXT REL TAB PO SCH (08:58)
--- NOTE | 2024-05-26 11:09 | Hospitalist Progress Note ---
Date of Service May 26, 2024 Assessment & Plan (1) New onset of congestive heart failure: Plan: -2nd to recent NSTEMI Echo pending Continue statin increased to 40 mg, adjust further based on AM lipid panel. - +Metoprolol 12.5mg BID tartrate - Nitro 0.5inch q6h Lasix 40 mg IV twice daily (2) NSTEMI (non-ST elevated myocardial infarction): Plan: -cath showed multi vessel CAD -pt elected for PCI with stent today 05/26 -cardiology following (3) PNA (pneumonia): Plan: -Chest x-ray: Bilateral pneumonia CTAchest: No acute PE. Consistent with CHF, some ground glass opacities, pulmonary edema Will continue on treatment with Rocephin/doxycycline for immunity acquired pneumonia. -Suspect predominantly due to NSTEMI and new onset heart failure (4) Peripheral vascular disease: Plan: Aspirin, anticoagulation (5) Tobacco use: Plan: educated on smoking cessation (6) Chronic kidney disease, stage I: Plan: - Baseline creatinine around 0.93 Continue KARLA Plan 44-year-old male with past medical history of poorly controlled type I DM, CKD, PVD who left [facility] after being diagnosed with an NSTEMI 05/22/2024, and he was been treated for pneumonia in the last week who presents to the ER with dyspnea, hypoxia a uptrending troponin and clinical evidence of CHF. Secondary pneumonia is also suspected due to persistent leukocytosis and mixed opacities in addition to edema. Patient has been heparinized for new acute decompensated heart failure without ST elevation on EKG. He is admitted for treatment of new CHF with Lasix, will continue treatment for potential underlying pneumonia, and consult cardiology for ischemic workup? Catheterization DVT prophylaxis: Anticoagulated Diet: Clears/DM2, n.p.o. midnight pending cath evaluation CODE STATUS: Full code Disposition: PCU Admission and Anticipated Discharge Date Admission Date: May 23, 2024 Subjective No events overnight. Pt resting in bed. Review of Systems Review of Systems: CONST: Negative for fever, body aches and chills. HENT: Negative for neck pain/stiffness, headache, congestion, sore throat, swelling. EYES: Negative for discharge/pain or vision changes. RESP: Negative for cough/hemoptysis and shortness of breath. CV: Negative chest pain, difficulty breathing, palpitations. ABD: Negative pain, nausea, vomiting. : Negative increase frequency, dysuria, blood in urine or stool. MUSC: Negative for muscle aches, edema. SKIN: Negative rash, lesions/sores. NEURO: Negative headache, dizziness, weakness. Physical Exam Physical Exam: GENERAL APPEARANCE NAD, activity normal for age, well developed/ well nourished, no cyanosis, pallor, or diaphoresis. EYES lids/conjunctiva normal. EARS/NOSE/THROAT Mucous membranes moist, nares normal, lips/teeth normal uvula midline without oral pharyngeal erythema, exudate or swelling TMs normal bilaterally. No lymphangitis/lymphedema. HEAD/NECK normocephalic atraumatic, no facial trauma, neck is supple. RESPIRATORY respiratory effort normal, speaks in full sentences, no tripod position, no accessory muscle use. Lungs clear to auscultation without rhonchi, wheezes, rales CARDIAC Regular rate and rhythm, no edema. ABDOMINAL Soft, ND/NT. No evidence of fluid wave. No pulsatile masses on exam, rebound tenderness, Parrish sign or pain over Mcburney's point. MUSCLES/EXTREMITIES No abnormal range of motion, no swelling. SKIN Warm, pink and dry. No rashes, dermatoses, petechiae or lesions. NEUROLOGICAL Speech is clear and appropriate. Normal level of consciousness. Gait and coordination are normal. 5/5 strength in all extremities. PSYCH Normal mood and affect. Judgement/competence is appropriate Results & Data Results & Data Vital Signs (Past 12 Hours) Vital Signs Temp Pulse Resp BP BP Pulse Ox O2 Del Method 05/26/24 08:00 36.5 C 79 18 108/63 96 Nasal Cannula 05/26/24 03:49 37.0 C 81 16 129/73 96 Nasal Cannula 05/25/24 23:39 36.5 C 89 18 136/78 95 Nasal Cannula O2 Flow Rate 05/26/24 08:00 2 05/26/24 03:49 2.0 05/25/24 23:39 2.0 PG Care Time/CCT Total # of Minutes Spent Total Time Spent with Patient: Total time spent is greater than 50% in coordination of care (as documented) at patient's floor/unit and/or counseling patient: Coding Level of Care Code 68965 SUB INP/OBS CARE 2/35MIN Diagnoses New onset of congestive heart failure I50.9 NSTEMI (non-ST elevated myocardial infarction) I21.4 PNA (pneumonia) J18.9 Peripheral vascular disease I73.9 Tobacco use Z72.0 Chronic kidney disease, stage I N18.1
--- NOTE | 2024-05-26 11:33 | Pharmacy Report ---
Pharmacy Glycemic Short Note 2 - Date of Service May 26, 2024 - Glycemic Short BSG Results (Last 24 hours): 05/25/24 05/25/24 05/26/24 16:18 20:07 06:24 Glucose POC Glucose 218 H 249 H 44 L* 05/26/24 05/26/24 05/26/24 06:26 06:51 06:52 Glucose 223 H POC Glucose 50 L* 209 H 228 H 05/26/24 05/26/24 07:34 11:18 Glucose POC Glucose 156 H 230 H OUTPATIENT ANTIDIABETIC REGIMEN: * insulin pump - if pump failure 10-12 units reported, patient does not know settings for pump * previously following with [facility] - during that time basal 10 units, "guestimates" bolus doses 4-8 units with meals. ASSESSMENT: 05/26: * Pt received total of 12 units yesterday; 7 from Lantus. * Was again hypoglycemic this morning requiring hypoglycemic treatment * Pt NPO for possible PCI this afternoon but with being a type 1 diabetic should still get some of his Lantus, therefore will cut dose down to 4 at HS 05/25 * Patient received total of 11 units of insulin yesterday, of which 7 units were basal insulin * Fasting BSG 82 mg/dL - NPO today for PCI/stent * Lunch BSG 92 mg/dL - will have a scale for HS for basal 6-7 units 05/24 * 44 year old admitted with new CHF, NSTEMI. NPO this morning undergoing cardiology/electrical laboratory technician assessment. Home insulin pump documented as discontinued on admission. Pharmacy consulted for glycemic management. Patient received 10 units of basal insulin yesterday, however BSGs low this AM 50s - treated per hypoglycemia protocol. * BSGs 100s today, now s/p electrical laboratory technician and diet starting. Will order basal insulin for HS time, will trial lower dosing of 7 units at HS as unclear if any PO intake at all today. Patient is type 1 diabetic so will need basal insulin. Will continue with looser novolog parameters for now. PLAN FOR INPATIENT GLYCEMIC CONTROL: * Hold outpatient oral diabetes medications * Basal insulin * Lantus decreased to 4 units at HS * Bolus insulin * NovoLog per scale ACHS or Q6hrs while NPO * Goal Range: Low 110 mg/dL - High 180 mg/dL * Correction Factor: 40 mg/dL/unit * Nutritional / Prandial insulin per carb ratio of 1 unit per 15 grams CHO consumed
--- NOTE | 2024-05-26 16:12 | Electrocardiogram Report ---
Test Reason : Blood Pressure : */* mmHG Vent. Rate : 90 BPM Atrial Rate : 90 BPM P-R Int : 112 ms QRS Dur : 80 ms QT Int : 406 ms P-R-T Axes : 36 43 167 degrees QTcB Int : 496 ms Normal sinus rhythm Left ventricular hypertrophy with repolarization abnormality Prolonged QT Abnormal ECG When compared with ECG of 23-May-2024 13:39, Nonspecific T wave abnormality, improved in Inferior leads T wave inversion now evident in Anterior leads Confirmed by Ethan Rodriguez [id number] on 05/26/2024 4:12:10 PM Referred By: REFERRED SELF Confirmed By: Ethan Rodriguez
--- NOTE | 2024-05-26 16:12 | Pre Anesthesia Assessment ---
Date of Service May 26, 2024 Pre Sedation Assessment Vital Signs Temp Pulse Pulse Resp BP BP Pulse Ox 05/26/24 14:29 98 H 18 132/76 92 05/26/24 08:00 05/26/24 08:00 97.7 F 79 18 108/63 96 05/26/24 03:49 98.6 F 81 16 129/73 96 05/25/24 23:39 97.7 F 89 18 136/78 95 05/25/24 22:00 79 05/25/24 19:45 05/25/24 19:00 98.2 F 92 H 18 116/68 95 O2 Del Method O2 Flow Rate 05/26/24 14:29 Room Air 05/26/24 08:00 Nasal Cannula 2 05/26/24 08:00 Nasal Cannula 2 05/26/24 03:49 Nasal Cannula 2.0 05/25/24 23:39 Nasal Cannula 2.0 05/25/24 22:00 05/25/24 19:45 Nasal Cannula 2 05/25/24 19:00 Nasal Cannula 2 Cardiovascular + regular rate Respiratory + respiratory effort normal Pre-Sedation Airway Assessment Smoking Status: Current every day smoker Hx Sleep Apnea: No Hx Difficult Intubation: No Short, Thick Neck: No Thyromental Distance: > or= 3.5 Finger Breadths Oral Cavity: + Dentures Mallampati Class: III ASA: ASA3 NPO Status Date of Last Intake of Fluids: 05/26/24 Time of Last Intake of Fluids: 08:00 Date of Last Intake of Solid Food: 05/25/24 Time of Last Intake of Solid Foods: 23:30 Procedure Planning Contraindications for Sedation: none Current Medications Reviewed: Yes Notes The planned sedation has been discussed with the patient. Informed Consent was obtained. I have identified the patient, determined the appropriateness of sedation and have assessed the patient immediately prior to the procedure. All medicine(s) and interventions are by my order.
--- NOTE | 2024-05-26 17:31 | Cardiology Progress Note ---
Date of Service May 26, 2024 Assessment & Plan (1) NSTEMI (non-ST elevated myocardial infarction): (2) New onset of congestive heart failure: (3) Peripheral vascular disease: (4) Valvular heart disease: (5) Dyslipidemia: Plan 1. NSTEMI: Will continue dual antiplatelet therapy. On metoprolol. Aggressive risk factor modification including high-dose atorvastatin. Scheduled for percutaneous intervention later today. 2. Acute left ventricular systolic failure: Much improved. He is affected a reasonable diuresis and his symptoms have improved significantly. Examination also normalized. Will continue diuretics currently. On metoprolol succinate, Entresto and spironolactone. Will plan on an SGLT2 inhibitor before discharge. 3. Valvular heart disease: He has an element of mitral and aortic regurgitation. Will likely improve as his hemodynamics improved. Appears functional. 4. Hyperlipidemia: Will intensify his antilipid regimen. 5. Cardiomyopathy: Given his degree of LV dysfunction and his recent event I think he would be a good candidate for discharge with a LifeVest. I have ordered the vest. Will contact case management hopefully can be fitted tomorrow prior to discharge. Admission and Anticipated Discharge Date Admission Date: May 23, 2024 Subjective Feeling well. No recurrent chest pain. Anxious to be more active. Review of Systems Review of Systems: Per HPI Physical Exam Physical Exam: The patient is alert and oriented. Mood and affect appeared normal. He answered all questions appropriately. HEENT: Pupils are equal and reactive to light and accommodation. Extraocular movements are intact. The sclerae are anicteric. Neuro: Cranial nerves intact Lungs: Clear to auscultation bilaterally. He has good air movement without use of accessory muscles. No rales wheezes or rhonchi. Cardiac: Heart demonstrates a regular rate and rhythm. Normal S1 and S2. Holosystolic murmur Pulses: The patient has palpable radial pulses bilaterally that are equal in intensity Extremities: There was no evidence of hypoperfusion. There is no cyanosis or clubbing. Trace edema bilaterally. Good perfusion of the right hand. Skin: I did not appreciate any rashes on examination today. Results & Data Vital Signs (Past 12 Hours) Vital Signs Temp Pulse Resp BP Pulse Ox O2 Del Method O2 Flow Rate 05/26/24 14:29 98 H 18 132/76 92 Room Air 05/26/24 08:00 Nasal Cannula 2 05/26/24 08:00 36.5 C 79 18 108/63 96 Nasal Cannula 2 Laboratory Results Abnormal Lab Results 05/25/24 05/26/24 05/26/24 20:07 06:24 06:26 WBC RBC Hgb Hct MCV MCH MCHC RDW Std Deviation RDW Coeff of Ulises Plt Count MPV Immature Gran % (Auto) Neut % (Auto) Lymph % (Auto) [place] % (Auto) Eos % (Auto) Baso % (Auto) Neut # (Auto) Lymph # (Auto) [place] # (Auto) Eos # (Auto) Baso # (Auto) Immature Gran # (Auto) Sodium Potassium Chloride Carbon Dioxide Anion Gap BUN Creatinine Est Cr Clr Drug Dosing eGFR BUN/Creatinine Ratio Glucose POC Glucose 249 H 44 L* 50 L* Calcium 05/26/24 05/26/24 05/26/24 06:51 06:52 07:34 WBC 7.74 RBC 4.48 L Hgb 12.7 L Hct 39.1 L MCV 87.3 MCH 28.3 MCHC 32.5 RDW Std Deviation 45.4 RDW Coeff of Ulises 14.4 Plt Count 429 H MPV 11.1 Immature Gran % (Auto) 0.3 Neut % (Auto) 55.5 Lymph % (Auto) 28.6 [place] % (Auto) 12.7 Eos % (Auto) 2.1 Baso % (Auto) 0.8 Neut # (Auto) 4.31 Lymph # (Auto) 2.21 [place] # (Auto) 0.98 H Eos # (Auto) 0.16 Baso # (Auto) 0.06 Immature Gran # (Auto) 0.02 Sodium 138 Potassium 3.6 Chloride 98 Carbon Dioxide 34 H Anion Gap 6 BUN 17 Creatinine 0.96 Est Cr Clr Drug Dosing 79.0 eGFR 99.96 BUN/Creatinine Ratio 17.7 Glucose 223 H POC Glucose 209 H 228 H 156 H Calcium 8.4 L 05/26/24 11:18 WBC RBC Hgb Hct MCV MCH MCHC RDW Std Deviation RDW Coeff of Ulises Plt Count MPV Immature Gran % (Auto) Neut % (Auto) Lymph % (Auto) [place] % (Auto) Eos % (Auto) Baso % (Auto) Neut # (Auto) Lymph # (Auto) [place] # (Auto) Eos # (Auto) Baso # (Auto) Immature Gran # (Auto) Sodium Potassium Chloride Carbon Dioxide Anion Gap BUN Creatinine Est Cr Clr Drug Dosing eGFR BUN/Creatinine Ratio Glucose POC Glucose 230 H Calcium PG Care Time/CCT Total # of Minutes Spent Total Time Spent with Patient: Total time spent is greater than 50% in coordination of care (as documented) at patient's floor/unit and/or counseling patient: Coding Level of Care Code 06238 SUB INP/OBS CARE 2/35MIN Diagnoses NSTEMI (non-ST elevated myocardial infarction) I21.4 New onset of congestive heart failure I50.9 Peripheral vascular disease I73.9 Valvular heart disease I38 Dyslipidemia E78.5
[2024-05-26] MEDS: NITROGLYCERIN/D5W 100MCG/ML 20ML SYR ONE (17:34)
[2024-05-26] MEDS: niCARdipine 2,000 MCG/20 ML SYR ONE (17:34)
[2024-05-26] MEDS: NOREPINEPHRINE/D5W 4 MG/250 ML IV ONE (17:35)
[2024-05-26] MEDS: fentaNYL citrate PF 100 MCG/2 ML VIAL ONE (18:12)
[2024-05-26] MEDS: HEPARIN (PORCINE) 1000 UNIT/ML 10 ML (CATH LAB USE ONLY) ONE (18:13)
[2024-05-26] MEDS: MIDAZOLAM HCL 1 MG/ML 2ML VIAL ONE ×2 (18:13→18:30)
[2024-05-26] MEDS: ATROPINE SULFATE 0.1 MG/ML 10ML SYR IV ONE (18:13)
[2024-05-26] MEDS: ONDANSETRON INJ 2 MG/ML 2 ML VIAL ONE (18:14)
[2024-05-26] MEDS: OPTIRAY 350 ONE (18:29)
[2024-05-26] MEDS: CLOPIDOGREL BISULFATE 300 MG TAB ONE (18:30)
--- NOTE | 2024-05-26 18:41 | Post Anesthesia Assessment ---
Date of Service May 26, 2024 Post Sedation Assessment Vital Signs Temp Pulse Pulse Resp BP BP Pulse Ox 05/26/24 14:29 98 H 18 132/76 92 05/26/24 08:00 05/26/24 08:00 97.7 F 79 18 108/63 96 05/26/24 03:49 98.6 F 81 16 129/73 96 05/25/24 23:39 97.7 F 89 18 136/78 95 05/25/24 22:00 79 05/25/24 19:45 05/25/24 19:00 98.2 F 92 H 18 116/68 95 O2 Del Method O2 Flow Rate 05/26/24 14:29 Room Air 05/26/24 08:00 Nasal Cannula 2 05/26/24 08:00 Nasal Cannula 2 05/26/24 03:49 Nasal Cannula 2.0 05/25/24 23:39 Nasal Cannula 2.0 05/25/24 22:00 05/25/24 19:45 Nasal Cannula 2 05/25/24 19:00 Nasal Cannula 2 Recovery Score Activity: Moves 4 extremities Respiration: Deep Breath/Cough Circulation: +/-20% PreAnes Value Consciousness: Fully Awake Oxygen Saturation: > 92% On Room Air Post Anesthesia Score: 10 Discharge Sedation Level of Care: Fast Track Phase II Post Sedation Plan On clinical assessment, the patient appears to have tolerated the sedation without complications. Patient is recovering as anticipated. Patient will continue to be monitored by nursing and may be discharged when sedation discharge criteria are met per below protocol. Upon Completions of procedure up to 15 minutes continue every 5 minute vital signs and the P.A.R. score; then discharge to a Phase I or Fast Track to Phase II per the following guidelines: * Discharge Patient to appropriate Phase II area if PAR is 8 or greater or return to pre- procedure baseline. The post - procedure orders will be as directed. * If PAR score is less than 8 or not return to pre-procedure baseline then patient will follow Phase I monitoring till PAR is reached for Phase II. The Phase I may be done in procedure room or may call to secure a Phase I area. * If naloxone or flumazenil are used for reversal, hold in Phase I for continued monitoring from when last reversal dose was given for a minimum of 60 minutes or longer pending the nurse and/or physician discretion of patient condition before discharge to Phase II. Please call the Sedation Physician to re-evaluate and complete post-note for discharge to Phase II area. Do NOT discharge from procedure sedation or Phase 1 until post- sedation evaluation note is complete by procedure /sedation MD Sedation Discharge Instructions to be given to the patient at discharge to home.
--- NOTE | 2024-05-26 18:44 | Post Operative Brief Note ---
Cardiology Brief Post Op Date of Surgery May 26, 2024 Pre & Post Diagnosis CAD Procedure Succesful PCI of LAD/Diagonal bifurcation with intravascular lithotripsy and 3 TUNDE (2 prox-mid LAD, 1 to diagonal). Successful PCI of RCA with single TUNDE LVEDP post procedure 14 Venereal Disease Investigator Ethan Ndiaye MD Functional Analyst [place] Estimated Blood Loss 25 Findings Consistent with Post-Op Diagnosis Complications none Disposition Accompanied Patient To Recovery: No Disposition: PCU
[2024-05-26] MEDS: LANTUS PER UNIT CHARGE SQ SCH (21:03)
--- NOTE | 2024-05-26 22:52 | Cardiac Catheterization ---
[facility] Data: Knitting Inspector Cardiac Status Clinical evaluation leading to the procedure CAD Presenation: Non STEMI Anginal Classification: CCS IV Heart Failure: NYHA Class: CCS IV Diagnostic Physicians Name: Ethan Ndiaye MD Closure Device Recommendations: PCI without planned CABG Cardiac Cath Procedure Full Procedure Date May 26, 2024 Pre-Procedure Diagnosis Pre-Procedure Diagnosis: Non STEMI and CAD AUC Score AUC Score: 8 Post-Procedure Diagnosis Post-Procedure Diagnosis: Severe CAD and Normal Intracardiac Pressures Procedure(s) Performed Procedure(s) Performed: Coronary Angiography, Left Heart Cath, Drug Eluting Stent, Ultrasound Guided Vascular Access and IVUS Broadcast Maintenance Engineer Ethan Ndiaye MD Reference Services Head(s) [place] Estimated Blood Loss Estimated Blood Loss: 25 Medication(s) Medication(s): Clopidogrel, Fentanyl, Heparin, Lidocaine 1%, Nicardipine, Nitroglycerin, Norepinephrine and Versed Summary of Findings Indication: NSTEMI, LV dysfunction, multivessel CAD. Revascularization options discussed with patient. 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 Access: 6 Fr slender right radial artery under ultrasound guidance Catheters: JR4 guide, EBU 3.5 guide Findings: For full details of patient's coronary angiography please see cath report dictated by Dr. Rodriguez on 05/24/2024. Briefly, patient found to have severe multivessel CAD with calcified 80% stenosis in small mid LAD at takeoff of D1. Bifurcating D1 with 90% proximal stenosis. RCA with 90% mid stenosis. Diminutive circumflex with occluded small OM that fills via right to left collaterals. Decision to proceed with PCI of RCA and LAD/diagonal. -- PCI -- Antithrombotic therapy: Heparin, clopidogrel Procedure: RCA cannulated with JR4 guide Pre-procedure flow ARLINE 3 Back Closer 50 wire passed across lesion into distal vessel Mid RCA lesion predilated with 2.5 compliant balloon Dilated lesion stented with 2.75 x 18 mm Xience drug-eluting stent Stent post-dilated with 3.0 noncompliant balloon Post procedure ARLINE 3 flow, stent well expanded with minimal residual stenosis and no apparent cardiac complications. Left main cannulated with EBU 3.5 guide Back Closer 50 wire navigated across LAD stenosis into distal vessel [place] blue wire placed into second branch of D1 Diagonal stenosis dilated with 2.0 balloon Mid LAD dilated with 2.0 balloon. Post balloon inflation noted to have none flow-limiting dissection in LAD Focal stent stenting to mid D1 into second branch (2.0 x 8 mm Jonathan). Stent postdilated with stent balloon Attempt made to pass 2.25 x 22 mm Jonathan TUNDE across mid LAD unsuccessful due to calcified/angulated stenosis at diagonal LAD predilated with 2.5 balloon, 2.5 NC balloon With aid of a GuideLiner support catheter attempt made to pass 2.25 x 15 mm Jonathan TUNDE across mid LAD but again unsuccessful Further balloon dilation with 2.5 balloon prior to attempt to pass 3.0 shockwave intravascular lithotripsy balloon Shockwave balloon would not pass across stenosis, intravascular lithotripsy administered to stenosis just proximal to diagonal (60 pulses) After IVL still unable to pass 2.25 x 15 balloon 2.5 OTW balloon passed across stenosis and drone pilot 50 wire exchanged for long mailman wire with additional predilation with 2.5 balloon With GuideLiner been able to pass 2.25 x 12 mm Jonathan stent across stenosis and deployed at high atmospheres Second TUNDE (2.5 x 15 mm Jonathan) placed from proximal to mid LAD overlapping proximal aspect of initial stent Stent postdilated with stent balloon to high atmospheres Questionable residual very small dissection behind stent struts. IVUS evaluation showed well apposed stent, well-expanded with no apparent edge complications IA vasodilators administered Post procedure ARLINE III flow in LAD, diagonal with well-expanded stents, minimal residual stenosis and no apparent cardiac complications. During procedure required small IV fluid boluses and low-dose norepinephrine for hypotension to low 80s. Norepinephrine weaned off and pressure stable at completion of procedure. Arterial Closure: TR band Summary: 1. Successful PCI of mid RCA with single drug-eluting stent (2.75 x 18 mm Xience; postdilated with 3.0 NC). 2. Successful PCI of calcified proximal to mid LAD with intravascular lithotripsy and 2 overlapping TUNDE (2.5 x 15, 2.25 x 12 Jonathan). 3. Successful PCI of mid D1 with single TUNDE (2.0 x 8 mm Jonathan). Recommendations: To PCU for continued monitoring Reloaded with clopidogrel 300 mg in Knitting Inspector Continue dual-antiplatelet therapy for at least 1 year, likely indefinitely in the setting of complex multivessel stenting Continue statin, and ASCVD risk factor modification Consult cardiac Rehab Hemodynamics Rest Ao:: 88/50/67 Final Ao: 99/48/72 LV: 89/9 Recommendations Recommendations: PCI without planned CABG Specimens Specimens: None Radiation Exposure (mGy) 4107 Contrast (mls) 145 Anesthesia Moderate 0139-3154 Procedural Complication(s) None Disposition PCU I attest to the content of the Intraoperative Record and any orders documented therein. Any exceptions are noted below. [facility] Card Cath Procedure Codes Cardiac Catheterization Procedure 1: Cardiovascular Cath Procedures: 81923 Left Heart Cath (+/-LV) Therapeutic Services & Ancillary Procedure 1: Cardiovascular Tx and Anc Procedures: 17349 Ultrasonic Guidance Vascular Access Procedure 2: Cardiovascular Tx and Anc Procedures: 01319 IV Ultrasound (Coronary or Graft) Moderate Sedation Procedure 1: Sedation/Anesthesia: 18082 Mod Sedation by the same physician;Init15 Min Child Age 5 & Up Procedure 2: Sedation/Anesthesia: 26082 Mod Sedation by the same physician; Ea [id number] Minutes Angioplasty Procedure 1: Cardiovascular Angioplasty Procedures: 07885 Perq Trluml Coronry Lithotrp Stenting Procedure 1: Cardiovascular Stent Procedures: 95855 Perc transcatheter placement of intracoronary stent(s), with ang Procedure 2: Cardiovascular Stent Procedures: 84514 Ea addl branch of a major coronary artery PG Care Time/CCT Total # of Minutes Spent Total Time Spent with Patient: Total time spent is greater than 50% in coordination of care (as documented) at patient's floor/unit and/or counseling patient:
[2024-05-27] MEDS ORDERED: INSULIN ASPART PER UNIT CHARGE SC SCH ×3 (00:30)
[2024-05-27] MEDS: INSULIN ASPART PER UNIT CHARGE SC SCH (00:44)
[2024-05-27] MEDS: ATORVASTATIN 40 MG TAB PO SCH (08:50)
[2024-05-27] MEDS: METOPROLOL SUCC 50MG EXT REL TAB PO SCH (08:51)
--- NOTE | 2024-05-27 10:39 | Pharmacy Report ---
Pharmacy Glycemic Short Note 2 - Date of Service May 27, 2024 - Glycemic Short BSG Results (Last 24 hours): 05/26/24 05/26/24 05/27/24 11:18 20:15 00:14 POC Glucose 230 H 272 H 221 H 05/27/24 05/27/24 02:52 07:14 POC Glucose 231 H 205 H OUTPATIENT ANTIDIABETIC REGIMEN: * insulin pump - if pump failure 10-12 units reported, patient does not know settings for pump * previously following with [facility] - during that time basal 10 units, "guestimates" bolus doses 4-8 units with meals. ASSESSMENT: 05/27: * Patient received total of 11 units of insulin yesterday, of which 4 units were basal insulin * Fasting BSG 205 mg/dL - RN contacting pharmacy to let us know patient gave himself his own insulin (aspart) last evening and then also again this morning. I notified provider. * Discussed with patient my concerns for using his own insulin and recommended he reach out to this nurse if he has reservations with any dosing we are giving him. Patient denies giving himself any long acting insulin, just aspart during this visit. * Discussed with provider and feel like going back to insulin pump may be best, however patient has dexcom so unable to utilize with current insulin pump. He reports he had more supplies at home and would be able to restart pump once discharged. He doesn't think family could bring in more supplies while he is hospitalized as they live far away * Diet started this morning, reasonable to provide small titration in basal insulin 05/26: * Pt received total of 12 units yesterday; 7 from Lantus. * Was again hypoglycemic this morning requiring hypoglycemic treatment * Pt NPO for possible PCI this afternoon but with being a type 1 diabetic should still get some of his Lantus, therefore will cut dose down to 4 at HS 05/25 * Patient received total of 11 units of insulin yesterday, of which 7 units were basal insulin * Fasting BSG 82 mg/dL - NPO today for PCI/stent * Lunch BSG 92 mg/dL - will have a scale for HS for basal 6-7 units 05/24 * 44 year old admitted with new CHF, NSTEMI. NPO this morning undergoing cardiology/color laboratory technician assessment. Home insulin pump documented as discontinued on admission. Pharmacy consulted for glycemic management. Patient received 10 units of basal insulin yesterday, however BSGs low this AM 50s - treated per hypoglycemia protocol. * BSGs 100s today, now s/p color laboratory technician and diet starting. Will order basal insulin for HS time, will trial lower dosing of 7 units at HS as unclear if any PO intake at all today. Patient is type 1 diabetic so will need basal insulin. Will continue with looser novolog parameters for now. PLAN FOR INPATIENT GLYCEMIC CONTROL: * Hold outpatient oral diabetes medications * Basal insulin * Lantus 4-5 units at HS * Bolus insulin * NovoLog per scale ACHS or Q6hrs while NPO * Goal Range: Low 110 mg/dL - High 180 mg/dL * Correction Factor: 40 mg/dL/unit * Nutritional / Prandial insulin per carb ratio of 1 unit per 15 grams CHO consumed
--- NOTE | 2024-05-27 13:07 | Cardiology Progress Note ---
Date of Service May 27, 2024 Assessment & Plan (1) NSTEMI (non-ST elevated myocardial infarction): (2) New onset of congestive heart failure: (3) Peripheral vascular disease: (4) Valvular heart disease: (5) Dyslipidemia: Plan 1. NSTEMI: Will continue dual antiplatelet therapy. On metoprolol. Aggressive risk factor modification including high-dose atorvastatin. Percutaneous intervention to the LAD, diagonal and right coronary yesterday. 2. Acute left ventricular systolic failure: Much improved. Examination also normalized. Will continue diuretics currently. On metoprolol succinate, Entresto and spironolactone. If an SGLT2 inhibitor is compatible with his diabetes regimen, I would advocate this at the time of discharge. 10 mg daily of Jardiance or Farxiga. 3. Valvular heart disease: He has an element of mitral and aortic regurgitation. Will likely improve as his hemodynamics improved. Appears functional. 4. Hyperlipidemia: On atorvastatin 80 mg daily 5. Cardiomyopathy: Given his degree of LV dysfunction and his recent event I think he would be a good candidate for discharge with a LifeVest. I have ordered the vest. Will contact case management hopefully can be fitted tomorrow prior to discharge. If he is amatory and feeling well, I think he could be discharged today. He should continue aspirin and Plavix, metoprolol succinate 50 mg daily, lisinopril 5 mg daily, spironolactone 25 mg daily. I would advocate starting Jardiance or Farxiga 10 mg daily if its compatible with his diabetes regimen. Continue atorvastatin 80 mg daily. Will look into options for cardiac rehab given the fact that he lives in [place]. Patient to be fitted for wearable defibrillator prior to discharge. Admission and Anticipated Discharge Date Admission Date: May 23, 2024 Subjective This morning patient feels well. Some "weakness" in the right arm, but no pain. Normal movement. No breathing difficulty. No recurrent pain. No dizziness or lightheadedness. Anxious to be more ambulatory. Review of Systems Review of Systems: Per HPI Physical Exam Physical Exam: The patient is alert and oriented. Mood and affect appeared normal. He answered all questions appropriately. HEENT: Pupils are equal and reactive to light and accommodation. Extraocular movements are intact. The sclerae are anicteric. Neuro: Cranial nerves intact Lungs: Clear to auscultation bilaterally. He has good air movement without use of accessory muscles. No rales wheezes or rhonchi. Cardiac: Heart demonstrates a regular rate and rhythm. Normal S1 and S2. Holosystolic murmur Extremities: There was no evidence of hypoperfusion. There is no cyanosis or clubbing. Trace edema bilaterally. Good perfusion of the right hand. Normal movement of the right arm Skin: I did not appreciate any rashes on examination today. Results & Data Vital Signs (Past 12 Hours) Vital Signs Temp Pulse Pulse Resp BP Pulse Ox O2 Del Method 05/27/24 11:22 37.1 C 79 18 111/67 97 Nasal Cannula 05/27/24 08:27 37.2 C 83 18 102/64 95 Nasal Cannula 05/27/24 08:00 81 05/27/24 08:00 Nasal Cannula 05/27/24 03:00 36.7 C 71 19 107/61 98 Nasal Cannula O2 Flow Rate 05/27/24 11:22 2 05/27/24 08:27 2 05/27/24 08:00 05/27/24 08:00 2 05/27/24 03:00 2 PG Care Time/CCT Total # of Minutes Spent Total Time Spent with Patient: Total time spent is greater than 50% in coordination of care (as documented) at patient's floor/unit and/or counseling patient: Coding Level of Care Code 22702 SUB INP/OBS CARE 235MIN Diagnoses NSTEMI (non-ST elevated myocardial infarction) I21.4 New onset of congestive heart failure I50.9 Peripheral vascular disease I73.9 Valvular heart disease I38 Dyslipidemia E78.5
--- NOTE | 2024-05-27 13:31 | Discharge Summary ---
Discharge Summary Date of Service May 27, 2024 Principal Dx & Hospital Course #1 = Principal Diagnosis (1) New onset of congestive heart failure: -2nd to recent NSTEMI Echo pending Continue statin increased to 40 mg, adjust further based on AM lipid panel. - +Metoprolol 12.5mg BID tartrate - Nitro 0.5inch q6h Lasix 40 mg IV twice daily (2) NSTEMI (non-ST elevated myocardial infarction): -cath showed multi vessel CAD -pt elected for PCI with stent today 05/26 -cardiology following (3) PNA (pneumonia): -Chest x-ray: Bilateral pneumonia CTAchest: No acute PE. Consistent with CHF, some ground glass opacities, pulmonary edema Will continue on treatment with Rocephin/doxycycline for immunity acquired pneumonia. -Suspect predominantly due to NSTEMI and new onset heart failure (4) Peripheral vascular disease: Aspirin, anticoagulation (5) Tobacco use: educated on smoking cessation (6) Chronic kidney disease, stage I: - Baseline creatinine around 0.93 Continue KARLA Plan 44-year-old male with past medical history of poorly controlled type I DM, CKD, PVD [facility] 05/22/[facility]24, and he was been treated for pneumonia in the last week who presents to the ER with dyspnea, hypoxia a uptrending troponin and clinical evidence of CHF. Secondary pneumonia is also suspected due to persistent leukocytosis and mixed opacities in addition to edema. Patient has been heparinized for new acute decompensated heart failure without ST elevation on EKG. He is admitted for treatment of new CHF with Lasix, will continue treatment for potential underlying pneumonia, and consult cardiology for ischemic workup? Ca theterization DVT prophylaxis: Anticoagulated Diet: Clears/DM2, n.p.o. midnight pending cath evaluation CODE STATUS: Full code Disposition: PCU Admission HPI Per Admitting Provider Jm is a 44-year-old male with past medical history of CKD, PVD, tobacco use, uncontrolled type 1 diabetes, depression who presents to the ER with 5 days of dyspnea and fatigue, was told at an OSH that he may have had a heart attack and heart failure and was being transferred to another hospital but could not follow through with this due to childcare needs. After securing childcare does return to the ER at [facility] as he has providers in the area. Reports pneumonia on chest x-ray 1 week ago and was started on antibiotics, in halers, steroids Isreal is seen at the bedside. Reports he had intermittent chest pain with exertion for a few weeks, but hadn't followed up on this yet. Missed his stress test due to son having th eflu. last week chest pain is much worse with exertion and going up stairs, takes longer to improve. yesterday occured for the first time while sleeping and woke him from sleep. That was the first time he had cp at rest. Did seem more severe than previously. Went to [facility] and was dx with NSTEMI. Left AMA due to childcare conerns Today 2-3x episdoes of cehst pain at rest lasting less than a minute. Chest pain free on admit assessment. Shortness of breath developed abruptly yesterday, and progressively worsening since. WOrse trying to lay flat/sleep. Legs are swollen in the last day. takes baby aspirin daily usually, did not take today beacuse they gave him 3 doses yesterday, a steroid, and an antibiotic yesterday Patient's uncle had an AL at age 37, father had an AL in 50s prescribed lisinopril but hasn't taken recently due to lightheadedness Is also had a feeling of feverishness and chills although no documented temperature in the last week. Has had a cough. DM1, on insulin pump. Not sure of basal rate. Not sure of 24 hour TDD. 20 u basal, 4-6 per meal based on PUMP No aspirin today Medical History: Reviewed Medications: Reviewed Surgical History: Reviewed Family history: Reviewed Allergies: Reviewed Social History: +Tobacco use. 1ppd. No ETOH Code Status: Full. Surrogate DM Yenifer Cass. Discharge Exam GENERAL APPEARANCE NAD, activity normal for age, well developed/ well nourished, no cyanosis, pallor, or diaphoresis. EYES lids/conjunctiva normal. EARS/NOSE/THROAT Mucous membranes moist, nares normal, lips/teeth normal uvula midline without oral pharyngeal erythema, exudate or swelling TMs normal bilaterally. No lymphangitis/lymphedema. HEAD/NECK normocephalic atraumatic, no facial trauma, neck is supple. RESPIRATORY respiratory effort normal, speaks in full sentences, no tripod position, no accessory muscle use. Lungs clear to auscultation without rhonchi, wheezes, rales CARDIAC Regular rate and rhythm, no edema. ABDOMINAL Soft, ND/NT. No evidence of fluid wave. No pulsatile masses on exam, rebound tenderness, Parrish sign or pain over Mcburney's point. MUSCLES/EXTREMITIES No abnormal range of motion, no swelling. SKIN Warm, pink and dry. No rashes, dermatoses, petechiae or lesions. NEUROLOGICAL Speech is clear and appropriate. Normal level of consciousness. Gait and coordination are normal. 5/5 strength in all extremities. PSYCH Normal mood and affect. Judgement/competence is appropriate Discharge Plan Discharge Items Patient Disposition: Home - Self-Care Reason For Visit: NSTEMI, NEW CHF Discharge Diagnosis: NSTEMI, CHF Activity: Resume your previous activity Non-emergency contact: Primary Care Provider Call non-emergency contact if: you have any medication questions Follow-up/Referrals: Jignesh Kingston DO [Primary Care Provider] - Diet: Regular Addtl Attending Provider Instructions: Follow up with PMD in 2 weeks Pending Studies at Discharge: No Stand-Alone Forms: [facility] [employer] [employer], Smoking Cessation Medications and DC Order Prescriptions: New metoprolol succinate 50 mg Tablet Extended Release 24 Hr 50 mg PO QAM Qty: 30 0RF clopidogrel 75 mg Tablet 75 mg PO QAM Qty: 30 0RF aspirin 81 mg Tablet,Delayed Release (Dr/Ec) 81 mg PO DAILY Qty: 30 0RF spironolactone 25 mg Tablet 25 mg PO QAM Qty: 30 0RF atorvastatin 40 mg Tablet 80 mg PO QAM Qty: 30 0RF Continued (DME) blood pressure monitor [Blood Pressure Kit] Kit See Rx Instructions .Route Qty: 1 0RF Rx Instructions: As directed (DME) BD SafetyGlide Insulin Syringe 0.5 mL 30 gauge x 5/16" syringe See Rx Instructions .Route Qty: 700 3RF Rx Instructions: Use up to 7 per day. [facility] [id number] (DME) Dexcom G6 Front Desk [facility] See Rx Instructions .Route Qty: 1 0RF Rx Instructions: use to continuously monitor glucose levels (DME) urine glucose-ketones test Strip See Rx Instructions .Route Qty: 50 3RF Rx Instructions: check when blood sugars are high and for sick days cholecalciferol (vitamin D3) 100 mcg (4,000 unit) tablet 5,000 unit PO DAILY (DME) OneTouch Verio test strips Strip See Rx Instructions .ROUTE .MEDSUPPLY Qty: 100 3RF Rx Instructions: Test blood sugar once daily PRN Baqsimi 3 mg/actuation spray,non-aerosol 3 mg intranasal ONCE Qty: 2 5RF (DME) Dexcom G6 Sensor Device See Rx Instructions .Route Qty: 9 5RF Rx Instructions: Change every 10 days (DME) Dexcom G6 Transmitter Device See Rx Instructions .Route Qty: 1 3RF Rx Instructions: Change every 90 days albuterol sulfate 90 mcg/actuation HFA aerosol inhaler 2 puff INHALATION QID PRN (Reason: sob/wheeze) insulin glargine [Lantus U-100 Insulin] 100 unit/mL solution 25 - 30 unit SQ UD Rx Instructions: uses as back up incase of pump failure insulin aspart U-100 [Novolog U-100 Insulin aspart] 100 unit/mL solution 100 unit subcut UD Rx Instructions: uses with pump inject with meals and sliding scale; TDD 80 units lisinopril 2.5 mg tablet 2.5 mg PO UD Rx Instructions: 2.5 mg po bid. Stopped taking due to getting light headed, left on list. Discontinued atorvastatin 10 mg tablet 10 mg PO DAILY Qty: 30 5RF amoxicillin-pot clavulanate 875-125 mg tablet 1 tab PO BID Discharge Orders: Discharge Order (Routine); Ordered 05/27/24 Ordered By: Vladimir Gabriel Admission Data Admit Date/Time: 05/23/24 16:47 Attending Provider: Vladimir Gabriel Admit Provider: Ramirez Street Primary Care Provider: Jignesh Kingston. Other Providers: Ramirez [address]; Ethan Rodriguez Hospital Stay Data Consultations 05/23/24 16:36 ED Decision to Admit Stat 05/24/24 04:36 Consult Cardiology Routine Procedures Performed Operation Date: 05/26/24 15:30 Actual Procedures p Cineradiography w/Routine Exam - Ethan Ndiaye MD p Drug Eluting Stent SGl Vessel - Ethan Ndiaye MD s IVUS Coronary Single Vessel - Ethan Ndiaye MD s Perc Kat Coronary Lithotripsy - Ethan Ndiaye MD s Drug Eluting Stent each ADDTL Vessel - Ethan Ndiaye MD s Cath, Left with Cors and Vent - Ethan Ndiaye MD Diagnostic Imagining Performed 05/23/24 15:05 CT for pulmonary embolism PE [CT angio chest PE protocol] Stat 05/24/24 13:37 CL Cath Imgs for PACS use only Routine 05/26/24 06:39 CL Cath Imgs for PACS use only Routine 05/26/24 10:50 CL IVUS Coronary Single Vessel Routine Pending Results Patient Have Any Pending Studies at Discharge: No Discharge Instructions Given to Patient (Per Discharging Provider) Follow up with PMD in 2 weeks Total Time Total Time Spent Total Time Spent (In Minutes): 50 Coding Level of Care Code 71991 INP/OBS DISCH >30 MIN Diagnoses New onset of congestive heart failure I50.9 NSTEMI (non-ST elevated myocardial infarction) I21.4 PNA (pneumonia) J18.9 Peripheral vascular disease I73.9 Tobacco use Z72.0 Chronic kidney disease, stage I N18.1
[2024-05-27 14:45] LABS: BUN Creatinine Ratio 18.8 (10-20); Calcium 8.7 mg/dl (8.6-10.3); Creatinine Clr Calc Pharmacy 67.7 ml/min; Potassium 3.4 mmol/L (3.5-5.1)
--- NOTE | 2024-05-27 18:10 | Electrocardiogram Report ---
Test Reason : Blood Pressure : */* mmHG Vent. Rate : 76 BPM Atrial Rate : 76 BPM P-R Int : 116 ms QRS Dur : 78 ms QT Int : 492 ms P-R-T Axes : 14 47 181 degrees QTcB Int : 553 ms Normal sinus rhythm Prolonged QT Abnormal ECG When compared with ECG of 25-May-2024 16:13, T wave inversion more evident in Anterior leads QT has lengthened Confirmed by Ethan Rodriguez ([id number]) on 05/27/2024 6:10:39 PM Referred By: REFERRED SELF Confirmed By: Ethan Rodriguez
[2024-05-27] MEDS: LANTUS PER UNIT CHARGE SQ SCH (21:00)
[2024-05-28 07:49] VITALS: RESP 20; TEMP 97.7; O2SAT 95
--- NOTE | 2024-05-28 10:52 | Hospitalist Progress Note ---
Date of Service May 28, 2024 Assessment & Plan (1) New onset of congestive heart failure: Plan: -2nd to recent NSTEMI Echo pending Continue statin increased to 40 mg, adjust further based on AM lipid panel. - +Metoprolol 12.5mg BID tartrate - Nitro 0.5inch q6h Lasix 40 mg IV twice daily (2) NSTEMI (non-ST elevated myocardial infarction): Plan: -cath showed multi vessel CAD -pt elected for PCI with stent today 05/26 -cardiology following -Pt had stent placed x4 -will be discharged home with cardiac vest (3) PNA (pneumonia): Plan: -Chest x-ray: Bilateral pneumonia CTAchest: No acute PE. Consistent with CHF, some ground glass opacities, pulmonary edema Will continue on treatment with Rocephin/doxycycline for immunity acquired pneumonia. -Suspect predominantly due to NSTEMI and new onset heart failure (4) Peripheral vascular disease: Plan: Aspirin, anticoagulation (5) Tobacco use: Plan: educated on smoking cessation (6) Chronic kidney disease, stage I: Plan: - Baseline creatinine around 0.93 Continue KARLA Plan 44-year-old male with past medical history of poorly controlled type I DM, CKD, PVD [facility], and he was been treated for pneumonia in the last week who presents to the ER with dyspnea, hypoxia a uptrending troponin and clinical evidence of CHF. Secondary pneumonia is also suspected due to persistent leukocytosis and mixed opacities in addition to edema. Patient has been heparinized for new acute decompensated heart failure without ST elevation on EKG. He is admitted for treatment of new CHF with Lasix, will continue treatment for potential underlying pneumonia, and consult cardiology for ischemic workup? Catheterization DVT prophylaxis: Anticoagulated Diet: Clears/DM2, n.p.o. midnight pending cath evaluation CODE STATUS: Full code Disposition: PCU Admission and Anticipated Discharge Date Admission Date: May 23, 2024 Subjective No events overnight. Pt resting in bed, awaiting vest placement prior to d/c. Review of Systems Review of Systems: CONST: Negative for fever, body aches and chills. HENT: Negative for neck pain/stiffness, headache, congestion, sore throat, swelling. EYES: Negative for discharge/pain or vision changes. RESP: Negative for cough/hemoptysis and shortness of breath. CV: Negative chest pain, difficulty breathing, palpitations. ABD: Negative pain, nausea, vomiting. : Negative increase frequency, dysuria, blood in urine or stool. MUSC: Negative for muscle aches, edema. SKIN: Negative rash, lesions/sores. NEURO: Negative headache, dizziness, weakness. Physical Exam Physical Exam: GENERAL APPEARANCE NAD, activity normal for age, well developed/ well nourished, no cyanosis, pallor, or diaphoresis. EYES lids/conjunctiva normal. EARS/NOSE/THROAT Mucous membranes moist, nares normal, lips/teeth normal uvula midline without oral pharyngeal erythema, exudate or swelling TMs normal bilaterally. No lymphangitis/lymphedema. HEAD/NECK normocephalic atraumatic, no facial trauma, neck is supple. RESPIRATORY respiratory effort normal, speaks in full sentences, no tripod position, no accessory muscle use. Lungs clear to auscultation without rhonchi, wheezes, rales CARDIAC Regular rate and rhythm, no edema. ABDOMINAL Soft, ND/NT. No evidence of fluid wave. No pulsatile masses on exam, rebound tenderness, Parrish sign or pain over Mcburney's point. MUSCLES/EXTREMITIES No abnormal range of motion, no swelling. SKIN Warm, pink and dry. No rashes, dermatoses, petechiae or lesions. NEUROLOGICAL Speech is clear and appropriate. Normal level of consciousness. Gait and coordination are normal. 5/5 strength in all extremities. PSYCH Normal mood and affect. Judgement/competence is appropriate Results & Data Results & Data Vital Signs (Past 12 Hours) Vital Signs Temp Pulse Pulse Resp BP Pulse Ox O2 Del Method 05/28/24 08:00 Room Air 05/28/24 07:28 36.5 C 76 20 137/75 95 Room Air 05/28/24 07:06 98 H 05/28/24 03:08 36.7 C 74 18 135/75 94 Room Air 05/28/24 00:56 83 05/28/24 00:56 Room Air PG Care Time/CCT Total # of Minutes Spent Total Time Spent with Patient: Total time spent is greater than 50% in coordination of care (as documented) at patient's floor/unit and/or counseling patient: Coding Level of Care Code 22364 SUB INP/OBS CARE 2/35MIN Diagnoses New onset of congestive heart failure I50.9 NSTEMI (non-ST elevated myocardial infarction) I21.4 PNA (pneumonia) J18.9 Peripheral vascular disease I73.9 Tobacco use Z72.0 Chronic kidney disease, stage I N18.1
[2024-05-28 11:00] VITALS: BP 129/73; PULSE 85
== END 2024-05-28 12:29 | disposition home or self-care (01) | DRG 280 ==
LOC: ED 13:17 → SUATTDRO 16:47 → EDINP 16:47 → 2S 20:57